=== PATIENT | female | born 1955 | race Caucasian/White ===

== ENCOUNTER 2018-12-04 11:25 | Inpatient (IN) | payer BC ==
[~2018-12-04] VITALS: Ht 157.5 cm; Wt 84.4 kg
[~2018-12-04 11:25] MED LIST: ATIVAN1 MG PO; CHRONULAC30 ML PO; GLUCOPHAGE1000 MG PO; LIBRIUM25 MG PO; MACROBID100 MG PO; OMEPRAZOLE20 M1 PO; PEPCID20 MG PO; PROZAC20 MG PO; THERAGRAN M [BK1 TAB PO; XIFAXAN550 MG PO
[2018-12-04] MEDS ORDERED: NEURONTIN 300300 MG PO (11:56)
[2018-12-04] MEDS ORDERED: TRAZODONE HCL150 MG PO (11:58)
--- NOTE | 2018-12-04 12:07 | NUR ---
22G IV X1 STICK TO LEFT FOREARM AND RIGHT AC. DRESSING APPLIED TO BOTH SITES, CDI.
[2018-12-04 12:20] VITALS: BP 113/36; BMI 34.1
[2018-12-04 13:11] LABS: BASOPHILS 0.5 % (0-2); EOSINOPHILS 1.1 % (0-7); IMMATURE GRANULOCYTES 0.2 % (0-5); LYMPHOCYTES 20.6 % (15-50); MCH 22.8 pg (26.0-34.0); MCHC 29.8 g/dL (31.0-37.0); MCV 76.4 fL (80.0-100.0); MEAN PLATELET VOLUME 10.4 fL (7.4-10.4); NEUTROPHILS 70.6 % (40-80); PLATELET COUNT 121 10x3/uL (130-400); RBC 2.59 10x6/uL (4.00-5.40); RDW 15.6 % (11.5-14.5); WBC 6.3 10x3/uL (4.8-10.8)
[2018-12-04 13:13] LABS: HEMATOCRIT 19.8 % (36.0-48.0); HEMOGLOBIN 5.9 g/dL (12-16)
[2018-12-04 13:57] LABS: % SATURATION 3 % (15-55); IRON 13 ug/dl (35-150); TOTAL IRON BIND CAPACITY 406 ug/dl (260-445); UNSAT IRON BIND CAPACITY 393 ug/dl (150-375)
[2018-12-04 14:08] LABS: INR 1.16 (0.85-1.17); PROTIME 14.2 SECONDS (11.6-15.0)
[2018-12-04 14:13] LABS: APTT 34.2 SECONDS (22.8-39.4)
--- NOTE | 2018-12-04 14:57 | NUR ---
1/2 UNITS OF BLOOD STARTING TRASNFUSE AT 100 CC/HR PATIENT HAS NEVER RECEIVED BLOOD.
[2018-12-04 15:49] LABS: ALBUMIN 3.1 g/dL (3.4-5.0); ANION GAP 19.1 mmol/L (8-16); BILIRUBIN - TOTAL 0.41 mg/dL (0.2-1.3); CALCIUM 8.8 mg/dL (8.5-10.1); CARBON DIOXIDE 20.1 mmol/L (21.0-32.0); POTASSIUM - SERUM 4.2 mmol/L (3.5-5.1); PROTEIN - SERUM 6.2 g/dL (6.4-8.2)
--- NOTE | 2018-12-04 16:05 | NUR ---
WILL ORDER FOR REDRAW FOR CBC ONE HOUR AFTER THE SECOND UNIT OF BLOOD IS DONE INFUSING.
--- NOTE | 2018-12-04 18:28 | NUR ---
PT HAS JUST INFORMED ME THAT SHE HAD A BM AND HAD BRIGHT RED BLOOD IN STOOL. I PUT A HAT IN THE TOIELT AND TOLD HER NEXT TIME SHE HAS A BM TO USE IT AND PUSH HER CALL LIGHT.
--- NOTE | 2018-12-04 18:33 | NUR ---
POST TRANSFUSION WITH FIRST UNIT WITH TEMP OF 99.4. PAGE INTO DR FONG FOR SOME TYLENOL AND ALSO TO LET HIM KNOW THAT PATIENT PASSED SOME BRIGHT RED STOOL AND MADE PRIMARY NURSE JACKELIN AWARE OF THIS.
--- NOTE | 2018-12-04 18:44 | NUR ---
DR FNOG TO CALL BACK WITH NEW ORDERS.
--- NOTE | 2018-12-04 18:44 | NUR ---
MAY WAIT 1-2HRS TO TRANSFUE 2ND UNIT OF BLOOD. PT IS FEBRILE AT 99.4. WILL GIVE TYLENOL AND RECHECK
--- NOTE | 2018-12-04 19:20 | NUR ---
PATIENT RESTING WITH NO S/S OF DISTRESS AND GUEST AT BEDSIDE. PATIENT DENIES NEEDS AT THIS TIME. TEMP 99.4, TYLENOL WAS ADMINISTERED BY DAYSHIFT NURSE. WILL RECHECK TEMP PRIOR TO ADMINISTERING SECOND UNIT PRBC'S. BED IN LOWEST POSITION AND CALL LIGHT WITHIN REACH. ENCOURAGED THE PATIENT TO CALL IF SHE HAS NEEDS. WILL CONTINUE TO MONITOR.
[2018-12-04 19:53] VITALS: BP 114/38
--- NOTE | 2018-12-04 20:47 | NUR ---
PATIENT REQUESTED THAT DOCTOR BE CALLED TO ASK IF SHE CAN EAT PRIOR TO MIDNIGHT.
--- NOTE | 2018-12-04 20:50 | NUR ---
PAGED DR. FONG IN REGARDS TO PATIENT REQUEST
[2018-12-04 22:11] VITALS: BP 101/41
--- NOTE | 2018-12-04 22:15 | NUR ---
BEGAN TRANSFUSING SECOND UNIT PRBC'S
[2018-12-04 22:30] VITALS: BP 133/50
--- NOTE | 2018-12-04 22:36 | NUR ---
MONITORING PATIENT WHILE BLOOD TRANSFUSING. NO S/S OF DISTRESS, VSS.
[2018-12-04 23:00] VITALS: BP 107/40
[2018-12-05] VITALS (8 sets, daily range): BP systolic 101–120; BP diastolic 31–59; Ht 157.5 cm; Wt 84.4 kg
[2018-12-05 03:09] LABS: BASOPHILS 0.4 % (0-2); EOSINOPHILS 2.6 % (0-7); HEMATOCRIT 22.5 % (36.0-48.0); IMMATURE GRANULOCYTES 0.2 % (0-5); LYMPHOCYTES 36.4 % (15-50); MCH 24.7 pg (26.0-34.0); MCHC 32.4 g/dL (31.0-37.0); MCV 76.3 fL (80.0-100.0); MEAN PLATELET VOLUME 10.7 fL (7.4-10.4); MONOCYTES 8.1 % (2-11); NEUTROPHILS 52.3 % (40-80); PLATELET COUNT 103 10x3/uL (130-400); RBC 2.95 10x6/uL (4.00-5.40); RDW 15.4 % (11.5-14.5); WBC 4.9 10x3/uL (4.8-10.8)
[2018-12-05 03:13] LABS: HEMOGLOBIN 7.3 g/dL (12-16)
--- NOTE | 2018-12-05 03:17 | NUR ---
REC'D LAB RESULTS, HGB 7.3
[2018-12-05 03:28] LABS: ALKALINE PHOSPHATASE 63 U/L (46-116); ALT (SGPT) 19 U/L (10-68); BILIRUBIN - TOTAL 0.98 mg/dL (0.2-1.3); CARBON DIOXIDE 22.8 mmol/L (21.0-32.0); CHLORIDE - SERUM 110 mmol/L (98-107); POTASSIUM - SERUM 3.8 mmol/L (3.5-5.1); PROTEIN - SERUM 5.9 g/dL (6.4-8.2); SODIUM 144 mmol/L (136-145); UREA NITROGEN 11 mg/dL (7-18); eGFR NON AFRICAN AMERICAN 89 mL/min (90-120)
[2018-12-05 03:30] LABS: CALC OSMOLALITY 287 mosm/kg (275-300); CREATININE - SERUM 0.7 mg/dL (0.6-1.3); GLUCOSE 133 mg/dL (74-106)
--- NOTE | 2018-12-05 03:42 | NUR ---
NOTIFIED DR. FONG THAT THE PATIENT HAS A CRITICAL LOW HGB OF 7.3. DR. FONG ORDERED TO TRANSFUSE 2 MORE UNITS OF PRBC'S.
--- NOTE | 2018-12-05 04:10 | NUR ---
BEGAN TRANSFUSING THIRD UNIT PRBC'S PER ORDERS
--- NOTE | 2018-12-05 06:46 | NUR ---
BEGAN TRANSFUSING 4TH UNIT PRBC'S. NO S/S OF DISTRESS.
--- NOTE | 2018-12-05 07:00 | NUR ---
REPORT RECIEVED. PT CURRENTLY SITTING SEMI FOWLERS IN BED. SHE HAS A L FA PIV INFUSING BLOOD @ 100 AND A R AC THAT IS SL. GI LAB IS CURRENTLY IN ROOM GETTING PT READY FOR HER EGD. RR EVEN AND UNLABORED. NO DISTRESS NOTED. WILL CTM
[2018-12-05 10:08] LABS: BASOPHILS 0.4 % (0-2); IMMATURE GRANULOCYTES 0.4 % (0-5); LYMPHOCYTES 24.7 % (15-50); MCH 25.8 pg (26.0-34.0); MCHC 33.1 g/dL (31.0-37.0); MEAN PLATELET VOLUME 9.9 fL (7.4-10.4); MONOCYTES 9.2 % (2-11); NEUTROPHILS 62.3 % (40-80); PLATELET COUNT 90 10x3/uL (130-400); RDW 15.7 % (11.5-14.5); WBC 4.7 10x3/uL (4.8-10.8)
[2018-12-05 10:17] LABS: HEMATOCRIT 28.4 % (36.0-48.0); HEMOGLOBIN 9.4 g/dL (12-16); RBC 3.64 10x6/uL (4.00-5.40)
--- NOTE | 2018-12-05 14:25 | HP ---
PATIENT: CARYN HOLCOMB MEDICAL RECORD: [id number] ACCOUNT: [id number] LOCATION:[address] : [birth year] ADMISSION DATE: 12/04/18 PCP: SILVESTRE FONG MD HISTORY AND PHYSICAL EXAMINATION REASON FOR ADMISSION: Exertional shortness of breath and anemia. HISTORY OF PRESENT ILLNESS: The patient is a 63-year-old female with history of remote alcohol abuse, hepatic encephalopathy and diabetes mellitus. She states for the last couple of months, she has had mild exertional shortness of breath, getting worse most recently. She denies chest pain or cough. She also has had some intermittent dark stools that come and go. She has had some intermittent epigastric discomfort as well. She states she has not been drinking at all for over a year and has not had any other real problems. She denies using anti-inflammatories. She came to the office with her this week and was scheduled for an echo on lab work that was accomplished today with echo showing moderate aortic stenosis and a hemoglobin of 5.0. A rectal exam was done showing brown heme-negative stool. She has now been admitted to the hospital for anemia, transfusion and GI consultation. She has no history of peptic ulcer disease or GI bleeding nor she had anemia in the past. PAST MEDICAL HISTORY: Was admitted for hepatic encephalopathy on 12/28/2015. Ethanol abuse, AODM for 10 years, anxiety, remote history of carpal tunnel syndrome in bilateral wrist, morbid obesity, hypokalemia, diabetic neuropathy. PAST SURGICAL HISTORY: Tonsillectomy, appendectomy, right rotator cuff repair. FAMILY HISTORY: Father at 74 from colon cancer. Mother at 73 from malignant neoplasm of the lung and brain. Sister is alive with breast disease. SOCIAL HISTORY: She is , remote alcohol and nonsmoker. She lives at home with her . CURRENT MEDICATIONS: Gabapentin 300 mg at bedtime, miconazole vaginal cream 1 applicator per vagina p.r.n., metformin 1000 mg b.i.d., trazadone 50 mg 2-3 tabs at bedtime for sleep, multivitamin 1 daily. REVIEW OF SYSTEMS: CONSTITUTIONAL: Has been fatigued for the last several months. No fever or weight change. HEENT: No recent visual change, sinus congestion, or sore throat. RESPIRATORY: Exertional shortness of breath with walking 10 yards. Denies cough or chest pain or hemoptysis. CARDIAC: No exertional chest pain, claudication or edema plus dyspnea on exertion. GASTROINTESTINAL: No nausea or vomiting, but has had some dark stools intermittently that come and go and epigastric discomfort. Denies swallowing dysphagia. She has been referred for colonoscopy with Dr. Ramirez in the past, but did not perform it. INTEGUMENT: No recent rash, itching, petechia or icterus. PSYCHIATRIC: Denies depressed mood, some trouble with sleep and anxiety. MUSCULOSKELETAL: No arthralgias. NEUROLOGIC: No history of stroke, TIA, vascular headaches, or seizures. PHYSICAL EXAMINATION: HISTORY AND PHYSICAL [id number] ZHANGCARYNEVAN ARMSTRONG VITAL SIGNS: Her blood pressure is 130/70, heart rate is 90 and regular. Height is 64 inches, BMI 31, weight 183 pounds, stable. HEENT: Normocephalic. Eyes are clear with lens implants. Sclerae nonicteric. Oropharynx unremarkable. NECK: Supple, without bruits or masses. CHEST: Distant breath sounds without wheeze or rales. HEART: Regular rate and rhythm with a III/ aortic systolic murmur. PMI appropriate. BREASTS: Symmetrical. ABDOMEN: Mildly obese, soft, minimally tender in the epigastrium. No rebound. Liver is not enlarged. RECTAL: Reveals no rectal masses. Stool is brown, heme-negative. EXTREMITIES: No CCE. SKIN: Pale. LABORATORY DATA: Shows stool that is heme negative. Her white count is 4600, H&H is 5.6 and 19.3 respectively with an MCV of 79, platelet count is 129, MCHC is low at 29. SGOT is 46. Rest of liver functions are normal. Blood sugar nonfasting is 181. Cholesterol is 169, triglycerides 67, LDL is 113. TSH 1.73. UA shows 25-30 white cells per high power field, 1+ bacteria. ASSESSMENT: 1. Symptomatic anemia. 2. Moderate aortic stenosis. 3. History of melena. 4. Family history of colon cancer in her mother. 5. Urinary tract infection, asymptomatic. 6. Diabetes mellitus, fair control. 7. Morbid obesity. 8. History of alcoholism, currently in remission. 9. History of hepatic encephalopathy. PLAN: The patient is admitted for anemia workup, blood transfusion cautiously. GI consultation with Dr. Voise. Further workup pending clinical course. TRANSINT:[id number] Voice Confirmation ID: [id number] DOCUMENT ID: [id number] SILVESTRE FONG MD at 1425 CC: [id number] DICTATION DATE: 12/04/18 1341 SCRUBBER MACHINE TENDER: 12/04/18 1500 ADM IN [place] [id number] [place] [address]
--- NOTE | 2018-12-05 14:47 | MORECARE ---
CASE MANAGEMENT DISCHARGE SUMMARY PATIENT: CARYN HOLCOMB UNIT: [id number] ADM DATE: 12/04/18 AGE: 63 : 53 SEX: F ROOM/BED: D.1202 AUTHOR: VAHID DOYLE PHYSICIAN: REFERRING PHYSICIAN: SILVESTRE FONG MD DATE OF SERVICE: 12/05/18 Discharge Plan Patient Name: CARYN HOLCOMB Facility: [facility]:[place] : 1955 Planned Disposition: Home Anticipated Discharge Date: Discharge Date: Expected LOS: Initial Reviewer: [email or web address] Initial Review Date: 12/04/2018 Generated: 12/05/18 3:46 pm Comments DCP- Discharge Planning Updated by [email or web address]: Kourtney Centeno on 12/05/18 1:[address] Patient Name: CARYN HOLCOMB Admission Status: Elective Accout number: [id number] Admission Date: 12-04-2018 : 1955 Admission Diagnosis: Attending: SILVESTRE FONG Current LOS: 1 Anticipated DC Date: Planned Disposition: Home Primary Insurance: [employer] O Discharge Planning Comments: CM met with patient at bedside after explaining CM role and obtaining verbal consent. Patient lives at home with her where she is independent with her care and plans to return there upon discharge. Patient feels this would be a safe discharge. CM discussed availability / needs of home health and medical equipment. Patient denies any discharge needs at this time. Patient states she will have her family drive her home upon discharge. CM will continue to follow and assist as needed with discharge planning / needs. Air Press Operator: Kourtney Centeno DCPIA - Discharge Planning Initial Assessment Updated by [id number]: Kourtney Centeno on 12/05/18 2:42 pm * Is the patient Alert and Oriented? Yes * How many steps to enter\exit or inside your home? * PCP [facility] * [facility] * Preadmission Environment Home with Family * ADLs Independent * Equipment None * List name and contact numbers for known caregivers / representatives who currently or will assist patient after discharge: KURT HOLCOMB - [facility] - [phone] * Verbal permission to speak to the caregivers and representatives has been obtained from the patient. Yes * Community resources currently utilized None * Additional services required to return to the preadmission environment? No * Can the patient safely return to the preadmission environment? Yes * Has this patient been hospitalized within the prior 30 days at any hospital? No Patient Name: CARYN HOLCOMB Page [id number] at 1447 All edits/amendments must be made on the electronic document DICTATION DATE: 12/05/181445 SPREADER OPERATOR AUTOMATIC: CHACE 12/05/181445 RPT#: [id number] DC DATE: STATUS: ADM IN [facility] [address] [place] [address] END OF REPORT
[2018-12-05 16:17] LABS: BASOPHILS 0.2 % (0-2); EOSINOPHILS 2.3 % (0-7); HEMATOCRIT 29.2 % (36.0-48.0); HEMOGLOBIN 9.6 g/dL (12-16); IMMATURE GRANULOCYTES 0.4 % (0-5); LYMPHOCYTES 25.4 % (15-50); MCH 25.7 pg (26.0-34.0); MCHC 32.9 g/dL (31.0-37.0); MCV 78.1 fL (80.0-100.0); MEAN PLATELET VOLUME 11.1 fL (7.4-10.4); MONOCYTES 9.2 % (2-11); NEUTROPHILS 62.5 % (40-80); PLATELET COUNT 103 10x3/uL (130-400); RBC 3.74 10x6/uL (4.00-5.40); RDW 15.5 % (11.5-14.5); WBC 4.8 10x3/uL (4.8-10.8)
--- NOTE | 2018-12-05 16:33 | NUR ---
I have reviewed this patient and I concur with the Shift Assessment completed by the Licensed Practical Nurse today this shift.
--- NOTE | 2018-12-05 19:20 | NUR ---
PT CARE ASSUMED. RR EVEN AND UNLABORED. NO S/SX OF DISTRESS NOTED AT THIS TIME. NO VOICED C/O OR CONCERNS. PRESENT AT BEDSIDE. WILL CPOC.
[2018-12-06 00:23] VITALS: BP 106/48
[2018-12-06 04:49] VITALS: BP 101/52
[2018-12-06 06:04] LABS: BASOPHILS 0.5 % (0-2); EOSINOPHILS 2.5 % (0-7); HEMATOCRIT 28.8 % (36.0-48.0); HEMOGLOBIN 9.5 g/dL (12-16); IMMATURE GRANULOCYTES 0.5 % (0-5); LYMPHOCYTES 27.6 % (15-50); MCH 25.5 pg (26.0-34.0); MCV 77.4 fL (80.0-100.0); MONOCYTES 10.6 % (2-11); NEUTROPHILS 58.3 % (40-80); PLATELET COUNT 107 10x3/uL (130-400); RBC 3.72 10x6/uL (4.00-5.40); RDW 15.8 % (11.5-14.5); WBC 5.7 10x3/uL (4.8-10.8)
--- NOTE | 2018-12-06 06:08 | NUR ---
I have reviewed this patient and I concur with the Shift Assessment completed by the Licensed Practical Nurse today this shift.
[2018-12-06 07:45] VITALS: BP 114/58
--- NOTE | 2018-12-06 07:49 | NUR ---
PT SITTING UP IN BED EATING BREAKFAST. SHIFT ASSESSMENT PERFORMED. DENIES ANY NEEDS AT THIS TIME. WILL CONT TO FOLLOW POC
[2018-12-06] MEDS ORDERED: CARAFATE1 G PO (10:51)
[2018-12-06] MEDS ORDERED: PROTONIX40 MG PO (10:52)
[2018-12-06] MEDS ORDERED: XIFAXAN550 MG PO (10:52)
--- NOTE | 2018-12-06 12:13 | NUR ---
DISCHARGE INSTRUCTIONS REVIEWED WITH PT AND ALL QUESTIONS ANSWERED. PIV REMOVED WITH CATHETER TIP INTACT. TELELMETRY REMOVED AND GIVEN TO JACK FRAME TENDER JUDY. ASSISTED PT TO FRONT OF HOSPITAL WHERE SHE LEFT WITH SPOUSE
--- NOTE | 2018-12-08 11:10 | MORECARE ---
CASE MANAGEMENT DISCHARGE SUMMARY PATIENT: CARYN HOLCOMB UNIT: [id number] ADM DATE: 12/04/18 AGE: 63 : 54 SEX: F ROOM/BED: D.1202 AUTHOR: VIVEKDOC PHYSICIAN: REFERRING PHYSICIAN: SILVESTRE FONG MD DATE OF SERVICE: 12/08/18 Discharge Plan Patient Name: CARYN HOLCOMB Facility: [facility]:[place] : 1955 Planned Disposition: Home Anticipated Discharge Date: Discharge Date: 12/06/2018 Expected LOS: Initial Reviewer: [email or web address] Initial Review Date: 12/04/2018 Generated: 12/08/18 12:09 pm Comments DCP- Discharge Planning Updated by [email or web address]: Kourtney Centeno on 12/05/18 1:[address] Patient Name: CARYN HOLCOMB Admission Status: Elective Accout number: [id number] Admission Date: 12-04-2018 : 1955 Admission Diagnosis: Attending: SILVESTRE FONG Current LOS: 1 Anticipated DC Date: Planned Disposition: Home Primary Insurance: [employer] O Discharge Planning Comments: CM met with patient at bedside after explaining CM role and obtaining verbal consent. Patient lives at home with her where she is independent with her care and plans to return there upon discharge. Patient feels this would be a safe discharge. CM discussed availability / needs of home health and medical equipment. Patient denies any discharge needs at this time. Patient states she will have her family drive her home upon discharge. CM will continue to follow and assist as needed with discharge planning / needs. Design Technology Teacher: Kourtney Centeno DCPIA - Discharge Planning Initial Assessment Updated by [email or web address]: Kourtney Centeno on 12/05/18 2:42 pm * Is the patient Alert and Oriented? Yes * How many steps to enter\exit or inside your home? * PCP [facility] * [facility] * Preadmission Environment Home with Family * ADLs Independent * Equipment None * List name and contact numbers for known caregivers / representatives who currently or will assist patient after discharge: KURT HOLCOMB - [facility] - [phone] * Verbal permission to speak to the caregivers and representatives has been obtained from the patient. Yes * Community resources currently utilized None * Additional services required to return to the preadmission environment? No * Can the patient safely return to the preadmission environment? Yes * Has this patient been hospitalized within the prior 30 days at any hospital? No Last DP export: 12/05/18 1:47 p Patient Name: CARYN HOLCOMB Page [id number] at 1110 All edits/amendments must be made on the electronic document DICTATION DATE: 12/08/181108 ASSISTIVE TECHNOLOGY SPECIALIST: CHACE 12/08/18 110 RPT#: [id number] DC DATE:12/06/18 STATUS: DIS IN [facility] [address] [place] [address] END OF REPORT
== END 2018-12-06 12:32 | disposition home or self-care (01) | DRG 378 ==
LOC: D.SDCHOLD 11:25 → D.M3 11:31
PROVIDERS: Family Medicine; Internal Medicine Gastroenterology; ADMIT Family Medicine; ATTEND Family Medicine
PROC: 0DB68ZX Excision of Stomach, Via Natural or Artificial Opening Endoscopic, Diagnostic (ICD-10-PCS; principal; 2018-12-05 07:00)
DX: K92.2 Gastrointestinal hemorrhage, unspecified (principal); N39.0 Urinary tract infection, site not specified; K76.6 Portal hypertension; D64.9 Anemia, unspecified; I35.0 Nonrheumatic aortic (valve) stenosis; E11.9 Type 2 diabetes mellitus without complications; F10.21 Alcohol dependence, in remission; E66.01 Morbid (severe) obesity due to excess calories; Z68.34 Body mass index [BMI] 34.0-34.9, adult; K21.0 Gastro-esophageal reflux disease with esophagitis; K44.9 Diaphragmatic hernia without obstruction or gangrene; K31.89 Other diseases of stomach and duodenum; K70.30 Alcoholic cirrhosis of liver without ascites

== ENCOUNTER 2018-12-10 17:08 | Inpatient (IN) | payer BC ==
[~2018-12-10] VITALS: Ht 157.5 cm; Wt 83.0 kg
[~2018-12-10 17:08] MED LIST changes: +CARAFATE1 G PO; +NEURONTIN 300300 MG PO; +PROTONIX40 MG PO; +TRAZODONE HCL150 MG PO
[2018-12-10 19:20] VITALS: BP 92/47; BMI 33.5
[2018-12-10 20:00] VITALS: BP 115/57
[2018-12-10 21:00] VITALS: BP 119/57
[2018-12-10 22:00] VITALS: BP 113/101
[2018-12-10 23:00] VITALS: BP 131/71
--- NOTE | 2018-12-10 23:00 | NUR ---
SHIFT ASSESSMENT DONE. VS STABLE. NO VISUAL CUES OF DISTRESS NOTED. WILL CONTINUE TO MONITOR.
[2018-12-11] VITALS (19 sets, daily range): BP systolic 100–130; BP diastolic 45–86; Ht 157.5 cm; Wt 83.0 kg
--- NOTE | 2018-12-11 01:00 | NUR ---
VS STABLE. NO VISUAL CUES OF DISTRESS NOTED. WILL CONTINUE TO MONITOR.
--- NOTE | 2018-12-11 03:00 | NUR ---
VS STABLE. NO VISUAL CUES OF DISTRESS NOTED. WILL CONTINUE TO MONITOR.
[2018-12-11 04:55] LABS: ALKALINE PHOSPHATASE 53 U/L (46-116); ALT (SGPT) 18 U/L (10-68); BILIRUBIN - TOTAL 0.64 mg/dL (0.2-1.3); CALC OSMOLALITY 287 mosm/kg (275-300); CALCIUM 9.2 mg/dL (8.5-10.1); CARBON DIOXIDE 24.8 mmol/L (21.0-32.0); CHLORIDE - SERUM 107 mmol/L (98-107); CREATININE - SERUM 0.8 mg/dL (0.6-1.3); GLUCOSE 149 mg/dL (74-106); POTASSIUM - SERUM 3.9 mmol/L (3.5-5.1); PROTEIN - SERUM 5.8 g/dL (6.4-8.2); SODIUM 141 mmol/L (136-145); UREA NITROGEN 24 mg/dL (7-18); eGFR NON AFRICAN AMERICAN 76 mL/min (90-120)
--- NOTE | 2018-12-11 05:00 | NUR ---
VS STABLE. NO VISUAL CUES OF DISTRESS NOTED. WILL CONTINUE TO MONITOR.
[2018-12-11 05:05] LABS: BASOPHILS 0.5 % (0-2); EOSINOPHILS 2.6 % (0-7); HEMATOCRIT 27.3 % (36.0-48.0); HEMOGLOBIN 8.9 g/dL (12-16); IMMATURE GRANULOCYTES 0.2 % (0-5); LYMPHOCYTES 30.6 % (15-50); MCH 26.3 pg (26.0-34.0); MCHC 32.6 g/dL (31.0-37.0); MCV 80.5 fL (80.0-100.0); MEAN PLATELET VOLUME 11.2 fL (7.4-10.4); MONOCYTES 7.4 % (2-11); NEUTROPHILS 58.7 % (40-80); PLATELET COUNT 77 10x3/uL (130-400); RBC 3.39 10x6/uL (4.00-5.40); RDW 16.7 % (11.5-14.5); WBC 6.1 10x3/uL (4.8-10.8)
[2018-12-11 05:40] LABS: PLATELET ESTIMATE DECREASED
--- NOTE | 2018-12-11 07:00 | NUR ---
REC'D REPORT AND REAUMED CARE, AAO, VSS, O2 VIA ROOM AIR, NS INFUSING TO LEFT AC PIV, CALL LIGHT IN REACH, ASSESSMENT COMPLETED PER FLOWSHEET, N NEEDS A THIS TIME
--- NOTE | 2018-12-11 07:14 | HP ---
PATIENT: CARYN HOLCOMB MEDICAL RECORD: [id number] ACCOUNT: [id number] LOCATION:[facility] D2303 : [birth year] ADMISSION DATE: 12/10/18 PCP: SILVESTRE FONG MD HISTORY AND PHYSICAL EXAMINATION REASON FOR ADMISSION: Rectal bleeding. HISTORY OF PRESENT ILLNESS: The patient is a 63-year-old female recently diagnosed with portal hypertensive gastropathy and GI bleed. She received 3 units of packed cells in the hospital, an EGD by Dr. Adrian and discharged home on 12/06/2018. She has been stable since that time except for a few dark stools. The volume of stool picked up over the last 2 days, and this afternoon, she developed 3 large bloody red stools. No abdominal cramping, but somewhat lightheaded. She was advised to come to the office where stat CBC showed H and H of 7.6 and 21, had been 9.5 and 28 at discharge less than a week ago. She is mildly hypotensive and tachycardic. She is now being admitted to the hospital for transfusion, IV Protonix, and GI consult. She denies chest pain. PAST MEDICAL HISTORY: Moderate aortic stenosis, portal hypertensive gastropathy with gastrointestinal bleed with anemia, diabetes mellitus fair control, morbid obesity, history of alcoholism in remission, history of hepatic encephalopathy, alcoholic cirrhosis, anxiety, diabetic neuropathy in bilateral feet, and carpal tunnel syndrome. PAST SURGICAL HISTORY: Tonsillectomy, appendectomy, right rotator cuff repair. FAMILY HISTORY: Father at 74 from colon cancer. Mother at 73 from malignant neoplasm of the lung and brain. Sisters alive with breast disease. SOCIAL HISTORY: She is , has not had alcohol in over years and nonsmoker, lives with her who is very supportive. HOME MEDICATIONS: Gabapentin 300 mg p.o. at bedtime, Protonix 40 mg b.i.d., Xifaxan 550 mg p.o. b.i.d., Carafate 1 gram p.o. t.i.d. with meals, and metformin 1000 mg p.o. b.i.d. ALLERGIES: None mentioned. PHYSICAL EXAMINATION: GENERAL: Alert, 63-year-old female, somewhat pale appearing, in no acute distress. VITAL SIGNS: Heart rate is 110, blood pressure is 110/50. She is afebrile. HEENT: Unremarkable except for pale palpebral conjunctivae. Oropharynx unremarkable. NECK: Supple. CHEST: Clear with a II/ aortic systolic murmur. ABDOMEN: Soft, nontender throughout. Bowel sounds are active. RECTAL: Deferred. Active rectal bleeding was noted by the family. EXTREMITIES: No gross edema. NEUROLOGICAL: Oriented to person, place, and time. Cranial nerves intact. Gait is normal. LABORATORY DATA: Hemoglobin 7.6, hematocrit is 24.8, and platelet count is 94,000. White count 7700. HISTORY AND PHYSICAL [id number] CARYN HOLCOMB ASSESSMENT: 1. Recurrent gastrointestinal bleeding with known portal hypertensive gastropathy. 2. Recent normal CEA. 3. Anemia, symptomatic. 4. Aortic stenosis, moderate. 5. Alcoholism, in remission. 6. Alcoholic cirrhosis. 7. Diabetes mellitus. PLAN: The patient will be admitted to monitored bed. If she develops increasing bleeding will be moved to the ICU. Dr. Adrian will be consulted, placed on IV Protonix and sliding scale insulin at this time. TRANSINT:[id number] Voice Confirmation ID: [id number] DOCUMENT ID: [id number] SILVESTRE FONG MD at 0714 CC: [id number] DICTATION DATE: 12/10/18 170 PHARMACEUTICAL SALES REPRESENTATIVE: 12/10/18 175 ADM IN [place] [address] [place] [address]
--- NOTE | 2018-12-11 20:45 | NUR ---
RECEIVED PT FROM ICU VIA W/C. PRESENT AT BEDSIDE. PT AMBULATORY, GAIT SLOW AND STEADY. PIV NOTED RIGHT HAND AND PIV NOTED IN L HAND NS 75ML/HR. PT EDUCATED SCRIBING MACHINE OPERATOR LIGHT FOR ASSISTANCE. DENIES NEEDS AT THIS TIME. RR EVEN AND UNLABORED ON RA. NO S/S OF DISTRESS NOTED. CALL LIGHT IN REACH. WILL CTM.
--- NOTE | 2018-12-11 20:56 | MORECARE ---
CASE MANAGEMENT DISCHARGE SUMMARY PATIENT: CARYN HOLCOMB UNIT: [id number] ADM DATE: 12/10/18 AGE: 63 : 53 SEX: F ROOM/BED: D.2303 AUTHOR: VIVEKDOC PHYSICIAN: REFERRING PHYSICIAN: SILEVSTRE FONG MD DATE OF SERVICE: 12/11/18 Discharge Plan Patient Name: CARYN HOLCOMB Facility: [facility]:[place] : 1955 Planned Disposition: Home Anticipated Discharge Date: Discharge Date: Expected LOS: Initial Reviewer: [email or web address] Initial Review Date: 12/10/2018 Generated: 12/11/18 9:56 pm Comments DCP- Discharge Planning Updated by [email or web address]: Kourtney Centeno on 12/11/18 7:[address] Patient Name: CARYN HOLCOMB Admission Status: Elective Accout number: [id number] Admission Date: 12-10-2018 : 1955 Admission Diagnosis: Attending: SILVESTRE FONG Current LOS: 1 Anticipated DC Date: Planned Disposition: Home Primary Insurance: [employer] O Discharge Planning Comments: CM met with patient at bedside after explaining CM role and obtaining verbal consent. Patient lives at home with her where she is independent with her care and plans to return there upon discharge. Patient feels this would be a safe discharge. CM discussed availability / needs of home health and medical equipment. Patient denies any discharge needs at this time. Patient states she will have her family drive her home upon discharge. CM will continue to follow and assist as needed with discharge planning / needs. Fitness Supervisor: Kourtney Centeno DCPIA - Discharge Planning Initial Assessment Updated by [email or web address]: Kourtney Centeno on 12/11/18 8:53 pm * Is the patient Alert and Oriented? Yes * How many steps to enter\exit or inside your home? * PCP [facility] * [facility] * Preadmission Environment Home with Family * ADLs Independent * Equipment None * List name and contact numbers for known caregivers / representatives who currently or will assist patient after discharge: KURT HOLCOMB - [facility] - [phone] * Verbal permission to speak to the caregivers and representatives has been obtained from the patient. Yes * Community resources currently utilized None * Additional services required to return to the preadmission environment? No * Can the patient safely return to the preadmission environment? Yes * Has this patient been hospitalized within the prior 30 days at any hospital? Yes Patient Name: CARYN HOLCOMB Page [id number] at 2055 All edits/amendments must be made on the electronic document DICTATION DATE: 12/11/182055 NEONATAL CRITICAL CARE NURSE: CHACE 12/11/182055 RPT#: [id number] DC DATE: STATUS: ADM IN [facility] [address] [place] [address] END OF REPORT
[2018-12-12] VITALS: BP 104/40
[2018-12-12 04:00] VITALS: BP 116/60
[2018-12-12 05:51] LABS: BASOPHILS 0.9 % (0-2); EOSINOPHILS 2.6 % (0-7); IMMATURE GRANULOCYTES 0.2 % (0-5); LYMPHOCYTES 24.3 % (15-50); MCH 27.3 pg (26.0-34.0); MCHC 33.3 g/dL (31.0-37.0); MONOCYTES 9.7 % (2-11); NEUTROPHILS 62.3 % (40-80); PLATELET COUNT 71 10x3/uL (130-400); RDW 16.3 % (11.5-14.5); WBC 5.4 10x3/uL (4.8-10.8)
[2018-12-12 06:02] LABS: HEMATOCRIT 33.6 % (36.0-48.0); HEMOGLOBIN 11.2 g/dL (12-16)
[2018-12-12 06:16] LABS: ANION GAP 14.8 mmol/L (8-16); CALCIUM 8.7 mg/dL (8.5-10.1); CARBON DIOXIDE 23.9 mmol/L (21.0-32.0); CREATININE - SERUM 0.9 mg/dL (0.6-1.3); POTASSIUM - SERUM 3.7 mmol/L (3.5-5.1)
--- NOTE | 2018-12-12 07:46 | NUR ---
AM ROUNDS MADE. PT C/O RIGHT SHOULDER PAIN AND STATES SHE CAN'T HARDLY MOVE IT OR LIFT IT UP AND STATES SHE FORGOT TO TELL MD. I STATED TO HER I WOULD GO TELL MD. SPOKE WITH DR. FONG AND STATED TO HIM WHAT PT STATED TO ME AND HE VERBALIZED UNDERSTANDING. STATED TO PT I TOLD MD AND SHE VARBALIZED UNDERSTANDING.
--- NOTE | 2018-12-12 07:50 | NUR ---
DR. FONG WENT AND SEEN PT.
[2018-12-12 08:00] VITALS: BP 118/68
[2018-12-12 12:00] VITALS: BP 122/53
--- NOTE | 2018-12-12 12:48 | NUR ---
THE PATIENT WAS LYING IN BED AND WATCHING TELEVISION WHEN STAFF ENTERED HER ROOM. BED IS IN THE LOW POSITION WITH SIDERAILS X2 AND CALL LIGHT WITHIN REACH. THE PATIENT WAS EDUCATED ON EUSE OF A CALL LIGHT AND DEMONSTRATES UNDERSTANDING VIA TEACHBACK METHOD. THE PATIENT APPEARS COMFORTABLE WITH NO QUESTIONS OR COCNERNS AT THIS TIME.
[2018-12-12 14:45] VITALS: BP 106/48
[2018-12-12 20:00] VITALS: BP 113/56
--- NOTE | 2018-12-12 20:20 | NUR ---
REPROT REECIEVED AND ROUNDING COMPLETE. PATIENT LAYING IN BED IN SUPINE POSITON. PATIENT ON HER CELL PHONE. PATIENT ASKED FOR A GLASS OF WATER, GAVE PATIENT GLASS OF WATER. PATIENT THEN ASKED ABOUT HER 2100 MEDICATIONS, REVIEWED WITH PATIENT. PATIENT HAS RIGHT AND LEFT PIV BOTH ARE SALINE LOCKED AT THIS TIME. PATIENT STATES SHE IS GOING HOME TOMORROW. PATIEN IS SHOWING NO S/SX OF DISTRESS AT THIS TIME. CALL LIGHT WITHIN REACH AND BED IN LOWEST LOCKED POSITION. NO OTHER NEEDS AT THIS TIME.
[2018-12-13 04:00] VITALS: BP 123/59
[2018-12-13 06:55] LABS: BASOPHILS 0.2 % (0-2); HEMATOCRIT 32.5 % (36.0-48.0); HEMOGLOBIN 10.8 g/dL (12-16); IMMATURE GRANULOCYTES 0.2 % (0-5); LYMPHOCYTES 26.5 % (15-50); MCH 27.3 pg (26.0-34.0); MCHC 33.2 g/dL (31.0-37.0); MCV 82.3 fL (80.0-100.0); MEAN PLATELET VOLUME 11.7 fL (7.4-10.4); MONOCYTES 8.9 % (2-11); NEUTROPHILS 61.2 % (40-80); PLATELET COUNT 66 10x3/uL (130-400); RBC 3.95 10x6/uL (4.00-5.40); RDW 16.2 % (11.5-14.5); WBC 5.1 10x3/uL (4.8-10.8)
[2018-12-13 06:59] LABS: CALC OSMOLALITY 284 mosm/kg (275-300); CALCIUM 8.7 mg/dL (8.5-10.1); CARBON DIOXIDE 24.9 mmol/L (21.0-32.0); CHLORIDE - SERUM 108 mmol/L (98-107); CREATININE - SERUM 0.7 mg/dL (0.6-1.3); GLUCOSE 162 mg/dL (74-106); POTASSIUM - SERUM 3.6 mmol/L (3.5-5.1); SODIUM 142 mmol/L (136-145); eGFR NON AFRICAN AMERICAN 89 mL/min (90-120)
[2018-12-13 07:03] LABS: PLATELET ESTIMATE DECREASED
[2018-12-13 07:07] LABS: UREA NITROGEN 8 mg/dL (7-18)
--- NOTE | 2018-12-13 07:24 | NUR ---
I have reviewed this patient and I concur with the Shift Assessment completed by the Licensed Practical Nurse today this shift.
[2018-12-13 08:10] VITALS: BP 121/59
[2018-12-13] MEDS ORDERED: FERROUS SULFAT325 MG PO (08:25)
--- NOTE | 2018-12-13 08:45 | NUR ---
ALERT AND ORIENTED. NO C/O PAIN. RESP EVEN AND UNLABORED. FAMILY AT BS.
--- NOTE | 2018-12-13 10:17 | MORECARE ---
CASE MANAGEMENT DISCHARGE SUMMARY PATIENT: CARYN HOLCOMB UNIT: [id number] ADM DATE: 12/10/18 AGE: 63 : 53 SEX: F ROOM/BED: D.7727 AUTHOR: VAHID DOYLE PHYSICIAN: REFERRING PHYSICIAN: SILVESTRE FONG MD DATE OF SERVICE: 12/13/18 Discharge Plan Patient Name: CARYN HOLCOMB Facility: [facility]:[place] : 1955 Planned Disposition: Home Anticipated Discharge Date: Discharge Date: Expected LOS: Initial Reviewer: [email or web address] Initial Review Date: 12/10/2018 Generated: 12/13/18 11:17 am Comments DCP- Discharge Planning Updated by [email or web address]: Ruby Hunter on 12/13/18 9:[address] Patient Name: CARYN HOLCOMB Encounter No: [id number] : 1955 Primary Insurance: [employer] [facility] Anticipated DC Date: Planned Disposition: Home External Planned Provider: : DCP follow-up note: Patient and family in agreement with discharge plan. No changes to plan. Case management will follow and assist as needed. Ruby Hunter DCP- Discharge Planning Updated by [email or web address]: Kourtney Centeno on 12/11/18 7:[address] Patient Name: CARYN HOLCOMB Admission Status: Elective Accout number: [id number] Admission Date: 12-10-2018 : 1955 Admission Diagnosis: Attending: SILVESTRE FONG Current LOS: 1 Anticipated DC Date: Planned Disposition: Home Primary Insurance: [employer] [facility] Discharge Planning Comments: CM met with patient at bedside after explaining CM role and obtaining verbal consent. Patient lives at home with her where she is independent with her care and plans to return there upon discharge. Patient feels this would be a safe discharge. CM discussed availability / needs of home health and medical equipment. Patient denies any discharge needs at this time. Patient states she will have her family drive her home upon discharge. CM will continue to follow and assist as needed with discharge planning / needs. Material Damage Adjuster: Kourtney Centeno DCPIA - Discharge Planning Initial Assessment Updated by [email or web address]: Kourtney Centeno on 12/11/18 8:53 pm * Is the patient Alert and Oriented? Yes * How many steps to enter\exit or inside your home? * PCP [facility] * [facility] * Preadmission Environment Home with Family * ADLs Independent * Equipment None * List name and contact numbers for known caregivers / representatives who currently or will assist patient after discharge: KURT HOLCOMB - [facility] - [phone] * Verbal permission to speak to the caregivers and representatives has been obtained from the patient. Yes * Community resources currently utilized None * Additional services required to return to the preadmission environment? No * Can the patient safely return to the preadmission environment? Yes * Has this patient been hospitalized within the prior 30 days at any hospital? Yes Last DP export: 12/11/18 7:56 p Patient Name: CARYN HOLCOMB Page [id number] at 1017 All edits/amendments must be made on the electronic document DICTATION DATE: 12/13/18 1017 MARKET RESEARCH SPECIALIST: CHACE 12/13/18 1017 RPT#: [id number] DC DATE: STATUS: ADM IN [facility] [address] [place] [address] END OF REPORT
--- NOTE | 2018-12-14 11:59 | MORECARE ---
CASE MANAGEMENT DISCHARGE SUMMARY PATIENT: CARYN HOLCOMB UNIT: [id number] ADM DATE: 12/10/18 AGE: 63 : 53 SEX: F ROOM/BED: D.4946 AUTHOR: VAHID DOYLE PHYSICIAN: REFERRING PHYSICIAN: SILVESTRE FONG MD DATE OF SERVICE: 12/14/18 Discharge Plan Patient Name: CARYN HOLCOMB Facility: [facility]:[place] : 1955 Planned Disposition: Home Anticipated Discharge Date: Discharge Date: 12/13/2018 Expected LOS: Initial Reviewer: [email or web address] Initial Review Date: 12/10/2018 Generated: 12/14/18 12:59 pm Comments DCP- Discharge Planning Updated by [email or web address]: Ruby Hunter on 12/13/18 9:[address] Patient Name: CARYN HOLCOMB Encounter No: [id number] : 1955 Primary Insurance: [employer] [facility] Anticipated DC Date: Planned Disposition: Home External Planned Provider: : DCP follow-up note: Patient and family in agreement with discharge plan. No changes to plan. Case management will follow and assist as needed. Ruby Hunter DCP- Discharge Planning Updated by [email or web address]: Kourtney Centeno on 12/11/18 7:[address] Patient Name: CARYN HOLCOMB Admission Status: Elective Accout number: [id number] Admission Date: 12-10-2018 : 1955 Admission Diagnosis: Attending: SILVESTRE FONG Current LOS: 1 Anticipated DC Date: Planned Disposition: Home Primary Insurance: [employer] [facility] Discharge Planning Comments: CM met with patient at bedside after explaining CM role and obtaining verbal consent. Patient lives at home with her where she is independent with her care and plans to return there upon discharge. Patient feels this would be a safe discharge. CM discussed availability / needs of home health and medical equipment. Patient denies any discharge needs at this time. Patient states she will have her family drive her home upon discharge. CM will continue to follow and assist as needed with discharge planning / needs. Principal Programmer: Kourtney Centeno DCPIA - Discharge Planning Initial Assessment Updated by [email or web address]: Kourtney Centeno on 12/11/18 8:53 pm * Is the patient Alert and Oriented? Yes * How many steps to enter\exit or inside your home? * PCP [facility] * [facility] * Preadmission Environment Home with Family * ADLs Independent * Equipment None * List name and contact numbers for known caregivers / representatives who currently or will assist patient after discharge: KURT HOLCOMB - [facility] - [phone] * Verbal permission to speak to the caregivers and representatives has been obtained from the patient. Yes * Community resources currently utilized None * Additional services required to return to the preadmission environment? No * Can the patient safely return to the preadmission environment? Yes * Has this patient been hospitalized within the prior 30 days at any hospital? Yes Last DP export: 12/13/18 9:17 a Patient Name: CARYN HOLCOMB Page [phone] at 1159 All edits/amendments must be made on the electronic document DICTATION DATE: 12/14/181158 STOCK COUNTER: CHACE 12/14/18 1159 RPT#: [id number] DC DATE:12/13/18 STATUS: DIS IN [facility] [address] [place] [address] END OF REPORT
== END 2018-12-13 11:30 | disposition home or self-care (01) | DRG 378 ==
LOC: D.M3 17:08 → OBSVTIME 17:08 → D.M3 17:08 → D.M2 18:42 → D.ICU 18:42 → D.M2 12-11 21:13
PROVIDERS: Internal Medicine Gastroenterology; ADMIT Family Medicine; ATTEND Family Medicine
PROC: 0DBN8ZZ Excision of Sigmoid Colon, Via Natural or Artificial Opening Endoscopic (ICD-10-PCS; 2018-12-11)
PROC: 0DBM8ZZ Excision of Descending Colon, Via Natural or Artificial Opening Endoscopic (ICD-10-PCS; 2018-12-11)
PROC: 0DBH8ZZ Excision of Cecum, Via Natural or Artificial Opening Endoscopic (ICD-10-PCS; principal; 2018-12-11 15:30)
DX: K31.811 Angiodysplasia of stomach and duodenum with bleeding (principal); K76.6 Portal hypertension; D64.9 Anemia, unspecified; I35.0 Nonrheumatic aortic (valve) stenosis; K70.30 Alcoholic cirrhosis of liver without ascites; F10.21 Alcohol dependence, in remission; E11.9 Type 2 diabetes mellitus without complications; I95.9 Hypotension, unspecified; K63.5 Polyp of colon; K57.90 Diverticulosis of intestine, part unspecified, without perforation or abscess without bleeding; K64.0 First degree hemorrhoids; D69.6 Thrombocytopenia, unspecified; F32.9 Major depressive disorder, single episode, unspecified; K31.89 Other diseases of stomach and duodenum

== ENCOUNTER 2018-12-18 10:05 | Outpatient (CLI) | payer BC ==
[~2018-12-18] VITALS: Ht 157.5 cm; Wt 83.2 kg
[~2018-12-18 10:05] MED LIST changes: +FERROUS SULFAT325 MG PO
[2018-12-18 10:40] VITALS: Ht 157.5 cm; Wt 83.2 kg
--- NOTE | 2018-12-18 15:18 | NUR ---
DC INSTRUCTIONS GIVEN TO PT/SPOUSE. STATE UNDERSTANDING. DC'D IV CATH FULLY INTACT.
== END 2018-12-18 15:22 | disposition home or self-care (01) ==
LOC: D.OPS 10:05
PROVIDERS: ATTEND Family Medicine
DX: K76.6 Portal hypertension (principal); K31.89 Other diseases of stomach and duodenum

== ENCOUNTER 2018-12-24 14:16 | Inpatient (IN) | payer BC ==
[~2018-12-24] VITALS: Ht 157.5 cm; Wt 85.3 kg
--- NOTE | 2018-12-24 15:15 | NUR ---
REC'D PT FROM DR RYAN OFFICE. AAOX4. PLESANT. "WEAK AND TIRED" NO S/S OF ACUTE DISTRESS. CL IN PLACE.
[2018-12-24 17:39] VITALS: BP 102/45; BMI 34.4
--- NOTE | 2018-12-24 19:45 | NUR ---
pt resting IN BED. NO S/S OF ACUTE DISTRESS. AT BEDSIDE.
--- NOTE | 2018-12-24 20:10 | NUR ---
AWAKE,ALERT, NO COMPLAINTS VOICED AT PRESENT TIME. IV TO RFA INTACT WITHOUT REDNESS OR EDEMA NOTED. 1ST UNIT PRBC STARTED WITH NO REACTIONS NOTED. CL IN REACH
[2018-12-24 21:53] VITALS: BP 100/43
--- NOTE | 2018-12-24 23:00 | NUR ---
FIRST UNIT PRBC COMPLETED WITH NO REACTIONS NOTED. SECOND UNIT STARTED.NO COMPLAINTS VOICED.
[2018-12-25 00:25] VITALS: BP 102/44
--- NOTE | 2018-12-25 03:43 | NUR ---
I have reviewed this patient and I concur with the Shift Assessment completed by the Licensed Practical Nurse today this shift.
[2018-12-25 05:16] VITALS: BP 124/54
[2018-12-25 06:03] LABS: BASOPHILS 0.3 % (0-2); EOSINOPHILS 1.9 % (0-7); HEMATOCRIT 28.5 % (36.0-48.0); HEMOGLOBIN 9.4 g/dL (12-16); IMMATURE GRANULOCYTES 0.7 % (0-5); LYMPHOCYTES 22.3 % (15-50); MCH 28.7 pg (26.0-34.0); MCV 86.9 fL (80.0-100.0); MEAN PLATELET VOLUME 11.6 fL (7.4-10.4); MONOCYTES 6.2 % (2-11); NEUTROPHILS 68.6 % (40-80); RBC 3.28 10x6/uL (4.00-5.40); RDW 16.7 % (11.5-14.5); WBC 6.8 10x3/uL (4.8-10.8)
[2018-12-25 06:09] LABS: APTT 29.6 SECONDS (22.8-39.4); INR 1.06 (0.85-1.17); PROTIME 13.3 SECONDS (11.6-15.0)
[2018-12-25 06:30] LABS: ALKALINE PHOSPHATASE 55 U/L (46-116); ALT (SGPT) 21 U/L (10-68); BILIRUBIN - TOTAL 0.92 mg/dL (0.2-1.3); CALC OSMOLALITY 285 mosm/kg (275-300); CALCIUM 8.9 mg/dL (8.5-10.1); CARBON DIOXIDE 23.5 mmol/L (21.0-32.0); CHLORIDE - SERUM 108 mmol/L (98-107); CREATININE - SERUM 0.8 mg/dL (0.6-1.3); GLUCOSE 123 mg/dL (74-106); POTASSIUM - SERUM 3.8 mmol/L (3.5-5.1); SODIUM 142 mmol/L (136-145); UREA NITROGEN 18 mg/dL (7-18); eGFR NON AFRICAN AMERICAN 76 mL/min (90-120)
[2018-12-25 06:48] LABS: PLATELET COUNT 136 10x3/uL (130-400)
--- NOTE | 2018-12-25 07:00 | NUR ---
TO GI LAB FOR PROCEDURE. NO DISTRESS NOTED. FAMILY AT BEDSIDE
--- NOTE | 2018-12-25 09:08 | NUR ---
PT RESTING IN BED. REQUESTING SOME LIQUIDS FOR BREAKFAST. DENIES ANY NEEDS. NO S/S OF ACUTE DISTRESS. CL IN PLACE.
[2018-12-25 12:52] VITALS: BP 102/51
[2018-12-25 13:07] VITALS: BMI 34.4
[2018-12-25 15:23] VITALS: Ht 157.5 cm; Wt 85.3 kg
--- NOTE | 2018-12-25 16:54 | NUR ---
IV RED SWOLLEN TO R ARM. DC IV WITH TIP INTACT. 22 G TO L WRIST. FLUSHED WELL. NO REDDNESS OR SWELLING NOTED. CL IN PLACE.
--- NOTE | 2018-12-25 17:58 | NUR ---
PT SITTING UP WATCHING NEWS. NO S/S OF ACUTE DISTRESS. CL IN PLACE.
[2018-12-25 18:00] VITALS: BP 112/58
--- NOTE | 2018-12-25 18:01 | NUR ---
PT RESTING IN BED. DENIES ANY NEEDS. NO S/S OF ACUTE DISTRESS. CL IN PLACE.
[2018-12-25 21:26] VITALS: BP 120/54
--- NOTE | 2018-12-25 22:18 | NUR ---
PT NAUSEA AND DRY-HEAVING. CALLED PHYSICIAN. GAVE ZOFRAN 4 MG IV PUSH PER TELEPHONE ORDER. FSBS 139 - NO INSULIN PER SS. PT TOLERATED SCHEDULED MEDS AFTER ZOFRAN GIVEN. PT REPORTED DARK BM'S. NO OTHER NEEDS. WILL CONTINUE TO MONITOR.
[2018-12-26] VITALS (8 sets, daily range): BP systolic 92–104; BP diastolic 44–70
[2018-12-26 06:23] LABS: BASOPHILS 0.4 % (0-2); EOSINOPHILS 2.1 % (0-7); HEMATOCRIT 24.1 % (36.0-48.0); HEMOGLOBIN 7.9 g/dL (12-16); IMMATURE GRANULOCYTES 0.2 % (0-5); LYMPHOCYTES 22.1 % (15-50); MCH 28.6 pg (26.0-34.0); MCHC 32.8 g/dL (31.0-37.0); MCV 87.3 fL (80.0-100.0); MEAN PLATELET VOLUME 11.1 fL (7.4-10.4); MONOCYTES 7.5 % (2-11); NEUTROPHILS 67.7 % (40-80); PLATELET COUNT 114 10x3/uL (130-400); RBC 2.76 10x6/uL (4.00-5.40); WBC 5.6 10x3/uL (4.8-10.8)
[2018-12-26 06:28] LABS: ALBUMIN 2.6 g/dL (3.4-5.0); ALKALINE PHOSPHATASE 49 U/L (46-116); ALT (SGPT) 19 U/L (10-68); BILIRUBIN - TOTAL 0.56 mg/dL (0.2-1.3); CALC OSMOLALITY 281 mosm/kg (275-300); CALCIUM 8.2 mg/dL (8.5-10.1); CARBON DIOXIDE 27.6 mmol/L (21.0-32.0); CHLORIDE - SERUM 111 mmol/L (98-107); CREATININE - SERUM 0.8 mg/dL (0.6-1.3); GLUCOSE 108 mg/dL (74-106); POTASSIUM - SERUM 3.8 mmol/L (3.5-5.1); PROTEIN - SERUM 5.1 g/dL (6.4-8.2); SODIUM 142 mmol/L (136-145); UREA NITROGEN 8 mg/dL (7-18); eGFR NON AFRICAN AMERICAN 76 mL/min (90-120)
--- NOTE | 2018-12-26 07:20 | HP ---
PATIENT: CARYN HOLCOMB MEDICAL RECORD: [id number] ACCOUNT: [id number] LOCATION:D.MS [address] : [birth year] ADMISSION DATE: 12/24/18 PCP: SILVESTRE FONG MD HISTORY AND PHYSICAL EXAMINATION REASON FOR ADMISSION: Recurrent gastrointestinal bleeding and anemia, symptomatic. HISTORY OF PRESENT ILLNESS: The patient is a 63-year-old female, who has been hospitalized several times for severe anemia due to upper GI blood loss. She has been diagnosed with portal hypertensive gastropathy. She was seen outpatient by Dr. Martinez. Consider iron infusions, her hemoglobin was 6 and she admitted to the hospital. She denies chest pain or shortness of breath only mild peripheral edema. Dr. Adrian has been consulted as well. He has recommended EGD in the morning and possible photocoagulation for this issue. PAST MEDICAL HISTORY: Portal hypertensive gastropathy upper GI bleed with anemia of iron deficiency type, history of alcoholism in remission, history of hepatic encephalopathy, alcoholic cirrhosis, diabetic neuropathy, carpal tunnel syndrome, moderate aortic stenosis, and diabetes mellitus. PAST SURGICAL HISTORY: Appendectomy, tonsillectomy, and right rotator cuff repair. FAMILY HISTORY: Father at 74 of colon cancer. Mother at 73 from malignant neoplasm of the brain from the lung. One sister alive with breast cancer. SOCIAL HISTORY: . Alcohol user for years now, not smoking. Lives with a very supportive . HOME MEDICATIONS: Protonix 40 mg b.i.d., gabapentin 300 mg at bedtime, Xifaxan 550 mg p.o. b.i.d., Carafate 1 gram p.o. t.i.d. with meals and metformin 1000 mg p.o. b.i.d. ALLERGIES: None mentioned. REVIEW OF SYSTEMS: CONSTITUTIONAL: Mild fatigue. No fever. HEENT: No recent visual change. CARDIAC: No chest pain, palpitations, shortness of breath on exertion. RESPIRATORY: No SOB or sputum production. GASTROINTESTINAL: No nausea or vomiting, has melanotic stools consistently. ENDOCRINE: Denies polyuria, polydipsia, heat or cold intolerance. NEUROLOGIC: No history of stroke, TIA, or vascular headaches. He has had hepatic encephalopathy, but currently is very clear minded on meds. PHYSICAL EXAMINATION: VITAL SIGNS: Temperature is 98, blood pressure 90/60, heart rate 80 and regular. Eyes are clear. Pupils are reactive. PELVIC: Palpebral conjunctivae are pale. NECK: No bruits or masses. CHEST: Clear without wheeze or rales. HEART: Regular rate with II/ aortic systolic murmur. ABDOMEN: Soft, nontender throughout. Bowel sounds are active. HISTORY AND PHYSICAL [id number] ZHANGCARYNEVAN ARMSTRONG RECTAL: Black and heme-positive stool. EXTREMITIES: Trace bipedal edema. LABORATORY DATA: Her hemoglobin is 6.7 and hematocrit of 21.2. White count is 7000, platelet count of 121,000, rest of labs are currently pending. ASSESSMENT: 1. Recurrent symptomatic anemia of gastrointestinal blood loss. 2. Portal hypertensive gastropathy. 3. Alcoholic cirrhosis. 4. Diabetes mellitus. PLAN: Transfuse tonight with Lasix in between units. Hematology and GI seen the patient. Further workup to follow. TRANSINT:[id number] Voice Confirmation ID: [id number] DOCUMENT ID: [id number] SILVESTRE FONG MD at 0720 CC: [id number] DICTATION DATE: 12/24/18 1723 RN INFORMATICS: 12/24/18 2220 ADM IN [facility] [address] [place] [address]
--- NOTE | 2018-12-26 07:45 | NUR ---
PATIENT ASLEEP. WAKES EASILY. CL IN REACH. NO NEEDS AT THIS TIME.
[2018-12-26 15:15] LABS: BASOPHILS 0.3 % (0-2); EOSINOPHILS 2.2 % (0-7); IMMATURE GRANULOCYTES 0.3 % (0-5); LYMPHOCYTES 21.1 % (15-50); MCH 29.1 pg (26.0-34.0); MCHC 33.1 g/dL (31.0-37.0); MCV 87.9 fL (80.0-100.0); MEAN PLATELET VOLUME 10.7 fL (7.4-10.4); MONOCYTES 6.7 % (2-11); NEUTROPHILS 69.4 % (40-80); PLATELET COUNT 121 10x3/uL (130-400); RDW 16.8 % (11.5-14.5); WBC 6.7 10x3/uL (4.8-10.8)
[2018-12-26 15:23] LABS: HEMATOCRIT 30.5 % (36.0-48.0); HEMOGLOBIN 10.1 g/dL (12-16); RBC 3.47 10x6/uL (4.00-5.40)
--- NOTE | 2018-12-26 22:20 | NUR ---
PT ALERT & ORIENTED. IRON INFUSION COMPLETE, SALINE LOCKED IV. GAVE SCHEDULED MEDS. FSBS 119 - NO INSULIN PER SS. NO OTHER NEEDS. WILL CONTINUE TO MONITOR.
[2018-12-27] VITALS: BP 90/39
[2018-12-27 04:00] VITALS: BP 84/40
[2018-12-27 05:40] LABS: BASOPHILS 0.3 % (0-2); EOSINOPHILS 2.9 % (0-7); HEMATOCRIT 27.7 % (36.0-48.0); HEMOGLOBIN 9.2 g/dL (12-16); IMMATURE GRANULOCYTES 0.5 % (0-5); LYMPHOCYTES 23.7 % (15-50); MCH 29.3 pg (26.0-34.0); MCHC 33.2 g/dL (31.0-37.0); MCV 88.2 fL (80.0-100.0); MEAN PLATELET VOLUME 11.1 fL (7.4-10.4); MONOCYTES 8.4 % (2-11); NEUTROPHILS 64.2 % (40-80); PLATELET COUNT 118 10x3/uL (130-400); RBC 3.14 10x6/uL (4.00-5.40); RDW 17.3 % (11.5-14.5); WBC 5.9 10x3/uL (4.8-10.8)
[2018-12-27 06:19] LABS: ALBUMIN 2.6 g/dL (3.4-5.0); ALKALINE PHOSPHATASE 54 U/L (46-116); BILIRUBIN - TOTAL 0.55 mg/dL (0.2-1.3); CALC OSMOLALITY 285 mosm/kg (275-300); CARBON DIOXIDE 22.2 mmol/L (21.0-32.0); CHLORIDE - SERUM 112 mmol/L (98-107); CREATININE - SERUM 0.7 mg/dL (0.6-1.3); GLUCOSE 109 mg/dL (74-106); POTASSIUM - SERUM 3.7 mmol/L (3.5-5.1); PROTEIN - SERUM 5.2 g/dL (6.4-8.2); SODIUM 144 mmol/L (136-145); UREA NITROGEN 6 mg/dL (7-18); eGFR NON AFRICAN AMERICAN 89 mL/min (90-120)
[2018-12-27 06:21] LABS: ALT (SGPT) 25 U/L (10-68)
[2018-12-27 08:47] VITALS: BP 100/43
[2018-12-27 12:45] VITALS: BP 104/49
--- NOTE | 2018-12-27 16:17 | NUR ---
FAMILY IN ROOM. PATIENT REQUESTED VANILLA PUDDING AND JELLO. THEY WERE PROVIDED WELL ICE. CL IN REACH NO FURTHER NEEDS AT THIS TIME.
[2018-12-27 16:38] VITALS: BP 116/52
[2018-12-27 19:39] VITALS: BP 96/39
--- NOTE | 2018-12-27 21:00 | NUR ---
PT LAYING IN BED A/O WITH NO SIGNS OF ACUTE DISTRESS. AT THE BEDSIDE. IV TO THE RT WRIST. SOME BRUSIING NOTED AT SITE, DENIES PAIN UPON FLUSHING AND PATENT. REFUSED INSULIN STATING THAT SHE FELT LIKE SHE DIDN'T NEED IT BECAUSE SHE HASN'T NEEDED TO BE COVERED ALL DAY. REPORTS SHARP PAIN IN ABDOMIN OCCATIONALLY BUT REFUSES PAIN MEDS. ENCOURAGED PT TO NOTIFY ME IF PAIN BECOME UNBEARABLE. DENIES OTHER NEEDS AT THIS TIME. CONTINUE WITH PLAN OF CARE.
[2018-12-28] VITALS: BP 88/37
--- NOTE | 2018-12-28 00:35 | NUR ---
PT RESTING IN BED. DENIES ANY LIGHTHEADEDNESS OR WEAKNESS. WILL CONTINUE TO MONITOR.
[2018-12-28 04:00] VITALS: BP 115/65
[2018-12-28 06:44] LABS: HEMATOCRIT 28.3 % (36.0-48.0); HEMOGLOBIN 9.2 g/dL (12-16); LYMPHOCYTES 22.3 % (15-50); MCH 29.4 pg (26.0-34.0); MCHC 32.5 g/dL (31.0-37.0); MEAN PLATELET VOLUME 11.2 fL (7.4-10.4); NEUTROPHILS 66.1 % (40-80); PLATELET COUNT 101 10x3/uL (130-400); RBC 3.13 10x6/uL (4.00-5.40); RDW 17.2 % (11.5-14.5); WBC 4.8 10x3/uL (4.8-10.8)
[2018-12-28 06:45] LABS: MCV 90.4 fL (80.0-100.0)
[2018-12-28 07:17] LABS: ALBUMIN 2.7 g/dL (3.4-5.0); ALKALINE PHOSPHATASE 59 U/L (46-116); ALT (SGPT) 27 U/L (10-68); BILIRUBIN - TOTAL 0.77 mg/dL (0.2-1.3); CALC OSMOLALITY 284 mosm/kg (275-300); CALCIUM 8.3 mg/dL (8.5-10.1); CARBON DIOXIDE 23.1 mmol/L (21.0-32.0); CHLORIDE - SERUM 110 mmol/L (98-107); CREATININE - SERUM 0.7 mg/dL (0.6-1.3); GLUCOSE 128 mg/dL (74-106); POTASSIUM - SERUM 3.4 mmol/L (3.5-5.1); PROTEIN - SERUM 5.4 g/dL (6.4-8.2); SODIUM 143 mmol/L (136-145); UREA NITROGEN 6 mg/dL (7-18); eGFR NON AFRICAN AMERICAN 89 mL/min (90-120)
--- NOTE | 2018-12-28 07:25 | NUR ---
PATIENT UP WASHING HANDS AND CLEANING OFF HER BEDSIDE TABLE. NO NEEDS AT THIS TIME. WILL CONTINUE TO MONITOR.
[2018-12-28 08:15] VITALS: BP 125/49
--- NOTE | 2018-12-28 10:48 | NUR ---
PATIENT IV REMOVED FROM RIGHT WRIST. DISCHARGE INSTRUCTIONS GIVEN. PATIENT AND VOICED UNDERSTANDING. REFUSED WHEELCHAIR DOWNSTAIRS.
== END 2018-12-28 10:49 | disposition home or self-care (01) | DRG 378 ==
LOC: D.MS 14:16
PROVIDERS: Internal Medicine Gastroenterology; Internal Medicine Hematology & Oncology; Specialist; ADMIT Family Medicine; ATTEND Family Medicine
PROC: 0W3P8ZZ Control Bleeding in Gastrointestinal Tract, Via Natural or Artificial Opening Endoscopic (ICD-10-PCS; principal; 2018-12-25 06:26)
DX: K92.2 Gastrointestinal hemorrhage, unspecified (principal); K76.6 Portal hypertension; I95.89 Other hypotension; K70.30 Alcoholic cirrhosis of liver without ascites; K31.89 Other diseases of stomach and duodenum; D50.0 Iron deficiency anemia secondary to blood loss (chronic); F10.21 Alcohol dependence, in remission; E11.40 Type 2 diabetes mellitus with diabetic neuropathy, unspecified; K92.1 Melena

== ENCOUNTER 2019-01-07 15:16 | Inpatient (IN) | payer BC ==
[~2019-01-07] VITALS: Ht 157.5 cm; Wt 80.7 kg
[2019-01-07 16:38] LABS: BASOPHILS 0.3 % (0-2); EOSINOPHILS 1.9 % (0-7); IMMATURE GRANULOCYTES 3.1 % (0-5); LYMPHOCYTES 22.2 % (15-50); MCH 30.7 pg (26.0-34.0); MCHC 32.4 g/dL (31.0-37.0); MCV 94.7 fL (80.0-100.0); MEAN PLATELET VOLUME 11.2 fL (7.4-10.4); MONOCYTES 6.9 % (2-11); NEUTROPHILS 65.6 % (40-80); PLATELET COUNT 87 10x3/uL (130-400); RDW 19.8 % (11.5-14.5); WBC 6.4 10x3/uL (4.8-10.8)
[2019-01-07 16:49] LABS: INR 1.13 (0.85-1.17)
[2019-01-07 16:51] LABS: CALC OSMOLALITY 282 mosm/kg (275-300); CALCIUM 8.5 mg/dL (8.5-10.1); CARBON DIOXIDE 23.3 mmol/L (21.0-32.0); CHLORIDE - SERUM 106 mmol/L (98-107); CREATININE - SERUM 0.8 mg/dL (0.6-1.3); GLUCOSE 124 mg/dL (74-106); POTASSIUM - SERUM 3.4 mmol/L (3.5-5.1); SODIUM 141 mmol/L (136-145); UREA NITROGEN 16 mg/dL (7-18); eGFR NON AFRICAN AMERICAN 76 mL/min (90-120)
[2019-01-07 17:09] LABS: HEMATOCRIT 17.9 % (36.0-48.0); HEMOGLOBIN 5.8 g/dL (12-16); RBC 1.89 10x6/uL (4.00-5.40)
[2019-01-07 17:24] VITALS: BP 104/44; BMI 32.6
[2019-01-07 17:48] LABS: PLATELET ESTIMATE DECREASED
--- NOTE | 2019-01-07 17:48 | NUR ---
REC'D PT AAOX4. "TIRED" PALE ATTEMPTED IV TO L WRIST WITH NO SUCESS. ANDRESSA JARRELLN SITED 20 G TO R HAND. FLUSHED WELL. NO S/S OF ACUTE DISTRESS. CL IN PLACE. CALLED LAB ABOUT BLOOD. BLOOD NOT READY.
--- NOTE | 2019-01-07 18:33 | NUR ---
INFUSING PRBC. NO S/S OF ACUTE DISTRESS. CL IN PLACE.
--- NOTE | 2019-01-07 20:00 | NUR ---
FIRST UNIT PRBC COMPLETED WITH NO REACTIONS NOTED. SECOND UNIT STARTED WITH NO S/S REACTIONS NOTED. WILL OBSERVE B/P.CL IN REACH. AT BEDSIDE.
[2019-01-08 01:11] VITALS: BP 112/44
--- NOTE | 2019-01-08 04:49 | NUR ---
I have reviewed this patient and I concur with the Shift Assessment completed by the Licensed Practical Nurse today this shift.
[2019-01-08 06:01] VITALS: BP 112/40
[2019-01-08 06:22] LABS: BASOPHILS 0.6 % (0-2); EOSINOPHILS 2.2 % (0-7); HEMATOCRIT 20.6 % (36.0-48.0); IMMATURE GRANULOCYTES 4.1 % (0-5); LYMPHOCYTES 29.1 % (15-50); MCH 30.6 pg (26.0-34.0); MEAN PLATELET VOLUME 10.5 fL (7.4-10.4); MONOCYTES 6.3 % (2-11); NEUTROPHILS 57.7 % (40-80); PLATELET COUNT 96 10x3/uL (130-400); RDW 20.2 % (11.5-14.5); WBC 7.1 10x3/uL (4.8-10.8)
[2019-01-08 06:40] LABS: RBC 2.29 10x6/uL (4.00-5.40)
--- NOTE | 2019-01-08 08:00 | NUR ---
PT RESTING IN BED. NO S/S OF ACUTE DISTRESS. CL IN PLACE.
[2019-01-08 08:43] VITALS: BP 104/43
[2019-01-08 12:42] VITALS: BMI 32.5
[2019-01-08 13:12] VITALS: BP 106/46
--- NOTE | 2019-01-08 13:25 | HP ---
PATIENT: CARYN HOLCOMB MEDICAL RECORD: [id number] ACCOUNT: [id number] LOCATION:D.MS [address] : [birth year] ADMISSION DATE: 01/07/19 PCP: SILVESTRE FONG MD HISTORY AND PHYSICAL EXAMINATION REASON FOR ADMISSION: Anemia, hematemesis, and melena. HISTORY OF PRESENT ILLNESS: The patient is a 63-year-old female who was discharged from hospital last week for recurrent upper GI bleeding and anemia from portal hypertensive gastropathy. She states she vomited a slight amount of dark blood 3 days before admission, did not tell her . She had dark stools for the rest of the week. She is due to see Dr. Martinez tomorrow but came to the office today after telling my nurse these symptoms. Her hemoglobin was 6.4, so she is being directly admitted to the hospital for transfusion and observation and potential EGD by Dr. Adrian in the morning. Just a little lightheaded, has had no chest pain. PAST MEDICAL HISTORY: Portal hypertensive gastropathy with upper GI bleeding recurrent, iron deficiency anemia, history of alcoholism - in remission, hepatic encephalopathy - currently stable. Alcoholic cirrhosis, diabetic neuropathy, AODM, carpal tunnel syndrome, moderate aortic stenosis. PAST SURGICAL HISTORY: Tonsillectomy, appendectomy, right rotator cuff repair. She had photocoagulation of her gastric mucosa on last visit. FAMILY HISTORY: Mother at 73 from malignant neoplasm of the lung, metastatic to the brain. Father at 74 of colon cancer. One sister alive with breast cancer. SOCIAL HISTORY: , heavy alcohol user for years, none currently; not a smoker. CURRENT MEDICATIONS: Protonix 40 mg b.i.d., gabapentin 300 mg at bedtime, Xifaxan 550 mg p.o. b.i.d., Carafate 1 gram p.o. t.i.d. with meals, metformin 1000 mg p.o. b.i.d., ferrous sulfate 1 daily. She receives IV iron per Dr. Martinez. ALLERGIES: None. REVIEW OF SYSTEMS: CONSTITUTIONAL: Mild fatigue. No fever. HEENT: No recent visual change, sinus congestion, headache. RESPIRATORY: No shortness of breath on exertion or at rest. No cough. CARDIAC: Denies palpitations, chest pain or edema. GASTROINTESTINAL: Nausea with recent hematochezia, minimal amount, and then melena since that time daily. Denies abdominal pain. GENITOURINARY: No dysuria. GYNECOLOGIC: No vaginal bleeding. ENDOCRINE: Denies polyuria, polydipsia, heat or cold intolerance. NEUROLOGIC: No history of stroke, TIA, or vascular headaches. INTEGUMENT: No rash or itching. PSYCHIATRIC: Denies depressed mood. PHYSICAL EXAMINATION: VITAL SIGNS: Blood pressure is 100/60, heart rate of 100 and regular, HISTORY AND PHYSICAL [id number] ZHANG,CARYN PATTI respirations are 18. GENERAL: The patient is alert and oriented and very pale appearing. Eyes are clear with pale palpebral conjunctivae. NECK: Supple. CHEST: Clear throughout. HEART: Tachycardic with a II/ aortic systolic murmur. No diastolic rumble. ABDOMEN: Soft, obese, and nontender throughout. Bowel sounds are active. SKIN: Pale. EXTREMITIES: No gross edema. NEUROLOGICAL: Intact. LABORATORY DATA: Hemoglobin 6.4, hematocrit 20.2, platelet count 105,000 with normal diff. BUN and creatinine are 15 and 1.06 respectively. Blood sugar random is 155. ASSESSMENT: 1. Recurrent upper gastrointestinal bleeding with symptomatic anemia. 2. Moderate aortic stenosis. 3. Portal hypertension with portal hypertensive gastropathy. 4. Recurrent anemia. 5. Type 2 diabetes. 6. Remote alcoholism. PLAN: The patient is going to be admitted to the monitored floor for transfusion tonight. Should her heart rate increase, blood pressure decrease, her hemoglobin drops, will be moved to the ICU. Dr. Adrian will be consulted and n.p.o. after midnight. TRANSINT:[id number] Voice Confirmation ID: [id number] DOCUMENT ID: [id number] SILVESTRE FONG MD at 1325 CC: [id number] DICTATION DATE: 01/07/19 165 NATURAL RESOURCES MANAGER: 01/07/192026 ADM IN [facility] [address] [place] [address]
--- NOTE | 2019-01-08 18:38 | NUR ---
PT RESTING IN BED. SIMETHICONE GIVEN FOR GAS PAIN PER MD ORDER. DENIES PAIN AT THIS TIME. EATING CLD AND ESTHER WELL. NO S/S OF ACUTE DISTRESS. CL IN PLACE.
[2019-01-08 21:08] VITALS: BP 106/49
[2019-01-09 00:30] VITALS: BP 108/45
[2019-01-09 05:04] VITALS: BP 110/58
[2019-01-09 05:15] LABS: BASOPHILS 0.4 % (0-2); EOSINOPHILS 3.3 % (0-7); IMMATURE GRANULOCYTES 2.1 % (0-5); LYMPHOCYTES 26.1 % (15-50); MCH 30.4 pg (26.0-34.0); MCHC 32.6 g/dL (31.0-37.0); MONOCYTES 8.8 % (2-11); NEUTROPHILS 59.3 % (40-80); PLATELET COUNT 99 10x3/uL (130-400)
[2019-01-09 05:19] LABS: HEMATOCRIT 28.2 % (36.0-48.0); HEMOGLOBIN 9.2 g/dL (12-16); MCV 93.1 fL (80.0-100.0); RBC 3.03 10x6/uL (4.00-5.40); WBC 4.9 10x3/uL (4.8-10.8)
[2019-01-09 06:00] LABS: CALC OSMOLALITY 293 mosm/kg (275-300); CHLORIDE - SERUM 113 mmol/L (98-107); CREATININE - SERUM 0.6 mg/dL (0.6-1.3); GLUCOSE 97 mg/dL (74-106); POTASSIUM - SERUM 3.7 mmol/L (3.5-5.1); SODIUM 149 mmol/L (136-145); eGFR NON AFRICAN AMERICAN > 90 mL/min (90-120)
[2019-01-09 06:07] LABS: CALCIUM 7.6 mg/dL (8.5-10.1)
[2019-01-09 06:12] LABS: UREA NITROGEN 8 mg/dL (7-18)
--- NOTE | 2019-01-09 07:20 | NUR ---
PT RESTING IN BED WITH EYES CLOSED. OPENS SPONTANEOUSLY STAFF ENTERS ROOM. NO ACUTE DISTRESS NOTED. DENIES PAIN AT THIS TIME. IV TO RIGHT HAND WITH NS @ 100ML/HR INFUSING VIA PUMP. SITE WITHOUT REDNESS OR EDEMA. PT DENIES FURTHER NEEDS AT THIS TIME. CL WITHIN REACH. ENCOURAGED TO CALL WITH NEEDS. CONTINUE POC
[2019-01-09 12:56] VITALS: BP 102/41
[2019-01-09 17:07] VITALS: BP 128/62
[2019-01-09 20:00] VITALS: BP 106/56
--- NOTE | 2019-01-09 21:30 | NUR ---
RIGHT HAND IV TENDER AND NO LONGER PATENT. RESITED 20 G TO LEFT FOREARM BY NARAYAN AGUILERA. RESUMED IV FLUIDS. SMALL BM, NO DARK STOOL. COMPLETE ASSESSMENT PER FLOW-SHEET. NO OTHER NEEDS. WILL CONTINUE TO MONITOR.
[2019-01-10 04:00] VITALS: BP 101/50
[2019-01-10 06:07] LABS: BASOPHILS 0.2 % (0-2); EOSINOPHILS 3.1 % (0-7); HEMATOCRIT 26.5 % (36.0-48.0); HEMOGLOBIN 8.6 g/dL (12-16); IMMATURE GRANULOCYTES 0.7 % (0-5); LYMPHOCYTES 29.3 % (15-50); MCH 30.3 pg (26.0-34.0); MCHC 32.5 g/dL (31.0-37.0); MCV 93.3 fL (80.0-100.0); MONOCYTES 8.6 % (2-11); NEUTROPHILS 58.1 % (40-80); PLATELET COUNT 85 10x3/uL (130-400); RBC 2.84 10x6/uL (4.00-5.40); RDW 19.6 % (11.5-14.5); WBC 4.2 10x3/uL (4.8-10.8)
--- NOTE | 2019-01-10 07:25 | NUR ---
ALERT AND ORIENTED, RESTING IN BED. NO C/O PAIN. NO S/S OF ACUTE DISTRESS NOTED. PT STATED SHE WANTS REGULAR FOOD THIS AM. REFUSED SCDS. IV TO LEFT FOREARM, NS INFUSING @ 100ML/HR. HEART MURMUR. PT DENIES ANY NEEDS AT THIS TIME. CALL LIGHT IN REACH. WILL CONTINUE TO MONITOR.
[2019-01-10 07:43] LABS: PLATELET ESTIMATE DECREASED
[2019-01-10 09:44] VITALS: Ht 157.5 cm; Wt 80.7 kg
[2019-01-10 09:47] VITALS: BP 118/58
--- NOTE | 2019-01-10 11:05 | NUR ---
STARTED BLOOD TRANSFUSION. VITALS STABLE.
--- NOTE | 2019-01-10 12:03 | NUR ---
rec'd pt lying in bed resp even and unlabored pt denies needs at this time will continue to monitor
[2019-01-10 13:39] VITALS: BP 116/51
[2019-01-10 17:00] VITALS: BP 110/50
--- NOTE | 2019-01-10 18:26 | NUR ---
ALERT AND ORIENTED, RESTING IN BED. NO C/O PAIN. NO S/S OF ACUTE DISTRESS NOTED. CALL LIGHT IN REACH. PT DENIES ANY NEEDS AT THIS TIME.
[2019-01-10 20:45] VITALS: BP 120/53
--- NOTE | 2019-01-10 20:50 | NUR ---
PT ALERT & ORIENTED. C/O RUQ PAIN. GAVE MYLICON DROPS FOR GAS. NO OTHER NEEDS. WILL REASSESS AND CONTINUE TO MONITOR.
[2019-01-11 00:46] VITALS: BP 114/62
[2019-01-11 04:55] LABS: BASOPHILS 0.4 % (0-2); EOSINOPHILS 3.3 % (0-7); HEMATOCRIT 30.8 % (36.0-48.0); HEMOGLOBIN 9.9 g/dL (12-16); IMMATURE GRANULOCYTES 0.4 % (0-5); MCH 29.6 pg (26.0-34.0); MCHC 32.1 g/dL (31.0-37.0); MCV 91.9 fL (80.0-100.0); MONOCYTES 8.3 % (2-11); NEUTROPHILS 60.6 % (40-80); PLATELET COUNT 90 10x3/uL (130-400); RBC 3.35 10x6/uL (4.00-5.40); RDW 20.6 % (11.5-14.5); WBC 4.5 10x3/uL (4.8-10.8)
[2019-01-11 05:10] VITALS: BP 101/48
--- NOTE | 2019-01-11 07:05 | NUR ---
ALERT AND ORIENTED, RESTING IN BED. C/O LOWER BACK PAIN. NO S/S OF ACUTE DISTRESS NOTED. REFUSED SCDS. IV TO LEFT FOREARM, SL. SITE PATENT WITHOUT REDNESS OR SWELLING. PT DENIES ANY NEEDS AT THIS TIME. CALL LIGHT IN REACH. WILL CONTINUE TO MONITOR.
[2019-01-11 09:36] VITALS: BP 116/61
--- NOTE | 2019-01-11 11:29 | NUR ---
DISCHARGED PATIENT HOME VIA WHEELCHAIR WITH SPOUSE ACCOMPANIED BY STAFF. DISCONTINUED IV, CATHETER TIP INTACT. WENT OVER DISCHARGE INSTRUCTIONS WITH PATIENT, PATIENT VERBALIZED UNDERSTANDING. PT DENIES ANY FURTHER NEEDS.
== END 2019-01-11 11:47 | disposition home or self-care (01) | DRG 300 ==
LOC: D.MS 15:16 → OBSVTIME 15:16 → D.MS 15:16
PROVIDERS: Internal Medicine Gastroenterology; ADMIT Family Medicine; ATTEND Family Medicine
PROC: 0W3P8ZZ Control Bleeding in Gastrointestinal Tract, Via Natural or Artificial Opening Endoscopic (ICD-10-PCS; principal; 2019-01-08 14:59)
DX: I86.4 Gastric varices (principal); K92.2 Gastrointestinal hemorrhage, unspecified; K76.6 Portal hypertension; K31.89 Other diseases of stomach and duodenum; D50.0 Iron deficiency anemia secondary to blood loss (chronic); I35.0 Nonrheumatic aortic (valve) stenosis; E11.40 Type 2 diabetes mellitus with diabetic neuropathy, unspecified; I95.89 Other hypotension; K70.30 Alcoholic cirrhosis of liver without ascites; K70.10 Alcoholic hepatitis without ascites; K72.90 Hepatic failure, unspecified without coma

== ENCOUNTER 2019-01-21 08:35 | Outpatient (CLI) | payer BC ==
[~2019-01-21] VITALS: Ht 157.5 cm; Wt 82.3 kg
[2019-01-21 09:35] VITALS: BP 102/33; Ht 157.5 cm; Wt 82.3 kg
== END 2019-01-21 12:55 | disposition home or self-care (01) ==
LOC: D.OPS 08:35
PROVIDERS: ATTEND Family Medicine
DX: K92.2 Gastrointestinal hemorrhage, unspecified (principal); D64.9 Anemia, unspecified

== ENCOUNTER 2019-01-26 10:54 | Day surgery (SDC) | payer BC ==
[~2019-01-26] VITALS: Ht 157.5 cm; Wt 82.3 kg
[2019-01-26 11:20] LABS: HEMOGLOBIN 8.3 g/dL (12-16); MCH 30.9 pg (26.0-34.0); MCHC 31.9 g/dL (31.0-37.0); MCV 96.7 fL (80.0-100.0); MEAN PLATELET VOLUME 10.6 fL (7.4-10.4); RBC 2.69 10x6/uL (4.00-5.40); WBC 3.9 10x3/uL (4.8-10.8)
[2019-01-26 11:28] LABS: CALC OSMOLALITY 286 mosm/kg (275-300); CALCIUM 8.8 mg/dL (8.5-10.1); CARBON DIOXIDE 28.6 mmol/L (21.0-32.0); CHLORIDE - SERUM 108 mmol/L (98-107); CREATININE - SERUM 0.8 mg/dL (0.6-1.3); GLUCOSE 144 mg/dL (74-106); POTASSIUM - SERUM 3.9 mmol/L (3.5-5.1); SODIUM 143 mmol/L (136-145); UREA NITROGEN 10 mg/dL (7-18); eGFR NON AFRICAN AMERICAN 76 mL/min (90-120)
[2019-01-26 11:58] VITALS: BP 88/44; Ht 157.5 cm; Wt 82.3 kg
--- NOTE | 2019-01-26 15:37 | NUR ---
1435 PT C/O HEADACHE. TYLENOL ORDERED PER DR FINCH. 1440 PERMIT FOR BLOOD CONSENT SIGNED PER PT'S BECAUSE PT HAD RECEIVED PROPOFOL DURING PROCEDURE. 1510 TYPE AND CROSS DRAWN AND SENT TO LAB PER EMERSON JIMENEZ RN
--- NOTE | 2019-01-26 16:00 | NUR ---
PT RESTING COMFOTABLY AT THIS TIME, NAD NOTED. WILL CONTINUE TO MONITOR.
--- NOTE | 2019-01-26 20:23 | NUR ---
1955 SECOND UNIT OF PRBC FINISHED AND IV REMOVED. PRESSURE HELD AND DRESSING APPLIED. CATHETER INTACT. NO BLOOD REACTIONS POST TRANSFUSION AND POST EGD INSTRUCTIONS GIVEN.
--- NOTE | 2019-01-28 09:54 | OP ---
PATIENT NAME: CARYN HOLCOMB MEDICAL RECORD: [id number] :53 LOCATION:[facility] ADMISSION DATE: SURGEON: RKISS FINCH DO DATE OF OPERATION: 01/26/2019 PROCEDURE: EGD with hemostasis utilizing argon plasma coagulation. INDICATION: Anemia in the setting of gastric antral vascular ectasia (GAVE). SCOPE: Olympus video gastroscope. MEDICATIONS: Propofol 450 mg IV per anesthesia. ESTIMATED BLOOD LOSS: Minimal. COMPLICATIONS: None immediate. FINDINGS: Informed consent was given. The patient was made comfortable and placed on her left side. The endoscope was advanced under direct visualization through the mouth to the second and third portion of the duodenum with ease. The esophagus appeared normal. At the GE junction, there was evidence of LA class A reflux-induced esophagitis. In the cardiac region of the stomach, there are some ectasias present which are nonbleeding. The endoscope was advanced beyond the GE junction into the stomach and retroflexed to view the cardia and fundus. There were no varices visualized. The endoscope was advanced down to the antrum and prepyloric area where the previously identified gastric antral vascular ectasias were encountered. There was no bleeding visualized on today's examination, but the ectasias are still present. They appear to be inspecting engineer and of less severity. The endoscope was advanced beyond this site into the duodenum, which appeared normal to the third portion. The endoscope was then withdrawn back into the stomach and argon plasma coagulation was applied to the antral vascular ectasias. The maneuver was successful. The endoscope was withdrawn from the patient. The patient tolerated the procedure well and there were no complications. IMPRESSION: 1. LA class A reflux-induced esophagitis and some scattered ectasias located in the cardiac region of the stomach and at the gastroesophageal junction. 2. Gastric antral vascular ectasia and portal hypertensive gastropathy, which have caused persistent anemia and recurrent gastrointestinal bleeding, status post argon plasma coagulation. PLAN AND RECOMMENDATIONS: 1. Discharge home when recovery parameters are met. 2. We will transfuse 2 units packed red blood cells prior to discharge home today. 3. Continue current diet and continue current medications. 4. We will anticipate a repeat EGD with APC in 3-4 weeks' time. TRANSINT:[id number] Voice Confirmation ID: [id number] DOCUMENT ID: [id number] OPERATIVE REPORT [id number] CARYN HOLCOMB NATHAN A DO at 0954 CC: [id number] DICTATION DATE: 01/26/19 1423 CLIP BOLTER AND WRAPPER: 01/26/19 1525 [facility] 01/26/19 [facility] [address] [place] [address]
== END 2019-01-26 20:24 | disposition home or self-care (01) ==
LOC: D.OPS 10:54
PROVIDERS: Anesthesiology; ATTEND Internal Medicine Gastroenterology
DX: K31.811 Angiodysplasia of stomach and duodenum with bleeding (principal); D64.9 Anemia, unspecified; K21.0 Gastro-esophageal reflux disease with esophagitis; K76.6 Portal hypertension; K31.89 Other diseases of stomach and duodenum

== ENCOUNTER 2019-03-18 08:40 | Outpatient (CLI) | payer BC ==
[~2019-03-18] VITALS: Ht 157.5 cm; Wt 80.0 kg
[2019-03-18 09:22] VITALS: BP 103/43; Ht 157.5 cm; Wt 80.0 kg
--- NOTE | 2019-03-18 14:14 | NUR ---
1330 LAB HERE TO DRAW BLOOD TO RIGHT ARM. [address] FONG OFFICE. SPOKE WITH KAREN AND ORDERS GIVEN.
--- NOTE | 2019-03-18 15:51 | NUR ---
1550 REPORT FROM AUSTIN GANDHI RN. ROOM CHECK PT ATE 50% REG DIET, DENIES PROBLEMS. PT. RECEIVING 3RD UNIT BLOOD TRANSFUSING AT 250CC HR. DENIES PROBLEMS, SPOUSE AT SIDE.
--- NOTE | 2019-03-18 16:53 | NUR ---
1630 4TH UNIT BLOOD CHECKED AT BEDSIDE BY THIS NURSE AND AUSTIN GANDHI RN, NUMBERS CORRECT. PT. DENIES PROBLEMS WITH TRANSFUSION. STATES HAS BEEN UP TO BR TO VOID. SPOUSE AT SIDE.
--- NOTE | 2019-03-18 16:54 | NUR ---
1650 DR. FINCH ROUNDS ON PT. 4TH UNIT BLOOD STARTED AT 50/CC/HR. BRANDONIES PROBLLKAVON.
--- NOTE | 2019-03-18 17:11 | NUR ---
1705 VITAL SIGNS GOOD, RATE INCREASED TO 250/CC/HR. DECLINED OFFER OF FOOD. SPOUSE AT SIDE. IV SITE PATENT.
--- NOTE | 2019-03-18 17:46 | NUR ---
6496 ROOM CHECK, BLOOD INFUSING WELL, PT. PLAYING ON HER PHONE, SPOUSE AT SIDE WATCHING TV. DENIES PROBLEMS.
[2019-03-18 19:11] LABS: HEMATOCRIT 30.2 % (36.0-48.0); HEMOGLOBIN 10.1 g/dL (12-16)
--- NOTE | 2019-03-18 19:14 | NUR ---
1913 POST LAB RESULTS RECEIVED, DR. WHITING PUBLIC SERVICES LIBRARIAN, PAGED.
--- NOTE | 2019-03-18 19:25 | NUR ---
1921 DR. WHITING RETURNED CALL LAB RESULTS GIVEN, OKAYS RELEASE. IV DC'D WITH CATH INTACT RELEASED IN , SPOUSE UNION CONTRACT REPRESENTATIVE HOME. DENIES PROBLEMS.
== END 2019-03-18 19:27 | disposition home or self-care (01) ==
LOC: D.OPS 08:40
PROVIDERS: ATTEND Family Medicine
DX: K92.2 Gastrointestinal hemorrhage, unspecified (principal); D64.9 Anemia, unspecified

== ENCOUNTER 2019-03-30 05:21 | Day surgery (SDC) | payer BC ==
[~2019-03-30] VITALS: Ht 157.5 cm; Wt 81.8 kg
[2019-03-30 05:52] LABS: MCHC 31.4 g/dL (31.0-37.0); MCV 92.5 fL (80.0-100.0); MEAN PLATELET VOLUME 10.3 fL (7.4-10.4); RDW 16.5 % (11.5-14.5); WBC 3.8 10x3/uL (4.8-10.8)
[2019-03-30 06:06] LABS: HEMATOCRIT 18.5 % (36.0-48.0); HEMOGLOBIN 5.8 g/dL (12-16)
[2019-03-30 06:29] LABS: CALC OSMOLALITY 292 mosm/kg (275-300); CALCIUM 8.6 mg/dL (8.5-10.1); CARBON DIOXIDE 24.9 mmol/L (21.0-32.0); CHLORIDE - SERUM 108 mmol/L (98-107); CREATININE - SERUM 0.8 mg/dL (0.6-1.3); POTASSIUM - SERUM 3.8 mmol/L (3.5-5.1); SODIUM 142 mmol/L (136-145); UREA NITROGEN 14 mg/dL (7-18); eGFR NON AFRICAN AMERICAN 76 mL/min (90-120)
[2019-03-30 06:42] VITALS: BP 100/38; Ht 157.5 cm; Wt 81.8 kg
[2019-03-30 06:46] LABS: GLUCOSE 262 mg/dL (74-106)
--- NOTE | 2019-03-30 10:01 | NUR ---
1001 SUMMARY/CRITICAL LABS WERE CALLED TO OPS AND THEN GIVEN TO DR FINCH. ORDERS FOR 3 UNITS OF PRBCS RECEIVED. PT TOLERATED FIRST UNIT OF PRBC'S WITHOUT ANY REACTION. SECOND UNIT OF PRBC'S CURRENTLY INFUSING AND TOLERATING WITHOUT ANY ALLERGIC REACTIONS NOTED.
--- NOTE | 2019-03-30 10:15 | NUR ---
1012 IV STARTED IN LEFT WRIST WITH 22G ANGIOCATH AND RUNNING NS TKO. IV SITE STARTED FOR DEDICATION OF ANESTHESIS INFUSION IN GI LAB.
--- NOTE | 2019-03-30 10:40 | NUR ---
1036 PT TO GI LAB VIA STRETCHER FOR EGD.
--- NOTE | 2019-03-30 13:44 | NUR ---
1344 BLOOD DRAWN FOR POST TRANSFUSION HEMATOCRIT AND HEMOGLOBIN. PT TOLERATED 3 UNITS OF PRBCS WITH NO C/O ITCHING,SOB OR CHEST PAIN. PT STATES THAT SHE FEELS FINE.
[2019-03-30 13:55] LABS: HEMATOCRIT 25.7 % (36.0-48.0); HEMOGLOBIN 8.4 g/dL (12-16)
--- NOTE | 2019-03-30 16:15 | NUR ---
1408 HCT 25.7 AND HGB 8.[address] FINCH. HE WANTS PT TO FOLLOW UP WITH DR FONG TO HAVE HGB MONITORED. DR FINCH STATES PT CAN BE DISCHARGED HOME. 1422 RIGHT HAND IV AND LEFT WRIST IV'S HAVE BOTH BEEN DC'D. CATHETER TIPS INTACT AT BOTH SITES. PRESSURE HELD AT EACH SITE AND BOTH AREAS DRESSED WTIH A BANDAID. PT HAS BEEN GIVEN DISCHARGE INSTRUCTIONS AND VOICES UNDERSTANDING OF POST TRANSFUSION INSTRUCTIONS WELL F/U WITH DR FINCH FOR REPEAT EGD AND TO MONITOR HGB WITH DR FONG.
--- NOTE | 2019-03-31 11:06 | OP ---
PATIENT NAME: CARYN HOLCOMB MEDICAL RECORD: [id number] :53 LOCATION:[facility] ADMISSION DATE: SURGEON: KRISS FINCH DO DATE OF OPERATION: 03/30/2019 PROCEDURE: EGD with hemostasis using argon plasma coagulation. INDICATIONS FOR PROCEDURE: Anemia, melena, and GI bleed. SCOPE: Olympus video gastroscope. MEDICATIONS: Propofol 300 mg IV per anesthesia. ESTIMATED BLOOD LOSS: Less than 3 mL. COMPLICATIONS: None immediate. FINDINGS: Informed consent was given. The patient was made comfortable with the above medication and placed on her left side. The endoscope was advanced under direct visualization through the mouth to the duodenal bulb with ease. There was some evidence of mild reflux esophagitis at the GE junction. The duodenum appeared normal. In the stomach, the previously identified gastric antral vascular ectasia was again seen. There was some bleeding from a very small ulceration in the prepyloric region. The argon plasma coagulation probe was placed through the endoscope and using a current of 30-35, coagulation was performed on visible areas of ectasias as well as the visualized bleeding site. The maneuver was successful and hemostasis was achieved adequately. The endoscope was then withdrawn from the patient. The patient tolerated the procedure well and there were no complications. IMPRESSION: Gastric antral vascular ectasia, status post argon plasma coagulation. PLAN AND RECOMMENDATIONS: 1. Discharge home when recovery parameters are met. 2. Follow up lab within 1 week. 3. Repeat EGD with APC in 3-4 weeks. 4. If we do not appear to be in eradicating the ectasias, we may need to consider an antrectomy/surgical consultation. TRANSINT:[id number] Voice Confirmation ID: [id number] DOCUMENT ID: [id number] KRISS FINCH DO at 1106 CC: [id number] DICTATION DATE: 03/30/19 1118 COOLING TOWER OPERATOR: 03/30/19 2144 [facility] 03/30/[address] [address]
== END 2019-03-30 14:40 | disposition home or self-care (01) ==
LOC: D.OPS 05:21
PROVIDERS: Anesthesiology; ATTEND Internal Medicine Gastroenterology
DX: D64.9 Anemia, unspecified (principal); K92.1 Melena; K92.2 Gastrointestinal hemorrhage, unspecified

== ENCOUNTER 2019-04-20 05:55 | Day surgery (SDC) | payer BC ==
[~2019-04-20] VITALS: Ht 157.5 cm; Wt 79.1 kg
[2019-04-20 06:24] LABS: MCH 27.6 pg (26.0-34.0); MCHC 31.1 g/dL (31.0-37.0); MCV 88.9 fL (80.0-100.0); MEAN PLATELET VOLUME 10.5 fL (7.4-10.4); PLATELET COUNT 86 10x3/uL (130-400); RBC 2.17 10x6/uL (4.00-5.40); RDW 15.1 % (11.5-14.5); WBC 3.5 10x3/uL (4.8-10.8)
[2019-04-20 06:40] LABS: CALC OSMOLALITY 281 mosm/kg (275-300); CALCIUM 8.5 mg/dL (8.5-10.1); CARBON DIOXIDE 25.1 mmol/L (21.0-32.0); CHLORIDE - SERUM 107 mmol/L (98-107); CREATININE - SERUM 0.8 mg/dL (0.6-1.3); POTASSIUM - SERUM 4.1 mmol/L (3.5-5.1); SODIUM 142 mmol/L (136-145); UREA NITROGEN 10 mg/dL (7-18); eGFR NON AFRICAN AMERICAN 76 mL/min (90-120)
[2019-04-20 06:43] LABS: GLUCOSE 104 mg/dL (74-106)
[2019-04-20 06:48] LABS: HEMATOCRIT 19.3 % (36.0-48.0)
[2019-04-20 06:49] VITALS: BP 96/42; Ht 157.5 cm; Wt 79.1 kg
--- NOTE | 2019-04-20 09:19 | NUR ---
0907 FIRST UNIT OF PRBC'S STARTED. PT INSTRUCTED TO NOTIFY NURSE OF ANY CP/SOB/ITCHING/HIVES. PT STATES SHE HAS NOT HAD ANY REACTIONS IN THE PAST. DR FINCH ORDERED A FERRITIN LEVEL. LAB NOTIFIED AND THEY WILL RUN THIS ON BLOOD ALREADY DRAWN ON PT.
--- NOTE | 2019-04-20 16:13 | NUR ---
1530 PT HAS TOLERATED 3 UNITS OF PRBC'S. DENIES CP,SOB,ITCHING OR HIVES. PT UNDERSTANDS POST TRANSFUSION INSTRUCTIONS. 1535 IV DC'D. CATHETER TIP INTACT. BLEEDING FOR A LONG TIME WITH PRESSURE HELD UNTIL BLEEDING CEASED. BANDAID APPLIED. PLATELET COUNT IS LOW AND GAVE THIS INFORMATION TO PT AND HER TO DISCUSS WITH SANGITA FONG AND CONNOR. THEY WILL GIVE THE DOCTORS HER FERRITIN LEVEL THAT WAS 14 TODAY AND BE ADVISED ON TREATMENT FOR THIS. 1549 PT STARTED GETTING NAUSEATED AFTER LEAVING ROOM WHILE IN WC. PT DID NOT VOMIT. HAS EMESIS BASIN IN HAND AND A COOL RAG TO HER NECK. B/P STABLE AT 132/59. PULSE 68. 1552 CHECKED BLOOD SUGAR WHICH WAS 110. PT STATES SHE FEELS BETTER AND NAUSEA HAS CEASED. SHE STATES SHE IS READY TO GO HOME.
--- NOTE | 2019-04-21 07:49 | OP ---
PATIENT NAME: CARYN HOLCOMB MEDICAL RECORD: [id number] :54 [facility]ATION:[facility] ADMISSION DATE: SURGEON: KRISS FINCH DO DATE OF OPERATION: 04/20/2019 PROCEDURE: EGD with argon plasma coagulation for hemostasis regarding GAVE. SCOPE: Olympus video gastroscope. MEDICATIONS: Propofol 550 mg IV per anesthesia. ESTIMATED BLOOD LOSS: Minimal. COMPLICATIONS: None immediate. FINDINGS: Informed consent was given. The patient was made comfortable with the above medication and placed on her left side. The endoscope was advanced under direct visualization through the mouth to the duodenum with ease. The esophagus appeared normal. There were some mild reflux changes at the GE junction. Inside the stomach, there were changes consistent with portal hypertensive gastropathy throughout. In the antrum, there was evidence of gastric antral vascular ectasia. Appearances were improved from the previous examination where APC was performed. There was no active bleeding. Retroflexion was performed to look at the fundus and cardia of the stomach. There were no visible varices. In the cardia, there were some superficial ectasias, which could be consistent with portal hypertensive gastropathy. Argon plasma coagulation was performed to areas of the antral vascular ectasias into a small area in the cardia successfully. The duodenum appeared normal. The endoscope was withdrawn from the patient. The patient tolerated the procedure well and there were no immediate complications. IMPRESSIONS: 1. Gastroesophageal reflux disease. 2. Portal hypertensive gastropathy. 3. Gastric antral vascular ectasia status post argon plasma coagulation. PLAN AND RECOMMENDATIONS: 1. Discharge home when recovery parameters are met. 2. We will transfuse the patient with 3 units packed red blood cells today for hemoglobin of 6. 3. Continue to follow up lab with primary care. 4. Repeat EGD with APC in 3-4 weeks. 5. Continue to consider surgical referral for discussion of antrectomy if necessary for continued GI bleeding from GAVE. TRANSINT:[id number] Voice Confirmation ID: [id number] DOCUMENT ID: [id number] OPERATIVE REPORT [id number] CARYN HOLCOMB KRISS FINCH DO at 0749 CC: [id number] DICTATION DATE: 04/20/19 0843 COKE CRUSHER OPERATOR: 04/20/19 1325 [facility] 04/20/19 [facility] [address] [place] [address]
== END 2019-04-20 16:00 | disposition home or self-care (01) ==
LOC: D.OPS 05:55
PROVIDERS: Anesthesiology; ATTEND Internal Medicine Gastroenterology
DX: K31.819 Angiodysplasia of stomach and duodenum without bleeding (principal); E11.9 Type 2 diabetes mellitus without complications; K21.9 Gastro-esophageal reflux disease without esophagitis; K76.6 Portal hypertension; K31.89 Other diseases of stomach and duodenum

== ENCOUNTER 2019-05-07 08:41 | Day surgery (SDC) | payer BC ==
[~2019-05-07] VITALS: Ht 157.5 cm; Wt 70.5 kg
--- NOTE | 2019-05-07 11:31 | NUR ---
904-arrived to outpatient for add on blood transfusion. placed in waiting room to await open bed. 1100-to room, blood consent signed, iv sited x 1 20g to r hand.
[2019-05-07 11:52] VITALS: BP 97/40; Ht 157.5 cm; Wt 70.5 kg
--- NOTE | 2019-05-07 16:41 | NUR ---
1630-RECD TO ROOM FROM GI LAB. ALERT. RESP WITH EASE. IV PATENT. VOBRADLEY IN TO REPORT FINDINGS AND DISCUSS OPTIONS. TAKING CLEAR LIQUIDS WITHOUT NAUSEA.
[2019-05-07 17:00] LABS: HEMATOCRIT 29.1 % (36.0-48.0); HEMOGLOBIN 9.3 g/dL (12-16)
--- NOTE | 2019-05-07 17:33 | NUR ---
1715-D/C HOME VIA WHEELCHAIR WITH SPOUSE. PATIENT STATES HAS MULTIPLE COPIES OR REFLUX DIET AND NSAID SHEET!
--- NOTE | 2019-05-12 11:35 | OP ---
PATIENT NAME: CARYN HOLCOMB MEDICAL RECORD: [id number] :54 LOCATION:[facility] ADMISSION DATE: SURGEON: KRISS FINCH DO DATE OF OPERATION: 05/07/2019 PROCEDURE: EGD with argon plasma coagulation for hemostasis regarding GAVE. SCOPE: Olympus video gastroscope. MEDICATIONS: Propofol 200 mg IV per anesthesia. ESTIMATED BLOOD LOSS: Minimal. COMPLICATIONS: None. FINDINGS: Informed consent was given. The patient was made comfortable with the above medication. After reaching an adequate level of sedation by slow IV push, the patient was placed in the left side. The endoscope was advanced under direct visualization through the mouth to the second portion of the duodenum with ease. The esophagus appeared normal other than some mild grade I esophageal varices. There were some mild reflux changes at the GE junction. Inside the stomach, there were changes consistent with portal hypertensive gastropathy throughout. In the antrum, there was evidence of gastric antral vascular ectasias. Appearances were improved from the previous examination where APC was performed. There were multiple clean based ulcers scattered throughout the antrum and prepyloric region that are likely from past APC therapy earlier this month. There was no active bleeding other than a small site. There was oozing some blood at the edge of one of the ulcer bases. There was also some oozing of blood from passage of the endoscope through the pylorus into the duodenum. APC was used to cauterize these 2 sites successfully. The duodenum appeared normal. The endoscope was withdrawn from the patient. The patient tolerated the procedure well and there were no immediate complications. IMPRESSION: 1. Grade I esophageal varices without bleeding stigmata. 2. Gastroesophageal reflux disease. 3. Portal hypertensive gastropathy. 4. Gastric antral vascular ectasia, status post APC in 2 small sites. PLAN AND RECOMMENDATIONS: 1. Discharge home when recovery parameters are met. 2. Continue transfusions as needed to maintain hemoglobin through hemoglobin checks. 3. Repeat EGD with APC as scheduled on 06/01/2018. 4. We will refer the patient to the interventional radiology clinic for evaluation of portal pressures and consideration of a TIPS in light of ongoing bleeding, which could possibly be related to portal hypertensive gastropathy while we are treating GAVE. Of note, biopsies have been taken from the antral site in the past with no definitive evidence of 1 diagnosis over the other. 5. We will continue to consider a surgical referral for discussion of antrectomy if necessary for continued GI bleeding related to the GAVE. TRANSINT:[id number] Voice Confirmation ID: [id number] DOCUMENT ID: [id number] OPERATIVE REPORT [id number] CARYN HOLCOMB NATHAN A DO at 1135 CC: [id number] DICTATION DATE: 05/07/19 1639 PUMP OPERATOR BYPRODUCTS: 05/07/190 [facility] 05/07/[address] [address]
== END 2019-05-07 17:15 | disposition home or self-care (01) ==
LOC: D.OPS 08:41 → EDSTATUS 09:00 → D.OPS 17:15
PROVIDERS: Internal Medicine Gastroenterology; ATTEND Family Medicine
DX: K31.819 Angiodysplasia of stomach and duodenum without bleeding (principal); I85.00 Esophageal varices without bleeding; K21.9 Gastro-esophageal reflux disease without esophagitis; K76.6 Portal hypertension; K31.89 Other diseases of stomach and duodenum; E11.9 Type 2 diabetes mellitus without complications; D64.9 Anemia, unspecified

== ENCOUNTER 2019-06-25 09:51 | Outpatient (CLI) | payer MEDICARE, BC ==
[~2019-06-25] VITALS: Ht 157.5 cm; Wt 80.0 kg
[2019-06-25 11:05] VITALS: Ht 157.5 cm; Wt 80.0 kg
== END 2019-06-25 15:15 | disposition home or self-care (01) ==
LOC: D.OPS 09:51
PROVIDERS: ATTEND Internal Medicine Hematology & Oncology
DX: D64.9 Anemia, unspecified (principal); D69.49 Other primary thrombocytopenia

== ENCOUNTER 2019-07-03 10:04 | Outpatient (CLI) | payer MEDICARE, BC ==
[~2019-07-03] VITALS: Ht 157.5 cm; Wt 80.0 kg
[2019-07-03 11:19] VITALS: BP 104/54; Ht 157.5 cm; Wt 80.0 kg
--- NOTE | 2019-07-03 14:10 | NUR ---
PRBC'S SECOND UNIT TRANSFUSING TO RIGHT HAND PIV, PATIENT DENIES ANY SYMPTOMS OF TRANSFUSION REACTION, VSS
== END 2019-07-03 15:15 | disposition home or self-care (01) ==
LOC: D.OPS 10:04
PROVIDERS: ATTEND Internal Medicine Hematology & Oncology
DX: D64.9 Anemia, unspecified (principal)

== ENCOUNTER 2019-07-23 12:00 | Outpatient (CLI) | payer MEDICARE, BC ==
[~2019-07-23] VITALS: Ht 157.5 cm; Wt 80.0 kg
[2019-07-23 14:02] VITALS: BP 106/53; Ht 157.5 cm; Wt 80.0 kg
== END 2019-07-23 17:17 | disposition home or self-care (01) ==
LOC: D.OPS 12:00
PROVIDERS: ATTEND Internal Medicine Hematology & Oncology
DX: K92.2 Gastrointestinal hemorrhage, unspecified (principal); D64.9 Anemia, unspecified

== ENCOUNTER 2019-08-06 12:42 | Outpatient (CLI) | payer MEDICARE, BC ==
[~2019-08-06] VITALS: Ht 157.5 cm; Wt 83.2 kg
[2019-08-06 13:21] VITALS: BP 112/46; Ht 157.5 cm; Wt 83.2 kg
--- NOTE | 2019-08-06 14:25 | NUR ---
98% ON 2LPM DC'D O2 WILL CONTINUE TO MONITOR.
== END 2019-08-06 17:50 | disposition home or self-care (01) ==
LOC: D.OPS 12:42
PROVIDERS: ATTEND Internal Medicine Hematology & Oncology
DX: D64.9 Anemia, unspecified (principal)

== ENCOUNTER 2019-08-28 10:12 | Outpatient (CLI) | payer MEDICARE, BC ==
[~2019-08-28] VITALS: Ht 157.5 cm; Wt 81.8 kg
[2019-08-28 12:44] VITALS: BP 121/48; Ht 157.5 cm; Wt 81.8 kg
== END 2019-08-28 14:55 | disposition home or self-care (01) ==
LOC: D.OPS 10:12 → D.CT 10:12 → D.OPS 14:55
PROVIDERS: ATTEND General Practice
DX: K74.60 Unspecified cirrhosis of liver (principal); D64.9 Anemia, unspecified

== ENCOUNTER → 2019-10-02 08:25 | Outpatient (CLI) | payer MEDICARE, BC ==
[2019-08-28 12:44] VITALS: BMI 33.0
== END | disposition home or self-care (01) ==
LOC: D.MRI 08:25
PROVIDERS: ATTEND Family Medicine
DX: S32.010A Wedge compression fracture of first lumbar vertebra, initial encounter for closed fracture (principal)

== ENCOUNTER → 2019-10-12 08:01 | Outpatient (CLI) | payer MEDICARE, BC ==
[~2019-10-12] VITALS: Ht 157.5 cm; Wt 81.8 kg
[2019-10-12 10:10] VITALS: BP 110/59; Ht 157.5 cm; Wt 81.8 kg
== END | disposition home or self-care (01) ==
LOC: D.OPS 10-09 09:51
PROVIDERS: ATTEND Internal Medicine Hematology & Oncology
DX: D64.9 Anemia, unspecified (principal)

== ENCOUNTER 2019-10-13 15:51 | Outpatient (CLI) | payer MEDICARE, BC ==
[~2019-10-13] VITALS: Ht 157.5 cm; Wt 81.8 kg
--- NOTE | 2019-10-13 16:40 | NUR ---
PATIENT CATHERIZED USING FEMALE CATH KIT, URINE SPECIMEN CONTAINER FILLED AND CATHETER REMOVED. PATIENT TOLERATED PROCEDURE WELL
[2019-10-13 17:38] VITALS: Ht 157.5 cm; Wt 81.8 kg
[2019-10-13 17:40] LABS: BILIRUBIN NEGATIVE (NEGATIVE); GLUCOSE 250 mg/dL (NEGATIVE); KETONE NEGATIVE (NEGATIVE); NITRITE NEGATIVE (NEGATIVE); SPECIFIC GRAVITY 1.025 (1.005-1.020); UROBILINOGEN NORMAL (NORMAL)
== END 2019-10-13 16:44 | disposition home or self-care (01) ==
LOC: D.OPS 15:51 → D.LAB 15:51 → D.OPS 16:44
PROVIDERS: ATTEND General Practice
DX: N39.0 Urinary tract infection, site not specified (principal)

== ENCOUNTER 2019-10-21 08:30 | Outpatient (CLI) | payer MEDICARE, BC ==
[~2019-10-21] VITALS: Ht 157.5 cm; Wt 81.8 kg
--- NOTE | ~2019-10-21 | HEMODYNAMI ---
PATIENT:CARYN HOLCOMB MEDICAL RECORD: [id number] : 53 LOCATION:[facility] ADMISSION DATE: 10/21/19 Generatedon:10/21/201911:43 Patient name: CARYN HOLCOMB Patient #: [id number] SSN: : 1955 Date of study: 10/21/2019 Page: Of Hemodynamic Procedure Report Patient Data Patient Demographics Procedure consent was obtained First Name: CARYN Gender: Female Last Name: ZHANG : 1955 [facility] Initial: PATTI Age: 64 year(s) Patient #: [id number] Race: Unknown Additional ID: [id number] Contact details Address: [address] [address] State: [place] City: [place] Zip code: [address] Past Medical History Allergies: No known allergies Admission Admission Data Admission Date: 10/21/2019 Admission Time: 8:30 Procedure Procedure Types Cath Procedure Peripheral Cath Diagnostic Procedure Suction Roller Peripheral Procedures Kyphoplasty Kyphoplasty Lumbar Procedure Description Procedure Date Procedure Date: 10/21/2019 Procedure Start Time: 11:02 Procedure Staff Name Function Adan Ventura MD Performing Physician Minal Cole RT Dope Maintenance Worker Aissatou RUSSO RN Nurse Maria R Medrano RN Nurse Ryan Tom RT Scrub Geoffrey Chiang CRNA Additional personnel Procedure Data Cath Procedure Fluoroscopy Diagnostic fluoroscopy Total fluoroscopy Time: 5.6 time: 5.6 min min Diagnostic fluoroscopy Total fluoroscopy dose: 402 dose: 402 mGy mGy Contrast Material Contrast Material Type Amount (ml) Isovue 300 10 Procedure Medications Medication Administration Route Dosage Heparin Flush Bag added to field 1 bags (1000units/500ml NS) Lidocaine 1% added to field 20 Ancef (1Gm/50ml NS) I.V.P.B 1 g Hemodynamics Rest Heart Rate: 77 (bpm) Snapshots Pre Cath Intra NCS Post Cath Vital Signs Time Heart Resp SPO2 etCO2 NIBP Rhythm Pain Sedation Rate (ipm) (%) (mmHg) (mmHg) Status Level (bpm) 10:52:30 74 21 100 37.5 118/64(83) NSR 0 (11) 10(A) , No pain 10:56:44 79 12 99 42.7 89/45(66) NSR 0 (11) 10(A) , No pain 11:00:48 80 11 99 44.2 87/46(68) NSR 0 (11) 10(A) , No pain 11:04:50 78 11 99 42.7 89/49(68) NSR 0 (11) 10(A) , No pain 11:08:52 79 10 99 45 88/50(67) NSR 0 (11) 10(A) , No pain 11:12:51 77 11 99 45 92/53(68) NSR 0 (11) 10(A) , No pain 11:16:53 81 11 99 44.2 106/57(74) NSR 0 (11) 10(A) , No pain 11:21:01 80 11 99 42 96/46(74) NSR 0 (11) 10(A) , No pain 11:25:02 80 11 98 42 103/58(74) NSR 0 (11) 10(A) , No pain 11:29:10 80 10 98 39.7 94/51(69) NSR 0 (11) 10(A) , No pain 11:33:12 83 11 98 42.7 103/55(83) NSR 0 (11) 10(A) , No pain 11:37:16 78 13 98 37.5 107/60(76) NSR 0 (11) 10(A) , No pain 11:41:19 88 18 91 33 114/64(87) NSR 0 (11) 10(A) , No pain Medications Time Medication Route Dose Verified Delivered Reason Notes Eff ectiveness by by 10:51:59 Heparin Flush added 1 Adan Arellano used for Bag to bags Lorenzo Ventura MD procedure (1000units/500ml field MAHONEY NS) 10:52:53 Lidocaine 1% added 20ml Adan Arellano for local to vial Lorenzo Ventura MD anesthetic field MAHONEY 10:53:11 Ancef (1Gm/50ml I.V.P.B 1 g Adan Heck Per NS) Mitchell Ventura RN physician MD Procedure Log Time Note 10:41:02 Use device set IR Diagnostic 10:41:04 Tegaderm 4 x 4 ([id number]) opened to sterile field. 10:41:05 Sterile Angiographic Pack opened to sterile field. 10:41:06 Bag Decanter (2002S) opened to sterile field. 10:41:28 Joel BONE BX 11GA kit opened to sterile field. 10:41:29 JOEL BNCMNT CURV BALLOON [id number] opened to sterile field. 10:41:30 Joel BONE CEMENT WITH NEEDLE AUTOPLEX Kit opened to sterile field. 10:41:37 Time tracking: Regular hours (M-F 7:00 - 5:00) 10:42:00 Plan of Care:Hemodynamics will remain stable., Cardiac rhythm will remain stable., Comfort level will be maintained., Respiratory function will remain adequate., Patient/ family verbilizes understanding of procedure., Procedure tolerated without complication., Recovers from procedure without complications.. 10:42:06 Patient received from Outpatients to IR Alert and oriented. Tansferred to table in Supine position. 10:42:09 Signed procedure consent form obtained from patient. 10:42:15 H&P Date Dictated: 10/21/2019 Within 30 days and on chart., H&P Addendum completed by physician on day of procedure. (MUST COMPLETE FOR ALL OUTPATIENTS). 10:42:18 Pre-procedure instructions explained to patient. 10:42:18 Pre-op teaching completed and patient verbalized understanding. 10:42:20 Family unavailable. 10:42:23 Patient NPO since Midnight. 10:42:32 Patient allergic to No known allergies 10:42:37 - 10:42:37 ----Pre-sedation anethsthesia assessment.----see anesthesia notes for monitoring of patient during procedure 10:43:43 Previous problem with sedation/anesthesia? No ? 10:44:47 Lumbar area was prepped with dura-prep and draped in sterile fashion 10:44:49 - 10:51:31 Vital chart was started 10:51:59 Heparin Flush Bag (1000units/500ml NS) 1 bags added to field was administered by Adan Ventura MD; used for procedure; Verbal order read back and verified. 10:52:40 ECG and BP/O2 sat monitors applied to patient. 10:52:42 Baseline sample Acquired. 10:52:44 Full Disclosure recording started 10:52:45 - 10:52:49 Baseline sample Acquired. 10:52:53 Lidocaine 1% 20ml vial added to field was administered by Adan Ventura MD; for local anesthetic; Verbal order read back and verified. 10:53:11 Ancef (1Gm/50ml NS) 1 g I.V.P.B was administered by Maria R Medrano RN; Per physician; Verbal order read back and verified. 11:01:47 Physician arrived 11:01:48 --------ALL STOP TIME OUT------ 11:01:49 Final Timeout: patient, procedure, and site verified with staff and physician. All members of the team are in agreement. 11:02:06 Fire Safety Assessment: A--An alcohol-based skin anteseptic being used preoperatively., C--Open oxygen or nitrous oxide is being used. 11:02:33 Procedure started. 11:02:39 Local anesthetic to Lumbar area with Lidocaine 1% by Adan Ventura MD.INITIAL ACCESS ONLY 11:10:25 Jamshidi needle introduced. 11:12:41 Bone bx needle placed. 11:15:58 Kyphoplasty balloon introduced. 11:18:23 Cement introduced to vertebral body. 11:19:39 Jamshidi needle removed. 11:25:00 Procedure ended.(Physican Out) 11:29:52 Fluoroscopy time 05.60 minutes. 11:29:57 Fluoroscopy dose: 402 mGy 11:29:57 Flurop Dose total: 402 11:30:07 Contrast amount:Isovue 300 10ml, for kypho balloon only 11:30:56 Procedure and supply charges have been captured, reviewed, submitted an d are correct. 11:33:02 Report given to Outpatients. 11:43:20 Vital chart was stopped Device Usage Item Name Manufacture Quantity Catalog Hospital Part Current Minim al Lot# / Number Charge Number Stock Stock Serial# Code Tegaderm 4 x 3M 1 [id number] 4 (1626W) Sterile Cardinal 1 [id number] 5 Angiographic Health Pack Bag Decanter Microtek 1 2001S [id number] 5 (2001S) [employer] Colquitt BONE Colquitt 1 [id number] [id number] 5 BX 11GA kit JOEL Colquitt 1 [id number] [id number] 1 BNCMNT CURV BALLOON [id number] Colquitt BONE Joel 1 [id number] [id number] 5 CEMENT WITH NEEDLE AUTOPLEX Kit Signature Audit Jarrell Stage Time Signature Unsigned Intra-Procedure 10/21/2019 Minal Cole 11:43:16 AM RT(R) [facility] [address] [place] [address]
[2019-10-21 09:29] LABS: ANION GAP 11.5 mmol/L (8-16); CALCIUM 8.9 mg/dL (8.5-10.1); CARBON DIOXIDE 25.7 mmol/L (21.0-32.0); POTASSIUM - SERUM 4.2 mmol/L (3.5-5.1)
[2019-10-21 09:46] VITALS: BP 105/55; Ht 157.5 cm; Wt 81.8 kg
[2019-10-21 09:46] LABS: BASOPHILS 0.9 % (0-2); EOSINOPHILS 3.2 % (0-7); HEMOGLOBIN 8.2 g/dL (12-16); IMMATURE GRANULOCYTES 0.6 % (0-5); LYMPHOCYTES 12.4 % (15-50); MCH 28.8 pg (26.0-34.0); MCHC 31.5 g/dL (31.0-37.0); MCV 91.2 fL (80.0-100.0); MEAN PLATELET VOLUME 10.9 fL (7.4-10.4); NEUTROPHILS 73.9 % (40-80); RBC 2.85 10x6/uL (4.00-5.40); WBC 3.5 10x3/uL (4.8-10.8)
[2019-10-21 09:48] LABS: PLATELET COUNT 74 10x3/uL (130-400)
[2019-10-21 10:14] LABS: APTT 35.1 SECONDS (22.8-39.4); INR 0.98 (0.85-1.17); PROTIME 12.9 SECONDS (11.6-15.0)
--- NOTE | 2019-10-21 10:27 | NUR ---
1000 IR NOTIFIED OF KO=758 AND NEED TO RECHECK AT 1035.
--- NOTE | 2019-10-21 10:48 | NUR ---
1030 BS 394 PER FINGERSTICK AND ANESTHESIA NOTIFIED
[2019-10-21 12:30] LABS: PLATELET ESTIMATE DECREASED
--- NOTE | 2019-10-21 15:24 | NUR ---
1220 BS PER FINGERSTICK IS 330. PT ASLEEP. FLAT AND ARROUSES WITH PHYSICAL STIMULI. HALEY WELL 1500 IV REMOVED AND INSTRUCTIONS GIVEN.
== END 2019-10-21 15:24 | disposition home or self-care (01) ==
LOC: D.SP 08:30 → D.RAD 08:49 → D.SP 09:30 → D.RAD 11:00 → D.SP 15:24
PROVIDERS: ATTEND General Practice
DX: S32.019A Unspecified fracture of first lumbar vertebra, initial encounter for closed fracture (principal); E11.9 Type 2 diabetes mellitus without complications; Z79.84 Long term (current) use of oral hypoglycemic drugs

== ENCOUNTER 2019-10-30 08:25 | Outpatient (CLI) | payer MEDICARE, BC ==
[2019-10-21 09:46] VITALS: BMI 33.0
--- NOTE | 2019-10-30 15:39 | NUR ---
1400 IV REMOVED AND TRANSFUSION INSTRUCTIONS GIVEN. PTS COLOR BETTER. LESS PALE AND NO S/E FROM TRASNFUSION.
== END 2019-10-30 14:25 | disposition home or self-care (01) ==
LOC: D.OPS 08:25
PROVIDERS: ATTEND Internal Medicine Hematology & Oncology
DX: D64.9 Anemia, unspecified (principal)

== ENCOUNTER 2019-11-13 08:55 | Outpatient (CLI) | payer MEDICARE, BC ==
[~2019-11-13] VITALS: Ht 157.5 cm; Wt 81.8 kg
[2019-11-13 09:54] VITALS: BP 111/48; Ht 157.5 cm; Wt 81.8 kg
--- NOTE | 2019-11-13 15:03 | NUR ---
1435 iv removed and pressure held. instructions given.
== END 2019-11-13 14:40 | disposition home or self-care (01) ==
LOC: D.OPS 08:55
PROVIDERS: ATTEND Internal Medicine Hematology & Oncology
DX: D64.9 Anemia, unspecified (principal)

== ENCOUNTER 2019-11-18 09:56 | Inpatient (IN) | payer MEDICARE, BC ==
[2019-11-18] VITALS (10 sets, daily range): BP systolic 101–126; BP diastolic 45–62; BMI 33.0; BMI 33.2
[~2019-11-18] VITALS: Ht 157.5 cm; Wt 78.8 kg
--- NOTE | ~2019-11-18 | HEMODYNAMI ---
PATIENT:CARYN HOLCOMB MEDICAL RECORD: [id number] : 53 [id number] ADMISSION DATE: 11/18/19 Generatedon:11/18/201914:32 Patient name: CARYN HOLCOMB Patient #: [id number] SSN: : 1955 Date of study: 11/18/2019 Page: Of Hemodynamic Procedure Report Patient Data Patient Demographics Procedure consent was obtained First Name: CARYN Gender: Female Last Name: ZHANG : 1955 [facility] Initial: PATTI Age: 64 year(s) Patient #: [id number] Race: Unknown Additional ID: [id number] Contact details [address]: [address] [place] [address] State: [place] City: [place] Zip code: [address] Past Medical History Allergies: No known allergies Admission Admission Data Admission Date: 11/18/2019 Admission Time: 13:00 Height (in.): 62 BSA: 1.83 (m2) Height (cm.): 157.48 BMI: 32.92 (kg/m2) Weight (lbs.): 180 Weight (kg.): 81.65 Procedure Procedure Types Cath Procedure Peripheral Cath Diagnostic Procedure Awning Spreader Peripheral Procedures Liver TIPSS Procedure Description Procedure Date Procedure Date: 11/18/2019 Procedure Start Time: 12:32 Procedure Staff Name Function Adan Ventura MD Performing Physician Minal Cole RT Supervisor Wet Room Geoffrey Chiang CRNA Additional personnel Maria R Medrano RN Nurse Aissatou RUSSO RN Nurse Ryan Tom RT Scrub Procedure Data Cath Procedure Fluoroscopy Diagnostic fluoroscopy Total fluoroscopy Time: time: 31.5 min 31.5 min Diagnostic fluoroscopy Total fluoroscopy dose: dose: 2311 mGy 2311 mGy Contrast Material Contrast Material Type Amount (ml) Isovue 300 155 Diagnostic catheters Device Type Used For End Catheter Placement DIAGNOSTIC MPA-2 5Fr catheter ([id number]) Merit UHF Pigtail VESSEL SIZING 5Fr 65CM catheter ([id number]) Procedure Medications Medication Administration Route Dosage Refer to Anesthesia Notes for Sedation Medications Hemodynamics Rest BSA: 1.83 (m2) O2 Consumption: Estimated: 174.67 (ml/min) O2 Consumption indexed : Estimated:95.45 (ml/min/m) Heart Rate: 75 (bpm) Pressure Samples Time Site Value (mmHg) Purpose Heart Use Rate(bpm) 13:50 Portal (33) Snapshot 75 13:50 Portal (32) Snapshot 74 13:53 RA 21/19(18) Snapshot 75 13:53 RA 22/19(18) Snapshot 74 13:54 RA 23/19(18) Snapshot 73 14:21 Portal 33/31(31) Snapshot 86 14:21 Portal 32/30(31) Snapshot 86 14:23 RA 26/23(21) Snapshot 87 14:23 RA 25/23(22) Snapshot 88 14:23 RA 25/23(22) Snapshot 87 14:23 RA 25/23(21) Snapshot 87 14:23 RA 25/23(22) Snapshot 86 Snapshots Pre Cath Intra NCS Post Cath Medications Time Medication Route Dose Delivered Reason Notes Effectiveness by 12:20:59 Refer to Anesthesia Notes for Sedation Medications Procedure Log Time Note 11:42:30 Patient Height : 62 inches 11:42:33 Patient Weight : 180 lbs 11:43:08 Use device set IR Diagnostic 11:44:35 Micropuncture VSI 4FR kit opened to sterile field. 11:44:36 ORDOÑEZ 260 wire (Y17870) opened to sterile field. 11:44:37 DOC .035 wire (Y58019) opened to sterile field. 11:44:38 INFLATOR BasixTOUCH (WD9931) opened to sterile field. 11:44:39 SHEATH 5FR Collins (AEO270) opened to sterile field. 11:44:40 GLIDE WIRE ANGLE 260cm (ZH0648) opened to sterile field. 11:44:41 TUBING Contrast Injection High Pressure (BUR068T) opened to sterile field. 11:44:42 TUBING Contrast Injection High Pressure (IQU022F) opened to sterile field. 11:44:44 KIT, TRANSJUGULAR LIVER ACCESS R opened to sterile field. 11:44:45 Tegaderm 4 x 4 (1626W) opened to sterile field. 11:44:46 Sterile Angiographic Pack opened to sterile field. 11:44:47 Bag Decanter (2002S) opened to sterile field. 11:44:48 ACIST Manifold (77713) opened to sterile field. 11:44:49 ACIST Hand Control (27554) opened to sterile field. 11:44:50 ACIST Syringe (23226) opened to sterile field. 11:44:53 - 11:52:07 Time tracking: Regular hours (M-F 7:00 - 5:00) 11:52:16 Plan of Care:Hemodynamics will remain stable., Cardiac rhythm will remain stable., Comfort level will be maintained., Respiratory function will remain adequate., Patient/ family verbilizes understanding of procedure., Procedure tolerated without complication., Recovers from procedure without complications.. 11:52:23 Patient received from Outpatients to IR Alert and oriented. Tansferred to table in Supine position. 11:52:26 Signed procedure consent form obtained from patient. 11:52:32 H&P Date Dictated: 11/18/2019 Within 30 days and on chart., H&P Addendum completed by physician on day of procedure. (MUST COMPLETE FOR ALL OUTPATIENTS). 11:52:34 Pre-procedure instructions explained to patient. 11:52:35 Pre-op teaching completed and patient verbalized understanding. 11:52:37 Family in waiting room. 11:52:40 Patient NPO since Midnight. 11:52:49 Patient allergic to No known allergies 11:52:52 Is the patient allergic to Iodine/contrast media? No. 11:58:36 STOPCOCK 3-Way Large Bore (T03927) opened to sterile field. 11:58:52 TUBING Contrast Injection High Pressure (QIF552K) opened to sterile field. 11:59:41 Is patient on blood thinner?No 12:00:04 Patient diabetic? Yes. 12:00:06 If diabetic: On Metformin? Yes 12:00:23 If on Metformin: Last Dose? 11/17/2019 12:00:27 - 12:00:28 ----Pre-sedation anethsthesia assessment.----see anesthesia notes for monitoring of patient during procedure 12:03:37 A DIAGNOSTIC MPA-2 5Fr catheter ([id number]) was advanced over the wire an d used for . 12:04:03 GLIDE CATHETER 5FR ANGLED 65cm (CG507) opened to sterile field. 12:05:24 Fire Safety Assessment: A--An alcohol-based skin anteseptic being used preoperatively. 12:05:40 2) 60-89 Mildly reduced kidney function, and other findings (as for stage 1) point to kidney disease. 12:05:44 - 12:05:52 Right neck area was prepped with chlora-prep and draped in sterile fashion 12:20:59 Refer to Anesthesia Notes for Sedation Medications was administered by ; ; Verbal order read back and verified. 12:31:27 Physician arrived 12:31:28 --------ALL STOP TIME OUT------ 12:31:29 Final Timeout: patient, procedure, and site verified with staff and physician. All members of the team are in agreement. 12:32:09 Procedure started. 12:32:09 Full Disclosure recording started 12:32:17 Local anesthetic to right IJ vein with Lidocaine 1% by Adan Ventura MD.INITIAL ACCESS ONLY 12:35:13 A Merit [facility] Pigtail VESSEL SIZING 5Fr 65CM catheter ([id number]) was advanced over the wire and used for . 12:42:35 GLIDE WIRE Angled Super Stiff 180cm (QK0427) opened to sterile field. 12:44:10 TORQUE DEVICE PLASTIC .038 ( TD01) opened to sterile field. 12:47:08 AMPLATZ Super stiff 180cm wire ([id number]) opened to sterile field. 12:50:13 SHEATH 6FR Collins (VYV147) opened to sterile field. 12:50:14 Jonathan 5Fr OTW embolectomy catheter opened to sterile field. 13:19:02 BENTSON 145cm wire (S71822) opened to sterile field. 13:40:04 AMPLATZ Super stiff Straight 260cm wire ([id number]) opened to sterile field. 13:41:53 GLIDE CATHETER 5FR ANGLED 100cm (CG508) opened to sterile field. 13:50:31 Zero performed for pressure channel P1 13:53:16 Zero performed for pressure channel P1 13:59:56 Inflate balloon Inflation number: 1 A Evercross 4 x 6 x 135 Balloon ([id number]) was prepped and advanced across the Undefined1 , then inflated . 14:13:33 Inflate balloon Inflation number: 2 A Evercross 6 x 8 x 135 Balloon ([id number]) was prepped and advanced across the Undefined1 , then inflated . 14:16:25 Inflate balloon Inflation number: 3 A EVERCROSS 8 X 80 X 135 BALLOON ([id number]( was prepped and advanced across the Undefined1 , then inflated . 14:21:09 Zero performed for pressure channel P1 14:23:18 Zero performed for pressure channel P1 14:23:26 Zero performed for pressure channel P1 14:25:12 Procedure ended.(Physican Out) 14:25:35 Contrast amount:Isovue 300 155ml. 14:25:52 Fluoroscopy dose: 2311 mGy 14:25:52 Flurop Dose total: 2311 14:25:56 Procedure and supply charges have been captured, reviewed, submitted an d are correct. 14:26:46 Report given to PCU. 14:30:45 Fluoroscopy time 31.50 minutes. Intervention Summary Intervention Notes Time ActionType Lesion and Equipment Used Action# Pressure Duration Attributes 13:59:56 Inflate Undefined1 Evercross 4 x 6 1 0 00:00 balloon x 135 Balloon ([id number]) 14:13:33 Inflate Undefined1 Evercross 6 x 8 2 0 00:00 balloon x 135 Balloon ([id number]) 14:16:25 Inflate Undefined1 EVERCROSS 8 X 3 0 00:00 balloon 80 X 135 BALLOON ([id number]( Device Usage Item Name Manufacture Quantity Catalog Number Hospital Part Current M inimal Lot# / Charge Number Stock Stock Serial# Code Micropuncture VSI VASCULAR 1 7266V [id number] [id number] 5 VSI 4FR kit SOLUTIONS ORDOÑEZ 260 wire Cook Medical 1 W10088 373758 12866 503284 5 (X84690) DOC .035 wire Cook Medical 1 X53586 815872 397058 5 (M07524) INFLATOR Merit 1 LA9075 539242 403291 269294 5 BasixTORoxro Pharma Medical (AT2688) SHEATH 5FR Terumo 1 IHY580 421979 087953 156698 5 Collins (AVW121) GLIDE WIRE Terumo 1 KC6868 908653 322170 297757 5 ANGLE 260cm (SI2488) TUBING Contrast Merit 3 [id number] 882045 138182 797877 5 Injection High Medical Pressure ([id number]) KIT, Cook Medical 1 T00232 351531 511525 5 [id number] TRANSJUGULAR LIVER ACCESS R Tegaderm 4 x 4 3M 1 1626W 358891 803093 007163 5 (1626W) Sterile Cardinal 1 [id number] 452297 452452 5 Angiographic Health Pack Bag Decanter Microtek 1 2001S 270422 79592 576200 5 (2001S) Medical Inc. ACIST Manifold Acist 1 28349 680647 984229 639538 5 (91388) Medical Systems Inc ACIST Hand Acist 1 61438 940458 999562 186069 5 Control (82827) Medical Systems Inc ACIST Syringe Acist 1 17800 972317 887549 800709 2 0 (60984) Medical Systems Inc STOPCOCK 3-Way Cook Medical 1 P14134 690372 3079 451647 5 Large Bore (M22753) DIAGNOSTIC Cardinal 1 [id number] 717433 856845 451631 5 MPA-2 5Fr Health catheter (967152Y) GLIDE CATHETER Terumo 1 CG507 103409 746651 5 5FR ANGLED 65cm (CG507) Merit UHF Merit 1 7602-20M65 598035 863801 5 Pigtail VESSEL Medical SIZING 5Fr 65CM catheter ([id number]) GLIDE WIRE Terumo 1 SH0694 064628 588744 5 Angled Super Stiff 180cm (TR0061) TORQUE DEVICE [place] 1 TD01 259858 662863 410235 5 PLASTIC .038 ( Scientific TD01) AMPLATZ Super [place] 1 [id number] 122969 668894 135967 5 stiff 180cm Scientific wire ([id number]) SHEATH 6FR Terumo 1 QUE186 437632 393937 223778 4 0 Collins (EUK125) Jonathan 5Fr OTW Hendrix 1 [id number] 899980 622849 885616 5 embolectomy Lifesciences catheter BENTSON 145cm Cook Medical 1 C91775 947562 185712 5 wire (G41050) AMPLATZ Super [place] 1 [id number] 383223 31848 173892 5 stiff Straight Scientific 260cm wire ([id number]) GLIDE CATHETER Terumo 1 CG508 303064 47899 165026 4 5FR ANGLED 100cm (CG508) Evercross 4 x 6 Medtronic 1 [id number] 339092 015579 937016 5 x 135 Balloon ([id number]) Evercross 6 x 8 Medtronic 1 [id number] 777289 283232 061670 5 x 135 Balloon ([id number]) EVERCROSS 8 X Medtronic 1 [id number] 857198 894700 1 80 X 135 BALLOON ([id number]( Signature Audit Radisson Stage Time Signature Unsigned Intra-Procedure 11/18/2019 Minal Cole 2:32:04 PM RT(R) [place] [address] [place] [address]
[2019-11-18 10:41] LABS: ALBUMIN 3.5 g/dL (3.4-5.0); ANION GAP 12.4 mmol/L (8-16); BILIRUBIN - TOTAL 1.1 mg/dL (0.2-1.3); CALCIUM 9.8 mg/dL (8.5-10.1); CARBON DIOXIDE 24.8 mmol/L (21.0-32.0); CREATININE - SERUM 0.9 mg/dL (0.6-1.3); POTASSIUM - SERUM 4.2 mmol/L (3.5-5.1); PROTEIN - SERUM 6.8 g/dL (6.4-8.2)
[2019-11-18 10:51] LABS: APTT 38.1 SECONDS (22.8-39.4); INR 1.31 (0.85-1.17); PROTIME 16.2 SECONDS (11.6-15.0)
[2019-11-18 11:10] LABS: BASOPHILS 0.4 % (0-2); EOSINOPHILS 3.4 % (0-7); HEMATOCRIT 29.3 % (36.0-48.0); HEMOGLOBIN 9.4 g/dL (12-16); IMMATURE GRANULOCYTES 0.2 % (0-5); MCH 28.7 pg (26.0-34.0); MCHC 32.1 g/dL (31.0-37.0); MCV 89.6 fL (80.0-100.0); MEAN PLATELET VOLUME 11.2 fL (7.4-10.4); MONOCYTES 7.3 % (2-11); NEUTROPHILS 73.7 % (40-80); PLATELET COUNT 85 10x3/uL (130-400); RBC 3.27 10x6/uL (4.00-5.40); RDW 15.3 % (11.5-14.5); WBC 4.7 10x3/uL (4.8-10.8)
[2019-11-18 12:28] LABS: PLATELET ESTIMATE DECREASED
--- NOTE | 2019-11-18 16:30 | NUR ---
RECEIVED FROM RECOVERY ROOM. STILL SLEEPY, BUT WILL WAKE UP, NEEDED TO BE REORIENTATED PLACE AND SITUATION. KNOWS WHAT YEAR IT IS, WHAT TOWN SHE IS IN AND WHO THE PRESIDENT IS. SKIN WARM AND DRY. DRESSING RIGHT NECK SMALL AMOUNT BLOOD ON DRESSING. IV LEFT AC NO REDNESS OR SWELLING NS AT 75 ML HOUR. AT BEDSIDE.
--- NOTE | 2019-11-18 18:08 | NUR ---
CALL GI OFFICE NUMBER INFORMED NO GI HOSPITAL STAFF PHARMACIST THIS EVENING
--- NOTE | 2019-11-18 18:23 | NUR ---
WAKING UP EASIER. PO MEDS TAKEN WITHOUT DIFFICULTY. VOIDED CLEAR YELLOW ON BEDPAN. NO DISTRESS. MINIMAL PAIN RIGHT CHEST. DR. LY AWARE. PAIPALOMO RIZO VOICE. SERVICES STATES NO GI MEDIA PLANNER / BUYER TONIGHT. IV PATENT. MONITOR SR. LAB DRAWN.
[2019-11-18 18:39] LABS: HEMATOCRIT 25.7 % (36.0-48.0)
--- NOTE | 2019-11-18 19:00 | NUR ---
SHIFT ASSESSMENT COMPLETED. PT CARE ASSUMED, MONITORS ON AND WORKING, VSS, PT AWAKE AND ALERT, CALL LIGHT WITHIN REACH, SEE FLOW SHEET FOR FURTHER DETAILS. WILL CONTINUE TO OBSERVE.
--- NOTE | 2019-11-18 21:00 | NUR ---
PT ASSISTED TO BEDSIDE COMMODE PER PTS REQUEST, PT TOLERATED WELL, MINIMAL ASSIST BACK INTO BED. PT AWAKE AND ALERT, NO SIGNS/SYMPTOMS OF PAIN OR DISCOMFORT NOTED. CALL LIGHT WITHIN REACH, WILL CONTINUE TO OBSERVE.
--- NOTE | 2019-11-18 23:00 | NUR ---
PT TURNED AND REPOSITIONED FOR COMFORT, MONITORS ON AND WORKIN. VSS. CALL LIGHT WITHIN REACH, SEE FLOW SHEET FOR FURTHER DETAILS. WILL CONTINUE TO OBSERVE.
[2019-11-19] VITALS (22 sets, daily range): BP systolic 97–137; BP diastolic 37–66
--- NOTE | 2019-11-19 01:00 | NUR ---
PT UP TO BEDSIDE COMMODE WITH MINIMAL ASSISTANCE. MONITORS ON AND WORKNIG, VSS. PT AWAKE AND ALERT, CALL LIGHT WITHIN REACH. WILL CONTINUE TO OBSERVE.
--- NOTE | 2019-11-19 03:00 | NUR ---
PT LYING IN BED RESTING.MONITORS ON AND WORKING, VSS, CALL LIGHT WITHIN REACH, WILL CONTINUE TO OBSERVE.
--- NOTE | 2019-11-19 05:00 | NUR ---
PT LYING IN BED RESTING. MONITORS ON AND WORKING, VSS. CALL LIGHT WITHIN REACH, WILL CONTINUE TO OBSERVE.
[2019-11-19 06:14] LABS: BASOPHILS 0.4 % (0-2); HEMATOCRIT 25.8 % (36.0-48.0); HEMOGLOBIN 8.3 g/dL (12-16); IMMATURE GRANULOCYTES 0.4 % (0-5); LYMPHOCYTES 8.1 % (15-50); MCH 28.8 pg (26.0-34.0); MCHC 32.2 g/dL (31.0-37.0); MCV 89.6 fL (80.0-100.0); MEAN PLATELET VOLUME 10.6 fL (7.4-10.4); MONOCYTES 8.1 % (2-11); PLATELET COUNT 78 10x3/uL (130-400); RBC 2.88 10x6/uL (4.00-5.40); RDW 15.4 % (11.5-14.5); WBC 5.3 10x3/uL (4.8-10.8)
[2019-11-19 07:03] LABS: ALKALINE PHOSPHATASE 73 U/L (30-120); CALCIUM 8.3 mg/dL (8.5-10.1); CARBON DIOXIDE 26.4 mmol/L (21.0-32.0); CHLORIDE - SERUM 104 mmol/L (98-107); CREATININE - SERUM 0.8 mg/dL (0.6-1.3); POTASSIUM - SERUM 3.8 mmol/L (3.5-5.1); PROTEIN - SERUM 5.9 g/dL (6.4-8.2); SODIUM 137 mmol/L (136-145); eGFR NON AFRICAN AMERICAN 76 mL/min (90-120)
[2019-11-19 07:05] LABS: ALT (SGPT) 50 U/L (10-68); CALC OSMOLALITY 276 mosm/kg (275-300); GLUCOSE 160 mg/dL (74-106); PLATELET ESTIMATE NORMAL; UREA NITROGEN 12 mg/dL (7-18)
[2019-11-19 07:13] LABS: INR 1.17 (0.85-1.17); PROTIME 14.9 SECONDS (11.6-15.0)
--- NOTE | 2019-11-19 09:08 | NUR ---
0700 pt recieved alert and oriented vss denies pain and all needs, r neck incision site cdi, lac piv ns 75, see shift assessment for details 0830 per abbi in radiology ambulated pt on room air, able to walk out of room spo2 82%, returned to room and o2 applied, slowly increased to 92% spo2
--- NOTE | 2019-11-19 14:22 | NUR ---
ADRIANA CALLED TO DR SHANE, CALLED TO [facility] IN RADIOLOGY WHO ASKED THEM TO BE CALLED TO [facility] IN RADIOLOGY, VOICE MAIL LEFT TO RETURN CALL
--- NOTE | 2019-11-19 14:31 | NUR ---
CALL RETURNED FROM [facility] IN IR, UPDATE PROVIDED
--- NOTE | 2019-11-19 16:13 | NUR ---
BUBBLE STUDY DONE BY [employer] AND CHARGE NURSE, HERE FOR VISITATION AND UPDATE PROVIDED
--- NOTE | 2019-11-19 17:16 | NUR ---
PT ATE 75% DINNER
--- NOTE | 2019-11-19 19:00 | NUR ---
SHIFT ASSESSMENT COMPLETED. PT CARE ASSSUMED. MONITORS ON AND WORKING, PT RESTING. MONITORS ON ADN WORKING, VSS. CALL LIGHT WITHIN REACH, WILL CIONTINUE TO OBSERVE.
--- NOTE | 2019-11-19 22:54 | NUR ---
PT WORE BIPAP FOR APPROXIMATELY 45 MINUTES THEN "COULDN'T STAND" IT ANYMORE. RN REPLACED NC. I HAD EXPLAINED EARLIER THAT DR SHANE WANTED PT TO WEAR BIPAP WHILE SLEEPING. SHE STATES HE DID NOT TELL HER THIS AND WOULD NOT WEAR IT ALL NIGHT.
[2019-11-20] VITALS (24 sets, daily range): BP systolic 94–123; BP diastolic 34–60; Ht 157.5 cm; Wt 78.8 kg
[2019-11-20 06:05] LABS: BASOPHILS 0.6 % (0-2); EOSINOPHILS 4.4 % (0-7); HEMATOCRIT 25.7 % (36.0-48.0); HEMOGLOBIN 8.2 g/dL (12-16); IMMATURE GRANULOCYTES 0.5 % (0-5); LYMPHOCYTES 12.6 % (15-50); MCH 28.6 pg (26.0-34.0); MCHC 31.9 g/dL (31.0-37.0); MCV 89.5 fL (80.0-100.0); MEAN PLATELET VOLUME 10.8 fL (7.4-10.4); MONOCYTES 12.9 % (2-11); PLATELET COUNT 87 10x3/uL (130-400); RBC 2.87 10x6/uL (4.00-5.40); RDW 15.4 % (11.5-14.5); WBC 6.5 10x3/uL (4.8-10.8)
[2019-11-20 06:26] LABS: INR 1.29 (0.85-1.17)
[2019-11-20 06:43] LABS: ALBUMIN 2.9 g/dL (3.4-5.0); ALKALINE PHOSPHATASE 74 U/L (30-120); BILIRUBIN - TOTAL 0.94 mg/dL (0.2-1.3); CALCIUM 8.1 mg/dL (8.5-10.1); CHLORIDE - SERUM 105 mmol/L (98-107); CREATININE - SERUM 0.7 mg/dL (0.6-1.3); GLUCOSE 158 mg/dL (74-106); MAGNESIUM - SERUM 1.5 mg/dL (1.8-2.4); PHOSPHOROUS 2.5 mg/dL (2.5-4.9); POTASSIUM - SERUM 3.5 mmol/L (3.5-5.1); PROTEIN - SERUM 5.9 g/dL (6.4-8.2); SODIUM 139 mmol/L (136-145); eGFR NON AFRICAN AMERICAN 89 mL/min (90-120)
[2019-11-20 06:44] LABS: ALT (SGPT) 96 U/L (10-68); CALC OSMOLALITY 278 mosm/kg (275-300); UREA NITROGEN 8 mg/dL (7-18)
[2019-11-20 08:06] LABS: PLATELET ESTIMATE DECREASED
--- NOTE | 2019-11-20 08:20 | NUR ---
SHIFT ASSESSMENT COMPLETED. ASSISTED UP TO BEDSIDE RECLINER FOR BREAKFAST. AT BEDSIDE.
[2019-11-20 10:06] LABS: TROPONIN-I 0.305 ng/mL (0.000-0.060)
--- NOTE | 2019-11-20 12:40 | NUR ---
LASIX 20MG IV GIVEN PER ORDER. INSTRUCTIONS TO PATIENT TO EXPECT FREQUENT URINATION. CALL LIGHT IN HAND.
--- NOTE | 2019-11-20 16:40 | NUR ---
PATIENT HAS HAD FREQUENT TRIPS TO BATHROOM TO URINATE. TWO LIQUID BMS R/T LACTULOS DOSES. DENIES ANY PAIN AT THIS TIME.
--- NOTE | 2019-11-20 18:10 | NUR ---
ASSISTED TO BATHROOM FOLLOWING SMALL AMOUT OF STOOL INCONTINENCE. TO BEDSIDE CHAIR. ASSISTED WITH SPONGE BATH AND GOWN CHANGE. LINENS CHANGED. C/O MILD ABDOMINAL CRAMPING. INSTRUCTED TO ASK FOR PAIN MED IF IT WORSENS.
--- NOTE | 2019-11-20 19:00 | NUR ---
RECIVED REPORT. PT IS SITTING UP IN CHAIR AND C/O OF "MY BELLY IS HURTING". SHE HAS RECIVED 2 DOSES OF LACTULOSE FOR HIGH AMONIA AND WAS TOLD SHE HAD 3 LOOSE STOOLS TODAY. UPON AUSCULTATION BSX4 NORMOACTIVE BUT WITH GURGALING NOISES. HER ABD IS SOFT BUT OBESE. HER VSS. SHE IS A&OX4, WILL PERFORM FULL ASSESSMENT AND DOC IN FLOWSHEET. SHE REFUSES SCD'S. SHE IS OREINTED TO USE OF CALL LIGHT WHEN NEED ASSSITANCE. CHAIR IS LOCKED. CALL LIGHT WITHIN REACH.
--- NOTE | 2019-11-20 20:02 | NUR ---
ASSISTED PT BACK TO BED WITH MINIMAL ASSIST. VSS. STILL C/O OF ABD "BELLY HURTS" BUT IS PASSING GAS. ENCOURAGED HER TO LAY ON HER LEFT SIDE TO HELP LET PASS PRESSURE OUT EAISER. SHE VERBALIZED UNDERSTANDING. NO NEEDS VERBALIZED. BED IS LOW,SIDE RAISLX2,CALL LIGHT WIHTIN REACH. WILL CONINTUE TO MONITOR
--- NOTE | 2019-11-20 21:54 | NUR ---
PT IS RESTING ON LEFT SIDE WITH EYES CLOSED. VSS. WAKES EAISLY. SEEMS TO BE MORE COMFORTABLE AT THIS TIME BUT STILL VOICES"I STILL HURT IN MY BELLY". NO NEEDS OR WANTS VOICED. BED IS LOW,SIDE RAISLX2,CALL LIGHT WITHIN REACH. WILL CONTINUE TO MONITOR
--- NOTE | 2019-11-20 22:36 | NUR ---
PT USED CALL LIGHT AND VOICED"I NEED TO GO TO THE BATHROOM". MIN ASSIST THERE AND BACK TO BED SAFELY. VOIDED 300ML OF YELLOW URINE. PT VOICES"MY STOMACH IS ALITTLE BETTER, IV BEEN PASSING GAS". BED IS LOW,SIDE SIDE RAISLX2,CALL LIGHT WITHIN REACH. WILL CONINTUE TO MONITOR
--- NOTE | 2019-11-20 23:00 | NUR ---
PT IS RESTING IN BED ON RIGHT SIDE. VSS. WAKES EASILY. REASSESSMENT DONE AND WILL DOC IN FLOWSHEET. SHE VOICES THAT HER STOMACH IS SLOWLY GETTING BETTER SINCE LETTING GAS PASS. NO C/O OR NEEDS VOICED. BED IS LOW,SIDE RAISLSX2,CALL LIGHT WITHIN REACH. WILL CONINTUE TO MONITOR
[2019-11-21] VITALS (20 sets, daily range): BP systolic 68–118; BP diastolic 26–53
--- NOTE | 2019-11-21 02:50 | NUR ---
PT IS RESTING IN BED WITH EYES CLOSED. VSS. WAKES EASILY. RE-ASSESSMENT DONE AND WILL DOC IN FLOWSHEET. SHE VOIES"MUCH BETTER" WHEN ASKED IF HER BELLY WAS STILL HURURTING HER. NO NEEDS OR C/O VOICED. SHE DRIFTS BACK TO SLEEP. BED IS LOW,SIDE RAISLX2,CALL LIGHT WITHIN REACH. WILL CONITNUE TO MONITOR
--- NOTE | 2019-11-21 05:11 | NUR ---
PT IS RESTING IN BED WITH EYES CLOSED. VSS. NO NEEDS OR C/O VOICED. BED IS LOW,SIDE RAISLX2,CALL LIGHT WITHIN REACH. WILL CONTINUE TO MONITOR
[2019-11-21 06:20] LABS: BASOPHILS 0.3 % (0-2); EOSINOPHILS 4.8 % (0-7); HEMATOCRIT 26.2 % (36.0-48.0); HEMOGLOBIN 8.3 g/dL (12-16); IMMATURE GRANULOCYTES 0.2 % (0-5); LYMPHOCYTES 15.9 % (15-50); MCH 28.6 pg (26.0-34.0); MCHC 31.7 g/dL (31.0-37.0); MCV 90.3 fL (80.0-100.0); MEAN PLATELET VOLUME 10.4 fL (7.4-10.4); MONOCYTES 13.5 % (2-11); NEUTROPHILS 65.3 % (40-80); PLATELET COUNT 104 10x3/uL (130-400); RDW 15.2 % (11.5-14.5)
[2019-11-21 06:31] LABS: INR 1.13 (0.85-1.17); PROTIME 14.4 SECONDS (11.6-15.0)
[2019-11-21 06:46] LABS: CALC OSMOLALITY 284 mosm/kg (275-300); CALCIUM 8.2 mg/dL (8.5-10.1); CARBON DIOXIDE 28.3 mmol/L (21.0-32.0); CHLORIDE - SERUM 108 mmol/L (98-107); CREATININE - SERUM 0.8 mg/dL (0.6-1.3); GLUCOSE 163 mg/dL (74-106); MAGNESIUM - SERUM 1.6 mg/dL (1.8-2.4); POTASSIUM - SERUM 3.6 mmol/L (3.5-5.1); SODIUM 142 mmol/L (136-145); UREA NITROGEN 7 mg/dL (7-18); eGFR NON AFRICAN AMERICAN 76 mL/min (90-120)
[2019-11-21 06:47] LABS: PHOSPHOROUS 3.6 mg/dL (2.5-4.9)
--- NOTE | 2019-11-21 11:17 | CN ---
PATIENT NAME:CARYN HOLCOMB MEDICAL RECORD: [id number] : 53 LOCATION:[facility] ADMIT DATE: 11/19/19 ACCOUNT: [id number] CONSULTING PHYSICIAN: SILVESTRE FONG MD REFERRING PHYSICIAN: KATIE VENTURA MD DATE OF CONSULTATION: 11/20/2019 CONSULTING PHYSICIAN: Dr. Ventura. REASON FOR CONSULTATION: Medical management on a patient with postoperative TIPS procedure. HISTORY OF PRESENT ILLNESS: The patient is a 64-year-old female with history of hypertensive gastropathy, status post TIPS for portal hypertensive gastropathy and angioectasias involving the GE junction and cardia. She is currently status post Gold Probe cautery in the past. She underwent her procedure. Ammonia level did raise. She was somewhat confused. She was also found to be constipated despite lactulose initiation. The patient dropped her sats in the mid 80s post-procedure and Dr. Trujillo has evaluated the patient. With his impression: Acute hypoxic respiratory failure due to atelectasis, hepatopulmonary syndrome due to portal hypertension, suspected AZUL and possible pulmonary hypertension. An echo has been ordered. She also has history of and recent CTA showed no evidence of pulmonary embolism. She is currently fairly comfortable and alert. Has had 2 bowel movements prior to my seeing her. PAST MEDICAL HISTORY: As above including mild mitral regurgitation, aortic valve sclerosis without stenosis, mild tricuspid regurgitation, morbid obesity, alcoholism, hepatic encephalopathy, alcoholic cirrhosis, diabetic neuropathy, AODM, carpal tunnel syndrome, aortic sclerosis, anemia of gastrointestinal blood loss and iron deficiency anemia. SURGICAL HISTORY: Tonsillectomy, appendectomy, right rotator cuff repair, photocoagulation of gastric mucosa, multiple visits and multiple blood transfusions. Recent TIPS procedure. FAMILY HISTORY: Mother at 73 from neoplasm of the lung, metastatic to the brain. Father at 74 from colon cancer. One sister alive with breast cancer. SOCIAL HISTORY: . Heavy alcohol user for many years, quit a year ago. Nonsmoker. MEDICATIONS: Xifaxan 550 mg p.o. b.i.d., gabapentin 300 mg p.o. at bedtime, trazodone 150 mg p.o. at bedtime p.r.n. sleep, Carafate 1 gram p.o. a.c. meals, Protonix 40 mg p.o. b.i.d. Currently on lactulose 45 cc t.i.d. REVIEW OF SYSTEMS: GENERAL: Admits to being confused yesterday, but is better today. She denies headache. Chronically fatigued. HEENT: No recent visual change, sinus congestion, sore throat, some hearing problems. RESPIRATORY: Mild shortness of breath on exertion. No cough. Denies history of COPD to her knowledge. Remote smoker. CARDIAC: No palpitations. She does have PND, but no orthopnea. She has mild edema in her legs at times she says. Denies chest pain. CONSULT REPORT [id number] ZHANGCARYN SOUSAIL GASTROINTESTINAL: Intermittent nausea, no vomiting. She has been constipated, now her stools are loose and watery. History of alcoholic hepatitis and cirrhosis as mentioned above. MUSCULOSKELETAL: Has arthralgias in the lumbar spine without sciatica. GYNECOLOGIC: No vaginal bleeding. ENDOCRINE: Denies polyuria, polydipsia, heat or cold intolerance. NEUROLOGIC: No history of stroke, TIA, vascular headaches, or seizures. Does have history of hepatic encephalopathy. INTEGUMENT: Bruising easily. PHYSICAL EXAMINATION: GENERAL: A 64-year-old female at this time is fairly alert in the ICU suite. VITAL SIGNS: Her temperature is 98.4, pulse is 81 and regular, respirations are 24, blood pressure 123/55 with a sat 94% on ____. She is on 2 liters of oxygen currently. HEENT:. Her eyes are clear and nonicteric. Oropharynx unremarkable. NECK: Supple, without bruits or masses. CHEST: Distant breath sounds without wheeze or rales. Not retracting. HEART: Regular rate with a III/ aortic systolic murmur. ABDOMEN: Obese, soft, nontender. EXTREMITIES: 2+ pretibial edema of the knees bilaterally. SKIN: Nonicteric. NEUROLOGIC: Oriented to person, place, and time currently. No motor deficits appreciated. Gait was not tested. LABORATORY DATA: H&H is 8.2 and 25.7, on admission it was 9.4 and 29.3, which is her baseline. Platelet count is 87,000. Chemistry: Potassium 3.5, BUN and creatinine are 8 and 0.7, glucose is 158 to 292. Magnesium low at 1.5. Iron low at 13. Ferritin 14. Ammonia 60. Troponin 0.3. ProBNP 2063. Blood gas yesterday showed a pO2 of 48, pCO2 of 39, a pH of 7.40 on room air. Urinalysis; 10-25 white cells, 10-25 epithelial cells, many bacteria. INR is 1.29. Hepatitis screen is negative. Chest x-ray shows enlarged cardiac silhouette, basilar atelectasis, pulmonary CTA shows mixed interstitial opacities in the lung. No evidence of thrombus. ASSESSMENT: 1. Portal hypertension with gastropathy, post-TIPS procedure. 2. Respiratory failure due to hepatopulmonary syndrome with hypoxemia, probable obstructive sleep apnea. 3. Aortic sclerosis, bilateral atelectasis. 4. History of alcoholism, hepatic cirrhosis, encephalopathy, currently symptomatic. 5. Constipation, improved on lactulose. 6. Adult-onset diabetes mellitus with neuropathy. 7. Moderate aortic stenosis. 8. Hypomagnesemia. 9. Bacteriuria. PLAN: Culture urine. Continue lactulose as current which has helped her mentation and constipation. Transfuse if indicated. TRANSINT:[id number] Voice Confirmation ID: [id number] DOCUMENT ID: [id number] CONSULT REPORT [id number] CARYN HOLCOMB TIMOTHY MD at 1117 CC: [id number] DICTATION DATE: 11/20/19 1441 [employer]: 11/21/19 0802 [facility] IN [place] [id number] [place] [id number]
--- NOTE | 2019-11-21 12:35 | NUR ---
PT UP IN CHAIR-L AC REMOVED-REDDENED INFLAMED-C/O PAIN TO SITE-DR FONG AT BEDSIDE-SPOKE WITH PT AND REGARDING PLAN OF CARE-ORDERED IV TO BE LEFT OUT
--- NOTE | 2019-11-21 17:54 | NUR ---
1515-DR LY AT BEDSIDE-SPOKE WITH PT ONLY-
--- NOTE | 2019-11-21 20:00 | NUR ---
ASSITED PT TO BR AND BACK TO BED SAFELY STAND BY ASSIT WITH MINIMAL HELP. SHE HAD LARGE LIQUID BM DARK BROWN IN COLOR. VSS. NO NEEDS OR C/O OF PAIN. BED IS LOW,SIDE RAISLX2,CALL LIGTH WITHIN REACH. WILL CONINTUE TO MONITOR
--- NOTE | 2019-11-21 20:01 | NUR ---
RECIVED REPORT. PT IS SITTING UP IN BED A&OX4, VOICES"NO" TO PAIN OR NEEDS AT THIS TIME. FULL ASSESSMENT WILL BE DONE AND WILL DOC IN FLOWSHEET. SHE IS ORIENTED TO USE OF CALL LIGHT. VSS. NO DISTRESS NOTED. BED IS LOW,SIDE RAISLX2,CALL LIGHT WITHIN REACH. WILL CONITNUE TO MONITOR
--- NOTE | 2019-11-21 23:04 | NUR ---
PT IS RESTING IN BED WITH EYES CLOSD. VSS. NO DISTRESS NOTED. BED IS LOW,SIDE RAISLX2,CALL LIGHT WITHIN REACH. WILL CONINTUE TO MONITOR
--- NOTE | 2019-11-21 23:59 | NUR ---
PT USED CALL LIGHT TO USE BR. VOIDED AND HAD MEDIUM LIQUID BM DARK BROWN IN COLOR. BACK TO BED SAFELY MINIMAL ASSIST. VSS. BED IS LOW,SIDE RAISLX2,CALL LIGHT WITHIN REACH. WILL CONTINUE TO MONITOR
[2019-11-22] VITALS (41 sets, daily range): BP systolic 83–127; BP diastolic 27–53
--- NOTE | 2019-11-22 00:30 | NUR ---
PT VS TOOK AND BP IS 88/27. REPOSITIONED CUFF AND WOKE PT UP WHO IS ALERT, NOT LETHARGIC AND VOICES NO COMPLAINTS. NEW READING READ 73/23. HER HR IS 69. WILL PAGE PCP ON CHART
--- NOTE | 2019-11-22 00:39 | NUR ---
TALKED WITH . INFORMED HIM OF PT STATUS AND HYPOTENSION, PT IS ASYMPTOMATIC. T.O TO RE-START IV AND GIVE 500ML NS BOLUS AND RUN AT 75ML/HR AFTER BOLUS. T.O READ BACK CORRECT.
--- NOTE | 2019-11-22 00:47 | NUR ---
SUCCESSULY GOT 22G IN RIGHT HAND ON FIRST ATTEMP. PT TOELRATED WELL C NO C/O. WILL START 500ML BOLUS OF NS NOW AND THEN 75ML/HR CONTINUOUS. PT IS A&OX4, VOICES NO C/O OR NEEDS. BED IS LEFT LOW,SIDE RAISLX2,CALL LIGTH WITHIN REACH. WILL CONINTUE TO MONITOR
--- NOTE | 2019-11-22 01:24 | NUR ---
PT BP HAS IMPROVED AND IS 102/29, HR71, RR 22 AFTER RECIEVING 500ML NS BOLUS. SHE IS SLIGHTLY LETHARGIC, WAKES AND THEN DRIFTS BACK TO SLEEP. SHE IS A&OX4. HE VOICES NO C/O. I ASKED HER IF SHE HAS TAKEN ANY MEDICATION OTHER THAN WHAT I HAVE GIVEN HER AND SHE VOICES"NO". SHE HAS NO EDEMA, ABD IS SOFT NO TENDERNESS. PULSES ARE 2+ IN UPPER AND LOWER EXTREMITEIS BIALT. WILL CONTINUE TO MONITOR BP.
[2019-11-22 03:13] LABS: BASOPHILS 0.4 % (0-2); EOSINOPHILS 4.2 % (0-7); HEMATOCRIT 26.4 % (36.0-48.0); HEMOGLOBIN 8.5 g/dL (12-16); IMMATURE GRANULOCYTES 0.3 % (0-5); LYMPHOCYTES 14.2 % (15-50); MCH 28.7 pg (26.0-34.0); MCHC 32.2 g/dL (31.0-37.0); MCV 89.2 fL (80.0-100.0); NEUTROPHILS 68.9 % (40-80); PLATELET COUNT 107 10x3/uL (130-400); RBC 2.96 10x6/uL (4.00-5.40); RDW 15.3 % (11.5-14.5); WBC 7.1 10x3/uL (4.8-10.8)
[2019-11-22 03:31] LABS: CALC OSMOLALITY 286 mosm/kg (275-300); CALCIUM 8.1 mg/dL (8.5-10.1); CARBON DIOXIDE 27.8 mmol/L (21.0-32.0); CHLORIDE - SERUM 109 mmol/L (98-107); CREATININE - SERUM 0.8 mg/dL (0.6-1.3); GLUCOSE 126 mg/dL (74-106); POTASSIUM - SERUM 3.3 mmol/L (3.5-5.1); SODIUM 144 mmol/L (136-145); UREA NITROGEN 6 mg/dL (7-18); eGFR NON AFRICAN AMERICAN 76 mL/min (90-120)
--- NOTE | 2019-11-22 04:30 | NUR ---
T.O TO GET ABD NOW
--- NOTE | 2019-11-22 05:00 | NUR ---
TALKED WITH ON THE PHONE AND NOTIFIED OF PT HYPOTENSION EVEN NOW AFTER 500ML NS BOLUS AND 75ML/HR NS CONTINUOS. PT IS NOW MORE LETHARGIC. HR IS 68. ABG'S NO ABNORMALS EXCEPT POTASSIUM 3.3 WHICH HAS BEEN REPLACED PO. T.O TO CONSULT CARDIOLOGY AND TO START ON LEVOPHED IV TO INCREASE MAP ABOVE 65. T.O READ BACK CORRECT.
--- NOTE | 2019-11-22 06:21 | NUR ---
PT BP IS IMPROVING NOW THAT ON LEVOPHED DRIP. VSS. PT IS STILL LETHARGIC BUT AROUSES BY CALLING HER NAME. SHE VOICES "IM GOOD". AND "NO" TO ANY PAIN. BED IS LOW,SIDE RAISLX2,CALL LIGHT WITHIN REACH. WILL CONITNUE TO MONITOR
--- NOTE | 2019-11-22 06:48 | NUR ---
CALLED AFTER HOURS SERVICE TO NOTIFY OF HIS NEW CONSULT
--- NOTE | 2019-11-22 07:45 | NUR ---
5330-DR LUCAS AT BEDSIDE -REVIEWED EVENTS WITH DR LUCAS REGARDING COURSE OF TREATMENT-PLAN REPEAT ECHO CARDIOGRAM-MADE AWARE OF CHEST PAIN COMPLAINT SATURDAY AND SATURDAY-PT HAD NO RECALL
--- NOTE | 2019-11-22 07:59 | NUR ---
LAB AT BEDSIDE
--- NOTE | 2019-11-22 16:05 | NUR ---
[facility] [id number] IN R WRIST-SET TO RUN OVER3.5 HOURS
[2019-11-22 16:40] LABS: ALBUMIN 2.9 g/dL (3.4-5.0); BILIRUBIN - DIRECT 0.39 mg/dL (0.00-0.30); BILIRUBIN - INDIRECT 0.54 mg/dL (0.00-1.00); BILIRUBIN - TOTAL 0.93 mg/dL (0.2-1.3); PROTEIN - SERUM 5.3 g/dL (6.4-8.2)
[2019-11-23] VITALS (33 sets, daily range): BP systolic 77–126; BP diastolic 30–54
[2019-11-23 09:41] LABS: ANION GAP 13.7 mmol/L (8-16); BASOPHILS 0.6 % (0-2); CALCIUM 9.4 mg/dL (8.5-10.1); CARBON DIOXIDE 25.8 mmol/L (21.0-32.0); CREATININE - SERUM 0.9 mg/dL (0.6-1.3); EOSINOPHILS 4.8 % (0-7); IMMATURE GRANULOCYTES 0.4 % (0-5); LYMPHOCYTES 15.1 % (15-50); MCH 28.6 pg (26.0-34.0); MCHC 32.3 g/dL (31.0-37.0); MCV 88.6 fL (80.0-100.0); MEAN PLATELET VOLUME 9.8 fL (7.4-10.4); MONOCYTES 10.4 % (2-11); NEUTROPHILS 68.7 % (40-80); POTASSIUM - SERUM 3.5 mmol/L (3.5-5.1); RDW 15.7 % (11.5-14.5); WBC 7.2 10x3/uL (4.8-10.8)
[2019-11-23 09:43] LABS: HEMATOCRIT 32.5 % (36.0-48.0); HEMOGLOBIN 10.5 g/dL (12-16); PLATELET COUNT 148 10x3/uL (130-400); RBC 3.67 10x6/uL (4.00-5.40)
--- NOTE | 2019-11-23 12:09 | NUR ---
Nutrition Follow-up: POD 5 TIPS. Appetite improving. Ate >50% of breakfast this AM. Diet: Diabetic Wt: 173# (11/22) Last BM: 11/21 Labs noted: Glu 216 Meds noted: Glucophage, NS @ 75, Humulin, KDur, MagOx, Lactulose, Protonix, Carafate -Encourage PO intake and honor food preferences within diet restrictions. -Monitor wt. -RD following.
--- NOTE | 2019-11-23 12:28 | NUR ---
LEVOPHED TURNED OFF. WILL CONTINUE TO MONITOR
--- NOTE | 2019-11-23 13:08 | NUR ---
PT TRANSPORTED TO [facility] 2. TOLERATED WELL. WILL CONTINUE TO MONITOR
--- NOTE | 2019-11-23 13:21 | NUR ---
RECEIVED PT TO ROOM 2111 VIA WHEELCHAIR, PT WAS ABLE TO TRANSFER FROM WHEELCHAIR TO BED WITH STEADY GATE. PT A/O X4, RESP EVEN AND NONLABORED ON RA. RT HAND IV SL. ORIENTED PT TO ROOM AND CALL LIGHT. WILL CONTINUE PLAN OF CARE.
[2019-11-23 13:35] LABS: ALBUMIN 3.3 g/dL (3.4-5.0); BILIRUBIN - DIRECT 0.77 mg/dL (0.00-0.30); BILIRUBIN - INDIRECT 1.48 mg/dL (0.00-1.00); BILIRUBIN - TOTAL 2.25 mg/dL (0.2-1.3); PROTEIN - SERUM 6.1 g/dL (6.4-8.2)
--- NOTE | 2019-11-23 18:36 | NUR ---
PT C/O IV HURTING, IV SITE A LITTLE RED. D/C RT HAND IV WITH CATHETER TIP INTACT, NEW 22G IV STARTED TO RT WRIST IV X1 STICK.
--- NOTE | 2019-11-23 19:00 | NUR ---
EVENING ROUNDS COMPLETE. PT LAYING IN BED. NO SIGNS OF DISTRESS, PT DENIES ANY PAIN OR NEEDS AT THIS TIME. CL IN REACH, BED IN LOWEST POSITION. AAOX4. PT REQUEST FOR STAFF TO CHECK BLOOD PRESSURE IN THE MIDDLE OF THE NIGHT DUE TO HER "BOTTOMING OUT" THE LAST THREE NIGHTS. EXPLAINED TO PT THAT BLUNGER MACHINE OPERATOR WILL TAKE MIDNIGHT VITALS. PT VOICED UNDERSTANDING.
--- NOTE | 2019-11-23 20:24 | MORECARE ---
CASE MANAGEMENT DISCHARGE SUMMARY PATIENT: CARYN HOLCOMB UNIT: [id number] ADM DATE: 11/19/19 AGE: 64 : 54 SEX: F ROOM/BED: D.[facility]2 AUTHOR: VAHID DOYLE PHYSICIAN: REFERRING PHYSICIAN: SILVESTRE FONG MD DATE OF SERVICE: 11/23/19 Discharge Plan Patient Name: CARYN HOLCOMB [facility] : 1955 Planned Disposition: Home Anticipated Discharge Date: Discharge Date: Expected LOS: Initial Reviewer: [email or web address] Initial Review Date: 11/18/2019 Generated: 11/23/19 9:23 pm DCPIA - Discharge Planning Initial Assessment Updated by [email or web address]: Kourtney Centeno on 11/23/19 8:19 pm * Is the patient Alert and Oriented? Yes * How many steps to enter\exit or inside your home? * PCP [facility] * [facility] * Preadmission Environment Home with Family * ADLs Independent * Equipment None * List name and contact numbers for known caregivers / representatives who currently or will assist patient after discharge: KURT HOLCOMB - [phone] * Verbal permission to speak to the caregivers and representatives has been obtained from the patient. Yes * Community resources currently utilized None * Additional services required to return to the preadmission environment? No * Can the patient safely return to the preadmission environment? Yes * Has this patient been hospitalized within the prior 30 days at any hospital? No Patient Name: CARYN HOLCOMB Page [id number] at 2024 All edits/amendments must be made on the electronic document DICTATION DATE: 11/23/192022 CLINICAL GENETICIST: CHACE 11/23/192022 RPT#: [id number] DC DATE: STATUS: ADM IN [facility] [address] [place] [address] END OF REPORT
--- NOTE | 2019-11-23 20:30 | MORECARE ---
CASE MANAGEMENT DISCHARGE SUMMARY PATIENT: CARYN HOLCOMB UNIT: [id number] ADM DATE: 11/19/19 AGE: 64 : 54 SEX: F ROOM/BED: D.2227 AUTHOR: VAHID DOYLE PHYSICIAN: REFERRING PHYSICIAN: SILVESTRE FONG MD DATE OF SERVICE: 11/23/19 Discharge Plan Patient Name: CARYN HOLCOMB Facility: [facility]:[place] : 1955 Planned Disposition: Home Anticipated Discharge Date: Discharge Date: Expected LOS: Initial Reviewer: [email or web address] Initial Review Date: 11/18/2019 Generated: 11/23/19 9:29 pm Comments DCP- Discharge Planning Updated by [email or web address]: Kourtney Centeno on 11/23/19 7:[address] Patient Name: CARYN HOLCOMB Admission Status: Elective Accout number: [id number] Admission Date: 11-19-2019 : 1955 Admission Diagnosis: Attending: SILVESTRE FONG Current LOS: 4 Anticipated DC Date: Planned Disposition: Home Primary Insurance: MEDICARE A & B Discharge Planning Comments: CM met with patient to complete initial dc planning assessment. CM educated patient on the CM role and verbal consent given by patient to complete assessment. Patient lives at home with family. Patient is independent. At discharge patient plans to return home and feels this is a safe discharge. CM discussed availability of home health, rehab services, and medical equipment. Patient will have family to transport home. Patient denied known discharge needs at this time. CM will continue to follow and will assist as needed with dc plans/needs. Security Officers And Guards: Kourtney Centeno DCPIA - Discharge Planning Initial Assessment Updated by [email or web address]: Kourtney Centeno on 11/23/19 8:19 pm * Is the patient Alert and Oriented? Yes * How many steps to enter\exit or inside your home? * PCP [place] * [facility] * Preadmission Environment Home with Family * ADLs Independent * Equipment None * List name and contact numbers for known caregivers / representatives who currently or will assist patient after discharge: KURT HOLCOMB - [phone] * Verbal permission to speak to the caregivers and representatives has been obtained from the patient. Yes * Community resources currently utilized None * Additional services required to return to the preadmission environment? No * Can the patient safely return to the preadmission environment? Yes * Has this patient been hospitalized within the prior 30 days at any hospital? No Last DP export: 11/23/19 7:24 p Patient Name: CARYN HOLCOMB Page 94818 at 2030 All edits/amendments must be made on the electronic document DICTATION DATE: 11/23/192029 DEAF/HARD OF HEARING SPECIALIST: CHACE 11/23/192029 RPT#: [id number] DC DATE: STATUS: ADM IN [facility] [address] [place] [address] END OF REPORT
[2019-11-24] VITALS: BP 92/47
[2019-11-24 04:00] VITALS: BP 90/41
[2019-11-24 06:44] LABS: HEMATOCRIT 28.2 % (36.0-48.0); MCH 28.1 pg (26.0-34.0); MCHC 31.9 g/dL (31.0-37.0); MCV 88.1 fL (80.0-100.0); MEAN PLATELET VOLUME 10.3 fL (7.4-10.4); RDW 15.9 % (11.5-14.5)
[2019-11-24 06:52] LABS: PLATELET COUNT 117 10x3/uL (130-400); WBC 5.3 10x3/uL (4.8-10.8)
[2019-11-24 07:33] LABS: ALBUMIN 2.8 g/dL (3.4-5.0); BILIRUBIN - DIRECT 0.56 mg/dL (0.00-0.30); BILIRUBIN - INDIRECT 0.96 mg/dL (0.00-1.00); BILIRUBIN - TOTAL 1.52 mg/dL (0.2-1.3); PROTEIN - SERUM 5.3 g/dL (6.4-8.2)
[2019-11-24 07:58] VITALS: BP 104/42
[2019-11-24 08:08] LABS: EOSINOPHILS 3 % (0-7); LYMPHOCYTES 16 % (15-50); MONOCYTES 11 % (2-11); NEUTROPHILS 69 % (40-80); PLATELET ESTIMATE DECREASED
--- NOTE | 2019-11-24 09:26 | NUR ---
INFORMED PT NOTHING TO EAT OR DRINK FOR US ORDERED.
--- NOTE | 2019-11-24 10:52 | NUR ---
UP WITH PT ASSIST. B/P 104/40 SITTING UP TO CHAIR.
[2019-11-24 11:40] VITALS: BP 104/40
[2019-11-24 15:21] VITALS: BP 104/42
--- NOTE | 2019-11-24 19:10 | NUR ---
ROUNDING REPORT DONE AND PT DENIES NEEDS BED LOW AND LOCKED VISITOR WITH PT CALL LIGHT IS OUT OF REACH BUT PT ASKED THAT I PLACE IT BACK WHERE SHE HAD IT
[2019-11-24 21:41] VITALS: BP 111/46
[2019-11-25 04:00] VITALS: BP 96/51
[2019-11-25 06:23] LABS: BASOPHILS 0.3 % (0-2); EOSINOPHILS 6.5 % (0-7); HEMATOCRIT 32.5 % (36.0-48.0); HEMOGLOBIN 10.3 g/dL (12-16); IMMATURE GRANULOCYTES 0.5 % (0-5); LYMPHOCYTES 21.6 % (15-50); MCHC 31.7 g/dL (31.0-37.0); MCV 88.3 fL (80.0-100.0); MEAN PLATELET VOLUME 10.5 fL (7.4-10.4); MONOCYTES 12.1 % (2-11); PLATELET COUNT 96 10x3/uL (130-400); RBC 3.68 10x6/uL (4.00-5.40); RDW 15.9 % (11.5-14.5)
[2019-11-25 06:35] LABS: ALBUMIN 2.7 g/dL (3.4-5.0); ALKALINE PHOSPHATASE 83 U/L (30-120); ALT (SGPT) 27 U/L (10-68); BILIRUBIN - DIRECT 0.51 mg/dL (0.00-0.30); BILIRUBIN - INDIRECT 0.87 mg/dL (0.00-1.00); BILIRUBIN - TOTAL 1.38 mg/dL (0.2-1.3); CALCIUM 8.1 mg/dL (8.5-10.1); CARBON DIOXIDE 25.9 mmol/L (21.0-32.0); CHLORIDE - SERUM 110 mmol/L (98-107); CREATININE - SERUM 0.8 mg/dL (0.6-1.3); POTASSIUM - SERUM 3.6 mmol/L (3.5-5.1); PROTEIN - SERUM 5.6 g/dL (6.4-8.2); SODIUM 145 mmol/L (136-145); eGFR NON AFRICAN AMERICAN 76 mL/min (90-120)
[2019-11-25 06:37] LABS: CALC OSMOLALITY 286 mosm/kg (275-300); GLUCOSE 99 mg/dL (74-106); UREA NITROGEN 8 mg/dL (7-18)
[2019-11-25] MEDS ORDERED: GLUCOPHAGE500 MG PO (07:28)
[2019-11-25] MEDS ORDERED: MIDODRINE HCL5 MG PO (07:37)
[2019-11-25] MEDS ORDERED: CHRONULAC30 ML PO (07:38)
--- NOTE | 2019-11-25 08:09 | MORECARE ---
CASE MANAGEMENT DISCHARGE SUMMARY PATIENT: CARYN HOLCOMB UNIT: [id number] ADM DATE: 11/19/19 AGE: 64 : 53 SEX: F ROOM/BED: D.0904 AUTHOR: VAHID DOYLE PHYSICIAN: REFERRING PHYSICIAN: SILVESTRE FONG MD DATE OF SERVICE: 11/25/19 Discharge Plan Patient Name: CARYN HOLCOMB Facility: [facility]:[place] : 1955 Planned Disposition: Home Anticipated Discharge Date: Discharge Date: Expected LOS: Initial Reviewer: [email or web address] Initial Review Date: 11/18/2019 Generated: 11/25/19 9:08 am Comments DCP- Discharge Planning Updated by [email or web address]: Dottie Villafana on 11/25/19 7:[address] Patient Name: CARYN HOLCOMB Encounter No: [id number] : 1955 Primary Insurance: MEDICARE A & B Anticipated DC Date: Planned Disposition: Home External Planned Provider: : DCP follow-up note:CM met with patient to complete final dc planning assessment. CM discussed availability of home health, rehab services, and medical equipment. Patient denied known discharge needs at this time. Declination signed for Home Health. Transportation provider at discharge will be her . DC IMM delivered, explained, signed by the patient, and placed in chart. Signed form also left with the patient. Patient and family in agreement with discharge plan. No changes to plan. Case management will follow and assist as needed. Dottie Villafana DCP- Discharge Planning Updated by [email or web address]: Kourtney Centeno on 11/23/19 7:[address] Patient Name: CARYN HOLCOMB Admission Status: Elective Accout number: [id number] Admission Date: 11-19-2019 : 1955 Admission Diagnosis: Attending: SILVESTRE FONG Current LOS: 4 Anticipated DC Date: Planned Disposition: Home Primary Insurance: MEDICARE A & B Discharge Planning Comments: CM met with patient to complete initial dc planning assessment. CM educated patient on the CM role and verbal consent given by patient to complete assessment. Patient lives at home with family. Patient is independent. At discharge patient plans to return home and feels this is a safe discharge. CM discussed availability of home health, rehab services, and medical equipment. Patient will have family to transport home. Patient denied known discharge needs at this time. CM will continue to follow and will assist as needed with dc plans/needs. Electronic News Gathering Camera Person: Kourtney Furr DCPIA - Discharge Planning Initial Assessment Updated by [email or web address]: Kourtney Centeno on 11/23/19 8:19 pm * Is the patient Alert and Oriented? Yes * How many steps to enter\exit or inside your home? * PCP [facility] * [facility] * Preadmission Environment Home with Family * ADLs Independent * Equipment None * List name and contact numbers for known caregivers / representatives who currently or will assist patient after discharge: KURT HOLCOMB - [phone] * Verbal permission to speak to the caregivers and representatives has been obtained from the patient. Yes * Community resources currently utilized None * Additional services required to return to the preadmission environment? No * Can the patient safely return to the preadmission environment? Yes * Has this patient been hospitalized within the prior 30 days at any hospital? No Coverage Notice Reviewer: [email or web address] Nguyen Villafana Notice Issued Date-Time: 11/25/2019 8:00 Notice Type: Patient Choice Letter Notice Delivered To: Patient Relationship to Patient: Registered Public Surveyor Name: Delivery Method: HAND - Hand Delivered Aliyah Days: Prior Verbal Notification: Yes Recipient Understood Notice: Recipient Signature: Yes Med Rec Note Co-signed by Attending: Coverage Notice Comment: declined hh Reviewer: [id number] Nguyen Villafana Notice Issued Date-Time: 11/25/2019 8:00 Notice Type: IM Discharge Notice Notice Delivered To: Patient Relationship to Patient: Registered Public Surveyor Name: Delivery Method: HAND - Hand Delivered Aliyah Days: Prior Verbal Notification: Yes Recipient Understood Notice: Recipient Signature: Yes Med Rec Note Co-signed by Attending: Coverage Notice Comment: DC IMM delivered, explained, signed by the patient, and placed in chart. Signed form also left with the patient. Last DP export: 11/23/19 7:30 p Patient Name: CARYN HOLCOMB Page 99316 at 0809 All edits/amendments must be made on the electronic document DICTATION DATE: 11/25/19807 DESULFURIZER MACHINE: CHACE 11/25/19807 RPT#: [id number] DC DATE: STATUS: ADM IN [facility] [address] [place] [address] END OF REPORT
--- NOTE | 2019-11-25 10:28 | NUR ---
PATIENT SHOWERED THIS MORNING, IV REMOVED IN ANTICIPATION OF DISCHARGE HOME. SITTING AT BEDSIDE.
--- NOTE | 2019-11-25 11:43 | NUR ---
DISCHARGE INSTRUCTIONS WITH PATIENT AND , ANY AND ALL QUESTIONS ANSWERED. PATIENT TO WAITING CAR VIA WHEELCHAIR IN STABLE CONDITION.
--- NOTE | 2019-11-25 21:17 | MORECARE ---
CASE MANAGEMENT DISCHARGE SUMMARY PATIENT: CARYN HOLCOMB UNIT: [id number] ADM DATE: 11/19/19 AGE: 64 : 53 SEX: F ROOM/BED: D.8999 AUTHOR: VAHID DOYLE PHYSICIAN: REFERRING PHYSICIAN: SILVESTRE FONG MD DATE OF SERVICE: 11/25/19 Discharge Plan Patient Name: CARYN HOLCOMB Facility: [facility]:[place] : 1955 Planned Disposition: Home Anticipated Discharge Date: Discharge Date: 11/25/2019 Expected LOS: Initial Reviewer: [id number] Initial Review Date: 11/18/2019 Generated: 11/25/19 10:17 pm Comments DCP- Discharge Planning Updated by [email or web address]: Dottie Villafana on 11/25/19 7:[address] Patient Name: CARYN HOLCOMB Encounter No: [id number] : 1955 Primary Insurance: MEDICARE A & B Anticipated DC Date: Planned Disposition: Home External Planned Provider: : DCP follow-up note:CM met with patient to complete final dc planning assessment. CM discussed availability of home health, rehab services, and medical equipment. Patient denied known discharge needs at this time. Declination signed for Home Health. Transportation provider at discharge will be her . DC IMM delivered, explained, signed by the patient, and placed in chart. Signed form also left with the patient. Patient and family in agreement with discharge plan. No changes to plan. Case management will follow and assist as needed. Dottie Villafana DCP- Discharge Planning Updated by [email or web address]: Kourtney Centeno on 11/23/19 7:[address] Patient Name: CARYN HOLCOMB Admission Status: Elective Accout number: [id number] Admission Date: 11-19-2019 : 1955 Admission Diagnosis: Attending: SILVESTRE FONG Current LOS: 4 Anticipated DC Date: Planned Disposition: Home Primary Insurance: MEDICARE A & B Discharge Planning Comments: CM met with patient to complete initial dc planning assessment. CM educated patient on the CM role and verbal consent given by patient to complete assessment. Patient lives at home with family. Patient is independent. At discharge patient plans to return home and feels this is a safe discharge. CM discussed availability of home health, rehab services, and medical equipment. Patient will have family to transport home. Patient denied known discharge needs at this time. CM will continue to follow and will assist as needed with dc plans/needs. Taper Printed Circuit Layout: Kourtneycathy Joshualisa MOSLEY - Discharge Planning Initial Assessment Updated by [email or web address]: Kourtney Centeno on 11/23/19 8:19 pm * Is the patient Alert and Oriented? Yes * How many steps to enter\exit or inside your home? * PCP TAJIK * [facility] * Preadmission Environment Home with Family * ADLs Independent * Equipment None * List name and contact numbers for known caregivers / representatives who currently or will assist patient after discharge: KURT ZHANG - [phone] * Verbal permission to speak to the caregivers and representatives has been obtained from the patient. Yes * Community resources currently utilized None * Additional services required to return to the preadmission environment? No * Can the patient safely return to the preadmission environment? Yes * Has this patient been hospitalized within the prior 30 days at any hospital? No Coverage Notice Reviewer: [id number] Nguyen Villafana Notice Issued Date-Time: 11/25/2019 8:00 Notice Type: Patient Choice Letter Notice Delivered To: Patient Relationship to Patient: Electrical Engineering Teacher Name: Delivery Method: HAND - Hand Delivered Aliyah Days: Prior Verbal Notification: Yes Recipient Understood Notice: Recipient Signature: Yes Med Rec Note Co-signed by Attending: Coverage Notice Comment: declined hh Reviewer: [email or web address] Nguyen Villafana Notice Issued Date-Time: 11/25/2019 8:00 Notice Type: IM Discharge Notice Notice Delivered To: Patient Relationship to Patient: Electrical Engineering Teacher Name: Delivery Method: HAND - Hand Delivered Aliyah Days: Prior Verbal Notification: Yes Recipient Understood Notice: Recipient Signature: Yes Med Rec Note Co-signed by Attending: Coverage Notice Comment: DC IMM delivered, explained, signed by the patient, and placed in chart. Signed form also left with the patient. Last DP export: 11/25/19 7:09 a Patient Name: CARYN HOLCOMB Page 65274 at 2116 All edits/amendments must be made on the electronic document DICTATION DATE: 11/25/192116 REHABILITATION NURSE: CHACE 11/25/192116 RPT#: [id number] DC DATE:11/25/19 STATUS: DIS IN [place] [id number] [place] [address] END OF REPORT
== END 2019-11-25 11:44 | disposition home or self-care (01) | DRG 405 ==
LOC: OBSVTIME → D.SP 09:56 → EDSTATUS 13:00 → OBSVTIME 14:39 → D.CVICU 14:39 → D.SP 16:14 → D.CVICU 16:15 → OBSVTIME 20:23 → D.CVICU 21:29 → D.M2 11-19 12:11 → D.CVICU 11-19 14:00 → D.M2 11-23 13:04
PROVIDERS: General Practice; Internal Medicine Pulmonary Disease; Radiology Diagnostic Radiology; ADMIT Family Medicine; ATTEND Family Medicine
PROC: 06183J4 Bypass Portal Vein to Hepatic Vein with Synthetic Substitute, Percutaneous Approach (ICD-10-PCS; principal; 2019-11-18 13:00)
DX: K76.6 Portal hypertension (principal); I85.11 Secondary esophageal varices with bleeding; J96.01 Acute respiratory failure with hypoxia; J98.11 Atelectasis; K31.89 Other diseases of stomach and duodenum; D50.9 Iron deficiency anemia, unspecified; E11.40 Type 2 diabetes mellitus with diabetic neuropathy, unspecified; G56.00 Carpal tunnel syndrome, unspecified upper limb; I70.0 Atherosclerosis of aorta; K59.00 Constipation, unspecified; E83.42 Hypomagnesemia; K70.30 Alcoholic cirrhosis of liver without ascites; I95.9 Hypotension, unspecified; K72.90 Hepatic failure, unspecified without coma

== ENCOUNTER 2019-12-13 14:55 | Inpatient (IN) | payer MEDICARE, BC ==
[~2019-12-13] VITALS: Ht 157.5 cm; Wt 79.4 kg
[~2019-12-13 14:55] MED LIST changes: +GLUCOPHAGE500 MG PO; +MIDODRINE HCL5 MG PO
[2019-12-13] MEDS ORDERED: [UNRECOGNIZED DRUG - REMARK] (15:43)
[2019-12-13 16:14] LABS: BASOPHILS 0.4 % (0-2); EOSINOPHILS 1.8 % (0-7); HEMATOCRIT 24.4 % (36.0-48.0); HEMOGLOBIN 7.7 g/dL (12-16); IMMATURE GRANULOCYTES 0.4 % (0-5); LYMPHOCYTES 14.4 % (15-50); MCH 29.2 pg (26.0-34.0); MCHC 31.6 g/dL (31.0-37.0); MCV 92.4 fL (80.0-100.0); MEAN PLATELET VOLUME 10.2 fL (7.4-10.4); MONOCYTES 5.4 % (2-11); NEUTROPHILS 77.6 % (40-80); PLATELET COUNT 76 10x3/uL (130-400); RBC 2.64 10x6/uL (4.00-5.40); RDW 19.2 % (11.5-14.5); WBC 5.5 10x3/uL (4.8-10.8)
[2019-12-13 16:24] LABS: APTT 36.5 SECONDS (22.8-39.4); INR 1.4 (0.85-1.17); PROTIME 17.1 SECONDS (11.6-15.0)
[2019-12-13 16:41] LABS: ANION GAP 17.9 mmol/L (8-16); CALCIUM 9.5 mg/dL (8.5-10.1); CARBON DIOXIDE 21.9 mmol/L (21.0-32.0); CREATININE - SERUM 1.1 mg/dL (0.6-1.3); PLATELET ESTIMATE DECREASED; POTASSIUM - SERUM 4.8 mmol/L (3.5-5.1)
[2019-12-13 16:44] LABS: BILIRUBIN - TOTAL 1.87 mg/dL (0.2-1.3); PROTEIN - SERUM 5.9 g/dL (6.4-8.2)
[2019-12-13 18:06] LABS: BILIRUBIN - DIRECT 0.67 mg/dL (0.00-0.30)
--- NOTE | 2019-12-13 18:26 | NUR ---
BLOOD TRANSFUSION GOING IN AT THIS TIME.
[2019-12-13 19:00] VITALS: BP 122/85
[2019-12-13 19:21] LABS: BILIRUBIN - INDIRECT 1.2 mg/dL (0.00-1.00)
--- NOTE | 2019-12-13 19:45 | NUR ---
#1 BLOOD TRANSFUSION COMPLETE
[2019-12-13 20:00] VITALS: BP 140/50
[2019-12-13 21:00] VITALS: BP 115/41
--- NOTE | 2019-12-13 21:37 | NUR ---
PT UP TO BATHROOM AT THIS TIME. AT BEDSIDE.
[2019-12-13] MEDS ORDERED: NEURONTIN600 MG PO (21:59)
[2019-12-13 22:00] VITALS: BP 116/46
--- NOTE | 2019-12-13 22:17 | NUR ---
BLOOD TRANSFUSION # 2 DONE
[2019-12-13 23:00] VITALS: BP 112/45
--- NOTE | 2019-12-13 23:17 | NUR ---
LR BOLUS DONE
[2019-12-13 23:18] LABS: BASOPHILS 0.5 % (0-2); EOSINOPHILS 2.8 % (0-7); HEMATOCRIT 28.7 % (36.0-48.0); HEMOGLOBIN 8.9 g/dL (12-16); IMMATURE GRANULOCYTES 0.4 % (0-5); LYMPHOCYTES 19.5 % (15-50); MCH 27.9 pg (26.0-34.0); MEAN PLATELET VOLUME 11.3 fL (7.4-10.4); MONOCYTES 6.9 % (2-11); NEUTROPHILS 69.9 % (40-80); PLATELET COUNT 66 10x3/uL (130-400); RBC 3.19 10x6/uL (4.00-5.40); RDW 20.4 % (11.5-14.5); WBC 5.6 10x3/uL (4.8-10.8)
--- NOTE | 2019-12-13 23:52 | NUR ---
DR JOSETTE DUVALL.
[2019-12-14] VITALS (10 sets, daily range): BP systolic 95–146; BP diastolic 41–81
--- NOTE | 2019-12-14 03:35 | NUR ---
PT UP TO BATHROOM URINE X 1 DENIES COMPLAINTS
--- NOTE | 2019-12-14 04:50 | NUR ---
PT UP TO BATHROOOM URINE X1. DENIES BM SINCE LAST NIGHT BEFORE 7P
--- NOTE | 2019-12-14 07:10 | NUR ---
PT REPORT FROM NARAYAN FERNANDO
[2019-12-14 07:11] LABS: INR 1.45 (0.85-1.17); PROTIME 17.5 SECONDS (11.6-15.0)
[2019-12-14 07:40] LABS: HEMATOCRIT 26.8 % (36.0-48.0); HEMOGLOBIN 8.5 g/dL (12-16); IMMATURE GRANULOCYTES 0.5 % (0-5); LYMPHOCYTES 24.5 % (15-50); MCH 28.4 pg (26.0-34.0); MCHC 31.7 g/dL (31.0-37.0); MCV 89.6 fL (80.0-100.0); MONOCYTES 8.1 % (2-11); NEUTROPHILS 61.9 % (40-80); PLATELET COUNT 55 10x3/uL (130-400); RBC 2.99 10x6/uL (4.00-5.40); WBC 4.2 10x3/uL (4.8-10.8)
[2019-12-14 08:13] LABS: CALC OSMOLALITY 286 mosm/kg (275-300); CALCIUM 8.3 mg/dL (8.5-10.1); CARBON DIOXIDE 26.4 mmol/L (21.0-32.0); CHLORIDE - SERUM 109 mmol/L (98-107); GLUCOSE 108 mg/dL (74-106); SODIUM 142 mmol/L (136-145); UREA NITROGEN 21 mg/dL (7-18)
[2019-12-14 08:15] LABS: CREATININE - SERUM 0.8 mg/dL (0.6-1.3); POTASSIUM - SERUM 3.9 mmol/L (3.5-5.1); eGFR NON AFRICAN AMERICAN 76 mL/min (90-120)
--- NOTE | 2019-12-14 09:08 | NUR ---
iv sited to left wrist, x 1 attempt, pt tata well
--- NOTE | 2019-12-14 09:10 | NUR ---
consents signed and pt educated on precdure. pt denies questions or concerns
--- NOTE | 2019-12-14 12:47 | MORECARE ---
CASE MANAGEMENT DISCHARGE SUMMARY PATIENT: CARYN HOLCOMB UNIT: [id number] ADM DATE: 12/13/19 AGE: 64 : 53 SEX: F ROOM/BED: D.E14 AUTHOR: VAHID DOYLE PHYSICIAN: REFERRING PHYSICIAN: AYESHA WHITING MD DATE OF SERVICE: 12/14/19 Discharge Plan Patient Name: CARYN HOLCOMB Facility: [facility]:[place] : 1955 Planned Disposition: Home Anticipated Discharge Date: Discharge Date: Expected LOS: Initial Reviewer: [email or web address] Initial Review Date: 12/13/2019 Generated: 12/14/19 1:46 pm Patient Name: CARYN HOLCOMB Page 31683 at 1247 All edits/amendments must be made on the electronic document DICTATION DATE: 12/14/19 1247 BEEF SELECTOR: CHACE 12/14/19 1247 RPT#: [id number] DC DATE: STATUS: ADM IN [facility] [address] [place] [address] END OF REPORT
--- NOTE | 2019-12-14 13:06 | MORECARE ---
CASE MANAGEMENT DISCHARGE SUMMARY PATIENT: CARYN GODOY UNIT: [id number] ADM DATE: 12/13/19 AGE: 64 : 53 SEX: F ROOM/BED: D.E14 AUTHOR: VAHID DOYLE PHYSICIAN: REFERRING PHYSICIAN: AYESHA WHITING MD DATE OF SERVICE: 12/14/19 Discharge Plan Patient Name: CARYN GODOY Facility: [facility]:[place] : 1955 Planned Disposition: Home Anticipated Discharge Date: Discharge Date: Expected LOS: Initial Reviewer: [email or web address] Initial Review Date: 12/13/2019 Generated: 12/14/19 2:05 pm Comments DCP- Discharge Planning Updated by [email or web address]: Janett Matthews on 12/14/19 12:[address] CM met wit patient and spouse, Dinh Godoy ([phone]), regarding DC needs/plans. Patient is alert/oriented, in agreement to interview. States, she lives independently with her spouse and [id number]. PCP: Dr. Ha. [facility] States she has been able to obtain all prescribed medications and her picks them up for her. DME: Shower chair. CM discussed HHS, SNF, Rehab. Patient and spouse deny need for any assistance. Spouse will drive patient home upon DC. CM will assist with DC/needs PRN. Last DP export: 12/14/19 11:47 a Patient Name: CARYN GODOY Page 17079 at 1306 All edits/amendments must be made on the electronic document DICTATION DATE: 12/14/19 1305 TYPESETTING MACHINE TENDER: CHACE 12/14/19 1305 RPT#: [id number] DC DATE: STATUS: ADM IN [facility] [address] [place] [address] END OF REPORT
--- NOTE | 2019-12-14 19:00 | NUR ---
BEDSIDE REPORT RECEIVED AND CARE OF PT ASSUMED. PT LYING IN SUPINE POSITION WATCHING TV. IV TO LEFT HAND PATENT WITH NS INFUSING AT 75 ML/HR; AND PROTONIX DRIP INFUSING AT 10 ML/HR. WILL MONITOR FOR NEEDS.
[2019-12-14 19:07] LABS: BASOPHILS 0.8 % (0-2); EOSINOPHILS 3.3 % (0-7); HEMATOCRIT 31.4 % (36.0-48.0); IMMATURE GRANULOCYTES 0.5 % (0-5); LYMPHOCYTES 17.9 % (15-50); MCH 28.3 pg (26.0-34.0); MCHC 31.8 g/dL (31.0-37.0); MEAN PLATELET VOLUME 10.6 fL (7.4-10.4); MONOCYTES 8.2 % (2-11); NEUTROPHILS 69.3 % (40-80); PLATELET COUNT 51 10x3/uL (130-400); RBC 3.53 10x6/uL (4.00-5.40); RDW 19.6 % (11.5-14.5); WBC 3.6 10x3/uL (4.8-10.8)
--- NOTE | 2019-12-14 20:40 | NUR ---
HS MEDICATIONS GIVEN TO INCLUDE DESERYL PER PRN ORDER, PER REQUEST. WILL CONTINUE TO MONITOR FOR NEEDS.
--- NOTE | 2019-12-15 02:45 | NUR ---
HEARD PT CALLING OUT FOR NURSE...UPON ENTERING ROOM FOUND PT SITTING ON THE FLOOR BETWEEN THE BED AND BATHROOM. STATES SHE WENT TO THE RESTROOM AND LOST HER BALANCE RETURNING TO BED. PT HAS ABRASION ON HER LEFT UPPER THIGH / HIP AREA. VITALS STABLE. PT STATES SHE IS IN NO PAIN AND "FEELS FINE". CHANGED SHEETS BOTTOM SHEET WET FROM URINE. POSITIONED IN BED FOR COMFORT. YELLOW BAND PLACED ON PT. AUSTYN ALARM PLACED ON BED. GRIPPER SOCKS PLACED ON BOTH FEET....PT HAD HER RUBBER FLIP FLOPS ON WHEN GOING TO RESTROOM.
[2019-12-15 04:00] VITALS: BP 128/55
[2019-12-15 06:54] LABS: BASOPHILS 0.5 % (0-2); EOSINOPHILS 3.6 % (0-7); HEMATOCRIT 30.2 % (36.0-48.0); HEMOGLOBIN 9.6 g/dL (12-16); IMMATURE GRANULOCYTES 0.5 % (0-5); LYMPHOCYTES 13.1 % (15-50); MCH 28.3 pg (26.0-34.0); MCHC 31.8 g/dL (31.0-37.0); MCV 89.1 fL (80.0-100.0); MEAN PLATELET VOLUME 10.6 fL (7.4-10.4); MONOCYTES 8.3 % (2-11); PLATELET COUNT 51 10x3/uL (130-400); RBC 3.39 10x6/uL (4.00-5.40); RDW 20.1 % (11.5-14.5); WBC 4.1 10x3/uL (4.8-10.8)
[2019-12-15 07:34] LABS: CALC OSMOLALITY 289 mosm/kg (275-300); CALCIUM 8.4 mg/dL (8.5-10.1); CHLORIDE - SERUM 111 mmol/L (98-107); CREATININE - SERUM 0.8 mg/dL (0.6-1.3); GLUCOSE 157 mg/dL (74-106); POTASSIUM - SERUM 3.8 mmol/L (3.5-5.1); SODIUM 144 mmol/L (136-145); UREA NITROGEN 13 mg/dL (7-18); eGFR NON AFRICAN AMERICAN 76 mL/min (90-120)
[2019-12-15 08:25] VITALS: BP 110/47
--- NOTE | 2019-12-15 09:00 | NUR ---
ASSESSMENT PER FLOW SHEET. PATIENT IS WITHOUT DISTRESS.CALL LIGHT IN REACH. AUSTYN MAT ON.
[2019-12-15 12:22] VITALS: BP 108/46
[2019-12-15 12:55] LABS: PLATELET ESTIMATE DECREASED
[2019-12-15 12:57] LABS: ANISOCYTOSIS OCC; SMUDGE CELLS OCC
[2019-12-15 16:07] VITALS: Ht 157.5 cm; Wt 79.4 kg
[2019-12-15 20:00] VITALS: BP 99/49
--- NOTE | 2019-12-15 23:41 | NUR ---
I have reviewed this patient and I concur with the Shift Assessment completed by the Licensed Practical Nurse today this shift.
[2019-12-16 04:00] VITALS: BP 103/46
[2019-12-16 07:01] LABS: BASOPHILS 0.5 % (0-2); EOSINOPHILS 3.7 % (0-7); HEMATOCRIT 32.5 % (36.0-48.0); HEMOGLOBIN 10.4 g/dL (12-16); IMMATURE GRANULOCYTES 0.3 % (0-5); LYMPHOCYTES 24.1 % (15-50); MCH 28.8 pg (26.0-34.0); MEAN PLATELET VOLUME 10.8 fL (7.4-10.4); MONOCYTES 10.2 % (2-11); NEUTROPHILS 61.2 % (40-80); PLATELET COUNT 54 10x3/uL (130-400); RBC 3.61 10x6/uL (4.00-5.40); RDW 19.9 % (11.5-14.5); WBC 3.8 10x3/uL (4.8-10.8)
[2019-12-16 07:38] LABS: ANION GAP 11.5 mmol/L (8-16); CALCIUM 8.2 mg/dL (8.5-10.1); CARBON DIOXIDE 26.8 mmol/L (21.0-32.0); CREATININE - SERUM 0.9 mg/dL (0.6-1.3); POTASSIUM - SERUM 3.3 mmol/L (3.5-5.1)
--- NOTE | 2019-12-16 08:06 | NUR ---
ASSESSMENT PER FLOW SHEET. PATIET UP TO BATHROOM AND THEN TO CHAIR. ALERT AN TALKING THIS AM. FALL PREVENION IN PLACE WITH AUSTYN MATS.CALL LIGHT IN REACH. DOOR OPEN TO MONITOR
[2019-12-16 09:58] VITALS: BP 151/51
[2019-12-16 12:47] VITALS: BP 99/45
[2019-12-16 18:06] VITALS: BP 109/44
[2019-12-16] MEDS ORDERED: PROTONIX40 MG PO (18:49)
--- NOTE | 2019-12-16 18:54 | NUR ---
DR FONG HERE TO SEE PATIENT. SHE WILL DC HOME THIS AFTERNOON.
--- NOTE | 2019-12-17 09:23 | MORECARE ---
CASE MANAGEMENT DISCHARGE SUMMARY PATIENT: CARYN GODOY UNIT: [id number] ADM DATE: 12/13/19 AGE: 64 : 53 SEX: F ROOM/BED: D.2220 AUTHOR: VAHID DOYLE PHYSICIAN: REFERRING PHYSICIAN: AYESHA WHITING MD DATE OF SERVICE: 12/17/19 Discharge Plan Patient Name: CARYN GODOY Facility: [facility]:[place] : 1955 Planned Disposition: Home Anticipated Discharge Date: Discharge Date: 12/16/2019 Expected LOS: Initial Reviewer: [email or web address] Initial Review Date: 12/13/2019 Generated: 12/17/19 10:22 am Comments DCP- Discharge Planning Updated by [email or web address]: Janett Matthews on 12/14/19 12:[address] CM met wit patient and spouse, Dinh Godoy ([phone]), regarding DC needs/plans. Patient is alert/oriented, in agreement to interview. States, she lives independently with her spouse and [id number]. PCP: Dr. Ha. [facility] States she has been able to obtain all prescribed medications and her picks them up for her. DME: Shower chair. CM discussed HHS, SNF, Rehab. Patient and spouse deny need for any assistance. Spouse will drive patient home upon DC. CM will assist with DC/needs PRN. Last DP export: 12/14/19 12:06 p Patient Name: CARYN GODOY Page [phone] at 0923 All edits/amendments must be made on the electronic document DICTATION DATE: 12/17/19921 MICA PASTER: CHACE 12/17/19921 RPT#: [id number] DC DATE:12/16/19 STATUS: DIS IN [place] [address] [place] [address] END OF REPORT
== END 2019-12-16 20:00 | disposition home or self-care (01) | DRG 378 ==
LOC: D.ER 14:55 → D.MS 20:21 → D.EDHOLD 20:21 → D.MS 12-14 15:03
PROVIDERS: Family Medicine; Internal Medicine Gastroenterology; ADMIT Family Medicine; ATTEND Family Medicine
PROC: 0W3P8ZZ Control Bleeding in Gastrointestinal Tract, Via Natural or Artificial Opening Endoscopic (ICD-10-PCS; principal; 2019-12-14 15:00)
DX: K25.4 Chronic or unspecified gastric ulcer with hemorrhage (principal); K76.6 Portal hypertension; D62 Acute posthemorrhagic anemia; K72.90 Hepatic failure, unspecified without coma; K70.10 Alcoholic hepatitis without ascites; I95.9 Hypotension, unspecified; E11.9 Type 2 diabetes mellitus without complications; I35.0 Nonrheumatic aortic (valve) stenosis; K70.30 Alcoholic cirrhosis of liver without ascites

== ENCOUNTER 2020-01-08 12:21 | Outpatient (CLI) | payer MEDICARE, BC ==
[~2020-01-08] VITALS: Ht 157.5 cm; Wt 78.6 kg
[~2020-01-08 12:21] MED LIST changes: +NEURONTIN600 MG PO; +[UNRECOGNIZED DRUG - REMARK]
[2020-01-08 13:49] VITALS: Ht 157.5 cm; Wt 78.6 kg
--- NOTE | 2020-01-08 16:43 | NUR ---
PT STATES FEELING NAUSEATED. DR. FINCH ORDERED ZOFRAN 4 MG IV. I ADMINISTERED ZOFRAN PER ORDER.
--- NOTE | 2020-01-08 18:25 | NUR ---
1809 SECOND UNIT COMPLETED. 1824 POST CBS ORDERED AND LAB NOTIFIED
--- NOTE | 2020-01-08 18:27 | NUR ---
1758 MEDICATED FOR NAUSEA
[2020-01-08 19:11] LABS: BASOPHILS 0.8 % (0-2); EOSINOPHILS 3.1 % (0-7); HEMATOCRIT 29.3 % (36.0-48.0); HEMOGLOBIN 9.5 g/dL (12-16); IMMATURE GRANULOCYTES 0.3 % (0-5); LYMPHOCYTES 13.6 % (15-50); MCH 30.2 pg (26.0-34.0); MCHC 32.4 g/dL (31.0-37.0); MEAN PLATELET VOLUME 10.4 fL (7.4-10.4); MONOCYTES 10.5 % (2-11); NEUTROPHILS 71.7 % (40-80); PLATELET COUNT 61 10x3/uL (130-400); RBC 3.15 10x6/uL (4.00-5.40); RDW 17.2 % (11.5-14.5); WBC 3.8 10x3/uL (4.8-10.8)
--- NOTE | 2020-01-08 19:33 | NUR ---
1700 IV REMOVED AND INSTRUCTIONS GIVEN
[2020-01-08 19:45] LABS: ANION GAP 11.9 mmol/L (8-16); CALCIUM 8.1 mg/dL (8.5-10.1); CARBON DIOXIDE 23.8 mmol/L (21.0-32.0); CREATININE - SERUM 0.9 mg/dL (0.6-1.3); POTASSIUM - SERUM 3.7 mmol/L (3.5-5.1)
[2020-01-08 19:58] LABS: PLATELET ESTIMATE DECREASED
--- NOTE | 2020-01-09 17:57 | OP ---
PATIENT NAME: CARYN HOLCOMB MEDICAL RECORD: [id number] LOCATION:[facility] ADMISSION DATE: SURGEON: KRISS FINCH DO DATE OF OPERATION: 01/08/2020 PROCEDURE: EGD with hemostasis. INDICATIONS FOR PROCEDURE: GI bleed. SCOPE: Olympus video gastroscope. MEDICATIONS: Propofol 250 mg IV and Ric-Synephrine 200 mcg IV per anesthesia. ESTIMATED BLOOD LOSS: Minimal. COMPLICATIONS: None. FINDINGS: Informed consent was given. The patient was made comfortable with the above medication. After reaching an adequate level of sedation by slow IV push, the patient was placed on her left side. The endoscope was advanced under direct visualization through the mouth to the second portion of the duodenum with ease. The esophagus appeared normal down to the GE junction. At the GE junction, there were minor changes consistent with LA class A reflux-induced esophagitis. The endoscope was advanced beyond the GE junction into the stomach and retroflexed to view the cardia and fundus, which appeared normal. The body of the stomach appeared normal. In the antrum, there were 2 sites that appeared slightly hemorrhagic and the tissue appeared polypoid in nature. At the base of one of these sites, there appeared to be an eroded vessel. It was not actively bleeding. For hemostasis, 4 mL of epinephrine diluted 1:10,000 was injected at the base of these 2 polypoid sites. The polypoid areas were removed using a hot snare and a gold probe cautery was used at the base of the sites successfully. The visible vessel at the base of the second site was further cauterized with a gold probe successfully. The endoscope was advanced into the duodenum which appeared normal to the second portion. The endoscope was then withdrawn from the patient. The patient tolerated the procedure well and there were no complications. IMPRESSION: 1. LA class A reflux-induced esophagitis. 2. Improved appearance of portal hypertensive gastropathy. 3. Hemorrhagic polypoid mucosa times 2 sites in the antrum with an ulcerated vessel base at one of these sites. PLAN AND RECOMMENDATIONS: 1. Discharge home when recovery parameters are met. 2. Follow up biopsy specimen results. 3. Continue current diet and medications. 4. Repeat EGD as needed for anemia and melena. TRANSINT:[id number] Voice Confirmation ID: [id number] DOCUMENT ID: [id number] OPERATIVE REPORT [id number] CARYN HOLCOMB NATHAN A DO at 1757 CC: [id number] DICTATION DATE: 01/08/20 162 [employer] HANDLER: 01/09/20 0312 DEP CLI 01/08/20 [place] [id number] [place] [id number]
== END 2020-01-08 17:20 | disposition home or self-care (01) ==
LOC: D.OPS 12:21
PROVIDERS: Anesthesiology; Internal Medicine Gastroenterology; ATTEND Family Medicine
DX: D64.9 Anemia, unspecified (principal); K92.2 Gastrointestinal hemorrhage, unspecified; K21.0 Gastro-esophageal reflux disease with esophagitis; K22.8 Other specified diseases of esophagus; K31.7 Polyp of stomach and duodenum

== ENCOUNTER 2020-01-22 14:32 | Outpatient (CLI) | payer MEDICARE, BC ==
[~2020-01-22] VITALS: Ht 157.5 cm; Wt 77.7 kg
[2020-01-22 15:05] LABS: BASOPHILS 0.4 % (0-2); EOSINOPHILS 2.6 % (0-7); HEMATOCRIT 26.7 % (36.0-48.0); HEMOGLOBIN 8.8 g/dL (12-16); IMMATURE GRANULOCYTES 0.2 % (0-5); LYMPHOCYTES 19.2 % (15-50); MCH 30.8 pg (26.0-34.0); MCV 93.4 fL (80.0-100.0); MEAN PLATELET VOLUME 10.2 fL (7.4-10.4); MONOCYTES 5.2 % (2-11); NEUTROPHILS 72.4 % (40-80); RBC 2.86 10x6/uL (4.00-5.40); RDW 16.5 % (11.5-14.5); WBC 4.6 10x3/uL (4.8-10.8)
[2020-01-22 15:08] LABS: PLATELET COUNT 107 10x3/uL (130-400)
[2020-01-22 15:09] VITALS: BP 96/45; Ht 157.5 cm; Wt 77.7 kg
[2020-01-22 15:15] LABS: ANION GAP 12.1 mmol/L (8-16); CALCIUM 9.3 mg/dL (8.5-10.1); CARBON DIOXIDE 24.8 mmol/L (21.0-32.0); CREATININE - SERUM 0.9 mg/dL (0.6-1.3); POTASSIUM - SERUM 3.9 mmol/L (3.5-5.1)
--- NOTE | 2020-01-22 19:39 | NUR ---
1914 IV REMOVED AND INSTRUCTIONS GIVEN
== END 2020-01-22 19:20 | disposition home or self-care (01) ==
LOC: D.OPS 14:32
PROVIDERS: ATTEND Family Medicine
DX: K92.2 Gastrointestinal hemorrhage, unspecified (principal); D64.9 Anemia, unspecified